=== PATIENT | male | born 1960 | race Caucasian/White ===

== ENCOUNTER 2018-03-05 09:18 | Inpatient (IN) ==
[2018-03-05] MEDS ORDERED: Vancomycin Inj 1,000 MG in Sodium Chlor 0.9% Inj 250 ML IV.SIG STA (09:35)
[2018-03-05] MEDS ORDERED: Piperacil/Tazo 4.5 GM Premix 4.5 GM/100 ML BAG IV.SIG STA (09:35)
--- NOTE | 2018-03-05 09:47 | ED ---
HPI General Chief complaint: Skin/Abscess/Foreign Body Stated complaint: Wound on R foot Time Seen by Provider: 03/05/18 09:28 Source: patient Mode of arrival: ambulatory Limitations: no limitations History of Present Illness HPI narrative: 57 y/o male presents with note of stepping on a nail on Friday. He states a couple days later he developed a low-grade fever. And then after that he developed redness. He went to an urgent care and they placed him on a dressing and Augmentin. He states today when it got worse he went back and they sent him here for further care given infection is spreading. He does note that he is a diabetic. Quality is red. Location is right leg. Severity is progressive. He denies specific modifying factors. He states he did get a tetanus at the urgent care. Related Data Home Medications Medication Instructions Recorded Confirmed albuterol sulfate [Ventolin HFA] 1 - 2 puff INHALATION Q4-6H PRN 03/05/18 ascorbic acid (vitamin C) [Vitamin 250 mg PO DAILY 03/05/18 03/05/18 C] atorvastatin 80 mg PO DAILY 03/05/18 03/05/18 beta carotene 5,000 unit PO DAILY 03/05/18 03/05/18 cholecalciferol (vitamin D3) 2,000 unit PO DAILY 03/05/18 03/05/18 [Vitamin D3] exenatide microspheres [Bydureon 2 mg SUBCUT Q7D 03/05/18 03/05/18 BCise] fluticasone 2 spray INTRANASAL HS 03/05/18 03/05/18 fluticasone-salmeterol [Advair 1 inh INHALATION BID 03/05/18 03/05/18 Diskus] glimepiride 2 mg PO BID 03/05/18 03/05/18 insulin degludec [Tresiba 30 unit SUBCUT HS 03/05/18 03/05/18 FlexTouch U-100] lisinopril 10 mg PO DAILY 03/05/18 03/05/18 metformin 1,000 mg PO DAILY 03/05/18 03/05/18 multivitamin 1 tab PO DAILY 03/05/18 03/05/18 omega-3 fatty acids [Fish Oil 1,000 mg PO DAILY 03/05/18 03/05/18 Concentrate] sildenafil 25 mg PO DAILY PRN 03/05/18 03/05/18 vit B complex 100 combo no.2 1 tab PO DAILY 03/05/18 03/05/18 [B-100 Complex] vitamin E 200 unit PO DAILY 03/05/18 03/05/18 Allergies Allergy/AdvReac Type Severity Reaction Status Date / Time No Known Allergies Allergy Verified 03/05/18 09:21 Review of Systems ROS: all other systems reviewed are negative FOR[facility]LY [facility] Medical History Medical History Diabetes (Acute) Elevated cholesterol (Acute) HTN (hypertension) (Acute) History of traumatic rupture of spleen (Acute) Kidney stone (Acute) Peripheral neuropathy (Acute) Surgical History Surgical History History of foot surgery (Acute) History of surgical procedure on eye proper using laser (Acute) History of tonsillectomy and adenoidectomy (Acute) Hx of sinus surgery (Acute) Social History Social History Substance History: No History of Abuse Smoking Status: Former smoker How Often Do You Have a Drink Containing Alcohol: Monthly or less Recent Travel in [place] within the Last 8 Weeks: No Recent Out of Country Travel within the Last 8 Weeks: No Exam Narrative Exam Narrative: GENERAL: 57 y/o male in no apparent distress SKIN: Patient has erythema and warmth noted to the top of his right foot. He also has a secondary area to his right upper medial leg just below his knee that has erythema and warmth. To the plantar aspect of his right foot he has a small cut noted without active drainage at the moment that also has concurrent erythema and warmth, no crepitus, no obvious induration HEAD: Atraumatic. Normocephalic. EYES: Pupils equal and round. No scleral icterus. No injection or drainage. ENT: No nasal bleeding or discharge. Mucous membranes pink and moist. NECK: Trachea midline. No JVD. CARDIOVASCULAR: Regular rate and rhythm. RESPIRATORY: No accessory muscle use. GASTROINTESTINAL: Abdomen nondistended. MUSCULOSKELETAL: No obvious deformities. No clubbing. No cyanosis. Pain with palpation of right foot, no pain with other joints , neurovascularly intact, compartments soft. NEUROLOGICAL: Awake and alert. No obvious cranial nerve deficits. Motor grossly within normal limits. Normal speech. PSYCHIATRIC: Appropriate mood and affect; insight and judgment normal. Course Reevaluation(s) Reevaluation #1: patient updated and agrees to admit and mri Consultations Consultation #1: dr martinez states to get mri stat and can admit to [facility] Consultation #2: dr cunningham agrees to admit Initial Documented Vital Signs Temperature 98.7 F 03/05/18 09:21 Pulse Rate 99 H 03/05/18 09:21 Respiratory Rate 16 03/05/18 09:21 Pulse Oximetry 96 03/05/18 09:21 Last Documented Vital Signs Temperature 98.7 F 03/05/18 09:21 Pulse Rate 95 H 03/05/18 10:15 Respiratory Rate 16 03/05/18 10:15 Blood Pressure 119/71 03/05/18 10:15 Pulse Oximetry 96 03/05/18 10:15 Medical Decision Making MDM Narrative Medical decision making narrative: Will check blood work, x-ray and reevaluate Medical Screen Exam Complete: Yes Emergency Medical Condition: Yes Differential Diagnosis Differential Diagnosis: Abscess, cellulitis, foreign body Lab Data Lab results reviewed: Yes I reviewed the patient's lab results. Result diagrams: 03/05/18 11:00 03/05/18 11:00 Lab Results 03/05/18 03/05/18 03/05/18 Range/Units 10:19 11:00 11:00 CBC w Diff Auto diff final WBC 10.0 (4.0-11.0) th/mm3 RBC 4.71 (4.50-5.90) mil/mm3 Hgb 14.1 (13.0-17.0) gm/dL Hct 43.1 (39.0-51.0) % MCV 91.6 (80.0-100.0) fL MCH 29.9 (27.0-34.0) pg MCHC 32.7 (32.0-36.0) % RDW 13.3 (11.6-17.2) % Plt Count 236 (150-450) th/mm3 MPV 7.8 (7.0-11.0) fL Neut % (Auto) 80.1 H (16.0-70.0) % Lymph % (Auto) 9.4 (9.0-44.0) % [place] % (Auto) 8.0 (0.0-8.0) % Eos % (Auto) 1.8 (0.0-4.0) % Baso % (Auto) 0.7 (0.0-2.0) % Neut # (Auto) 8.0 H (1.8-7.7) th/mm3 Lymph # (Auto) 0.9 L (1.0-4.8) th/mm3 [place] # (Auto) 0.8 (0.0-0.9) th/mm3 Eos # (Auto) 0.2 (0.0-0.4) th/mm3 Baso # (Auto) 0.1 (0.0-0.2) th/mm3 WBC Differential . Differential Comment . Sodium 137 (136-145) meq/L Potassium 4.1 (3.5-5.1) meq/L Chloride 101 (98-107) meq/L Carbon Dioxide 24.8 (21.0-32.0) meq/L Anion Gap 11 (5-15) meq/L BUN 17 (7-18) mg/dL Creatinine 0.84 (0.60-1.30) mg/dL Estimated GFR Greater than 89 (>89) mL/min POC Glucose 147 H (68-110) mg/dl Random Glucose 125 H (74-106) mg/dL Lactic Acid (0.4-2.0) mmol/L Calcium 9.2 (8.5-10.1) mg/dL 03/05/18 Range/Units 11:00 CBC w Diff WBC (4.0-11.0) th/mm3 RBC (4.50-5.90) mil/mm3 Hgb (13.0-17.0) gm/dL Hct (39.0-51.0) % MCV (80.0-100.0) fL MCH (27.0-34.0) pg MCHC (32.0-36.0) % RDW (11.6-17.2) % Plt Count (150-450) th/mm3 MPV (7.0-11.0) fL Neut % (Auto) (16.0-70.0) % Lymph % (Auto) (9.0-44.0) % [place] % (Auto) (0.0-8.0) % Eos % (Auto) (0.0-4.0) % Baso % (Auto) (0.0-2.0) % Neut # (Auto) (1.8-7.7) th/mm3 Lymph # (Auto) (1.0-4.8) th/mm3 [place] # (Auto) (0.0-0.9) th/mm3 Eos # (Auto) (0.0-0.4) th/mm3 Baso # (Auto) (0.0-0.2) th/mm3 WBC Differential Differential Comment Sodium (136-145) meq/L Potassium (3.5-5.1) meq/L Chloride (98-107) meq/L Carbon Dioxide (21.0-32.0) meq/L Anion Gap (5-15) meq/L BUN (7-18) mg/dL Creatinine (0.60-1.30) mg/dL Estimated GFR (>89) mL/min POC Glucose (68-110) mg/dl Random Glucose (74-106) mg/dL Lactic Acid 1.1 (0.4-2.0) mmol/L Calcium (8.5-10.1) mg/dL Imaging Data Attestation: I personally reviewed and interpreted this imaging study as follows : Radiologist's impression: Foot X-Ray 03/05/18 09:35 CONCLUSION: 1. There is gas within the subcutaneous tissues which overlie the proximal phalanx of the second digit. No retained foreign body or destructive changes are seen within the proximal phalanx of the second digit. 2. Previous attempted fusion with failure of the hardware and advanced degenerative changes. Discharge Plan Discharge Disposition Patient Disposition: 30 Still Patient Discharge Details Diagnosis: Diabetic infection of right foot Physicians Team ED Provider: Dawn Hinds Primary Care Provider: Juhi Weller Rxs /Orders / Referrals /Forms Prescriptions: No Action multivitamin Tablet 1 tab PO DAILY RF: 0 fluticasone-salmeterol [Advair Diskus] 250-50 mcg/dose Blister With Device 1 inh INHALATION BID RF: 0 atorvastatin 80 mg Tablet 80 mg PO DAILY RF: 0 vitamin E 200 unit Capsule 200 unit PO DAILY RF: 0 omega-3 fatty acids [Fish Oil Concentrate] 1,000 mg Capsule 1,000 mg PO DAILY RF: 0 sildenafil 25 mg Tablet 25 mg PO DAILY PRN (Reason: activity) RF: 0 glimepiride 2 mg Tablet 2 mg PO BID RF: 0 ascorbic acid (vitamin C) [Vitamin C] 250 mg Tablet 250 mg PO DAILY RF: 0 metformin 1,000 mg Tablet 1,000 mg PO DAILY RF: 0 lisinopril 10 mg Tablet 10 mg PO DAILY RF: 0 beta carotene 10,000 unit Capsule 5,000 unit PO DAILY RF: 0 albuterol sulfate [Ventolin HFA] 90 mcg/actuation Hfa Aerosol Inhaler 1 - 2 puff INHALATION Q4-6H PRN (Reason: Shortness Of Breath) RF: 0 fluticasone 50 mcg/actuation [place],Suspension 2 spray Intranasal HS RF: 0 vit B complex 100 combo no.2 [B-100 Complex] 100 mg Tablet Extended Release 1 tab PO DAILY RF: 0 insulin degludec [Tresiba FlexTouch U-100] 100 unit/mL (3 mL) Insulin Pen 30 unit SUBCUT HS RF: 0 exenatide microspheres [Bydureon BCise] 2 mg/0.85 mL Auto-Injector 2 mg SUBCUT Q7D RF: 0 cholecalciferol (vitamin D3) [Vitamin D3] 2,000 unit Capsule 2,000 unit PO DAILY RF: 0 Discharge Interventions Interventions: Vital Signs Last Done: 03/05/18 10:15 Status ED Status: Admitted Patient
--- NOTE | 2018-03-05 10:09 | XR ---
EXAM DATE: 03/05/2018 9:54 AM EST AGE/SEX: 57 years / Male INDICATIONS: Right foot redness and swelling; stepped on nail. Wound on plantar surface of the right foot. CLINICAL DATA: This is the patient's initial encounter. Patient reports that signs and symptoms have been present for 4 - 6 days and indicates a pain score of 6/10. MEDICAL/SURGICAL HISTORY: Diabetes. . ORIF right foot/ ankle. COMPARISON: No prior exams available for comparison. FINDINGS: The examination demonstrates postsurgical changes involving the right foot. There has been attempted fusion of the talonavicular joint as well as the calcaneocuboid joint. The orthopedic hardware is fra ctured in multiple pieces. There are degenerative changes and pes planus. There appears to have been an old patellar dome fracture. The examination demonstrates gas in the deep subcutaneous tissues of the plantar surface of the right foot. The gas overlies the proximal phalanx of the second digit. I see no cortical destruction. CONCLUSION: 1. There is gas within the subcutaneous tissues which overlie the proximal phalanx of the second dig it. No retained foreign body or destructive changes are seen within the proximal phalanx of the secon d digit. 2. Previous attempted fusion with failure of the hardware and advanced degenerative changes. Electronically signed by: Kieran Francois MD 03/05/2018 10:08 AM EST
[2018-03-05 11:11] LABS: Baso # (Auto) 0.1 th/mm3 (0.0-0.2); Baso % (Auto) 0.7 % (0.0-2.0); Eos # (Auto) 0.2 th/mm3 (0.0-0.4); Eos % (Auto) 1.8 % (0.0-4.0); Hematocrit 43.1 % (39.0-51.0); Hemoglobin 14.1 gm/dL (13.0-17.0); Lymph # (Auto) 0.9 th/mm3 (1.0-4.8); Lymph % (Auto) 9.4 % (9.0-44.0); Mean Corpuscular HGB Conc 32.7 % (32.0-36.0); Mean Corpuscular Hemoglobin 29.9 pg (27.0-34.0); Mean Corpuscular Volume 91.6 fL (80.0-100.0); Mean Platelet Volume 7.8 fL (7.0-11.0); Mono # (Auto) 0.8 th/mm3 (0.0-0.9); Neut % (Auto) 80.1 % (16.0-70.0); Platelet Count 236 th/mm3 (150-450); Red Blood Count 4.71 mil/mm3 (4.50-5.90); Red Cell Distribution Width 13.3 % (11.6-17.2)
[2018-03-05 11:29] LABS: Chloride 101 meq/L (98-107); Potassium 4.1 meq/L (3.5-5.1); Sodium 137 meq/L (136-145)
[2018-03-05 11:32] LABS: Calcium 9.2 mg/dL (8.5-10.1); Glucose,Random 125 mg/dL (74-106)
[2018-03-05 11:33] LABS: Anion Gap 11 meq/L (5-15); Blood Urea Nitrogen 17 mg/dL (7-18); Carbon Dioxide 24.8 meq/L (21.0-32.0)
[2018-03-05 11:36] LABS: Glomerular Filtration Rate Greater Than 89 mL/min (>89)
[2018-03-05] MEDS ORDERED: Vancomycin Inj 1,000 MG in Sodium Chlor 0.9% Inj 250 ML IV.SIG ONE (12:20)
[2018-03-05] MEDS ORDERED: Dextrose 50% in Water 50 ML Vial IV.PUSH PRN (12:21)
[2018-03-05] MEDS ORDERED: Piperacil/Tazo 3.375 GM Premix 50 ML IV.SIG SCH (12:30)
--- NOTE | 2018-03-05 12:40 | P.HP ---
History of Present Illness Service: [facility] adult med Primary Care Physician: Juhi Weller MD Chief Complaint: foot wound History of Present Illness: 57 y/o male with poorly controlled DM retinopathy and prior Charcot joint presents with note of stepping on a nail on Wednesday 02/28. He states a couple days later he developed a low-grade fever and then after that he developed redness. He went to an urgent care 03/02 and they placed him on a dressing and Augmentin. He states today when it got worse he went back 03/05 for recheck and they sent him here for further care given infection is spreading. He has been taking meds as directed. Still with d/c from wound and had fevers early on as well. Culture from 03/02 reveals Staph aureus but no sensitivities resulted yet per review of outpt EMR. Foot xray reveals chronic arthritic and postsurgical changes as well as gas collection in foot. Podiatry contacted by ER provider (per ER report) and they advised MRI and admission for IV abx/ further eval. SH for 30 yrs Originally from [place], has been in the area works as a estimator and drafter No tobacco since 1997 but prior to that smoked about a pack per day for 18 years No alcohol or illicit drug use - Diagnosis (1) Diabetic infection of right foot (2) DM type 2, uncontrolled, with retinopathy (3) GERD (gastroesophageal reflux disease) (4) HTN (hypertension) (5) Hyperlipidemia Review of Systems Constitutional: Reports chills, Reports fever(s) Eyes: Reports blurry vision, Denies blind spots, Denies bulging eyes, Denies change in vision, Denies double vision, Denies discharge, Denies dry eyes, Denies floaters, Denies irritation, Denies itchy eyes, Denies loss of vision, Denies pain, Denies sensitivity to light, Denies other Ears, Nose, Mouth, and Throat: Denies abnormal hearing, Denies bleeding gums, Denies bad breath, Denies change in voice, Denies dental pain, Denies difficulty swallowing, Denies dizziness, Denies dry mouth, Denies ear discharge , Denies ear pain, Denies facial pain, Denies headache(s), Denies hearing loss, Denies hoarseness, Denies lip swelling, Denies nosebleed, Denies mouth lesions, Denies mouth pain, Denies nasal congestion, Denies nasal discharge, Denies nasal obstruction, Denies nasal trauma, Denies neck lump, Denies neck pain, Denies nose pain, Denies pain with swallowing, Denies poor balance, Denies post nasal drip, Denies ringing in the ears, Denies sinus pain, Denies sinus pressure , Denies sore throat, Denies throat swelling, Denies tongue swelling, Denies other Cardiovascular: Denies chest pain, Denies chest pain at rest, Denies chest pain with activity, Denies excessive sweating, Denies fainting, Denies fast heart rate, Denies foot swelling, Denies generalized swelling, Denies irregular heart rhythm, Denies leg pain with activity, Denies leg sores, Denies leg swelling, Denies lightheadedness, Denies radiating jaw, neck or arm pain, Denies rapid, pounding, or irregular heartbeat, Denies shortness of breath, Denies shortness of breath with activity, Denies shortness of breath when lying down, Denies shortness of breath causing sudden awakening, Denies slow heart rate, Denies other Respiratory: Denies change in phlegm color, Denies chest congestion, Denies cough, Denies coughing up blood, Denies excessive phlegm production, Denies pain on inspiration, Denies pain with cough, Denies shortness of breath, Denies shortness of breath with activity, Denies snoring, Denies stridor, Denies wheezing, Denies other Gastrointestinal: Denies abdominal pain, Denies belching, Denies black, tarry stools, Denies bloating, Denies bright, red blood in stools, Denies change in bowel habits, Denies constant urge to pass stool, Denies change in stools, Denies coffee ground vomit, Denies constipation, Denies cramping, Denies difficulty swallowing, Denies excessive passing of gas, Denies feeling full early, Denies heartburn, Denies incontinent of stools, Denies loose stools, Denies nausea, Denies pain with swallowing, Denies vomiting, Denies vomiting blood, Denies other Musculoskeletal: Reports abnormal walking, Reports deformity, Reports joint pain Skin/Breast: Reports change in skin color, Reports dry skin, Reports non- healing lesions, Reports skin ulcer, Reports wounds Neurologic: Reports abnormal walking PMFSH - History History Provided By: Patient - Medical History Medical History: Medical History (Last Updated 03/05/18 @ 12:36 by Josh Hodges MD, PhD) Hyperlipidemia (Chronic) GERD (gastroesophageal reflux disease) (Chronic) DM type 2, uncontrolled, with retinopathy (Chronic) HTN (hypertension) (Chronic) Charcot ankle Diabetes Elevated cholesterol History of traumatic rupture of spleen Kidney stone Peripheral neuropathy - Surgical History Surgical History: Surgical History (Last Updated 03/05/18 @ 12:34 by Josh Hodges MD, PhD) History of foot surgery History of nasal surgery History of surgical procedure on eye proper using laser History of tonsillectomy and adenoidectomy Hx of sinus surgery - Family History Family History: Family History (Last Updated 03/05/18 @ 12:34 by Josh Hodges MD, PhD) Other Diabetes Hypertension - Social History I have reviewed the patient's Social History: Yes - Tobacco History Smoking Status: Former smoker Years Smoked: 18 Number of Pack Years (if former smoker): 18 Smoking End Date: 1997 - Alcohol History How Often Do You Have a Drink Containing Alcohol: Never - Substance Use History Substance History: No History of Abuse - Travel History Recent Travel in the [place] Within the Last 8 Weeks: No Recent Travel Out of the Country Within the Last 8 Weeks: No - Immunization History Tetanus Immunization: <5 Years (03/02/18) Tetanus Immunization Year if Known: 2017 Medications and Allergies Active Medications: Active Medications Dextrose (D50w Vial) 50 ml IV.PUSH UNSCH PRN PRN Reason: PER HYPOGLYCEMIA PROTOCOL Glucagon (Glucagon Inj) 1 mg OTHER PRN PRN PRN Reason: for Hypoglycemia Protocol Sodium Chloride (Ns Inj) 1,000 mls @ 100 mls/hr IV.CONT .Q10H MALACHI Stop: 03/06/18 08:29 Vancomycin HCl 1,000 mg/ (Sodium Chloride) 250 mls @ 250 mls/hr IV.SIG ONCE ONE Stop: 03/05/18 13:19 Piperacillin/Tazobactam/Dextrose (Zosyn 3.375 Gm Premix) 50 mls @ 100 mls/hr IV.SIG Q8H MALACHI Insulin Aspart (Novolog Insulin Correctional Sugar Inj) 0 unit SQ ACHS MALACHI; Protocol Pharmacy Profile Note (Vancomycin Consult Pharmacy) 1 each OTHER UNSCH PRN PRN Reason: Pharmacy to dose Allergies Allergy/AdvReac Type Severity Reaction Status Date / Time No Known Allergies Allergy Verified 03/05/18 09:21 Home Medications Medication Instructions Recorded Confirmed Type albuterol sulfate [Ventolin HFA] 1 - 2 puff INHALATION Q4-6H PRN 03/05/18 History ascorbic acid (vitamin C) [Vitamin 250 mg PO DAILY 03/05/18 03/05/18 History C] atorvastatin 80 mg PO DAILY 03/05/18 03/05/18 History beta carotene 5,000 unit PO DAILY 03/05/18 03/05/18 History cholecalciferol (vitamin D3) 2,000 unit PO DAILY 03/05/18 03/05/18 History [Vitamin D3] exenatide microspheres [Bydureon 2 mg SUBCUT Q7D 03/05/18 03/05/18 History BCise] fluticasone 2 spray INTRANASAL HS 03/05/18 03/05/18 History fluticasone-salmeterol [Advair 1 inh INHALATION BID 03/05/18 03/05/18 History Diskus] glimepiride 2 mg PO BID 03/05/18 03/05/18 History insulin degludec [Tresiba 30 unit SUBCUT HS 03/05/18 03/05/18 History FlexTouch U-100] lisinopril 10 mg PO DAILY 03/05/18 03/05/18 History metformin 1,000 mg PO DAILY 03/05/18 03/05/18 History multivitamin 1 tab PO DAILY 03/05/18 03/05/18 History omega-3 fatty acids [Fish Oil 1,000 mg PO DAILY 03/05/18 03/05/18 History Concentrate] sildenafil 25 mg PO DAILY PRN 03/05/18 03/05/18 History vit B complex 100 combo no.2 1 tab PO DAILY 03/05/18 03/05/18 History [B-100 Complex] vitamin E 200 unit PO DAILY 03/05/18 03/05/18 History Exam Vital signs: Vital Signs 03/05/18 09:21 03/05/18 10:15 Temperature 98.7 F Pulse Rate 99 H 95 H Respiratory Rate 16 16 Blood Pressure 119/71 Pulse Oximetry 96 96 Intake & Output 11/28/18 11/29/18 11/29/18 18:59 06:59 18:59 Intake Total 100 / 100 Balance 100 / 100 Weight 113 kg Intake: IV 100 / 100 Zosyn 4.5 GM Premix 4.5 gm In 100 / 100 100 ml @ 200 mls/hr IV.SIG STAT STA Rx#:[id number] Narrative: GENERAL: No acute distress, alert and oriented, cooperative with exam SKIN: Warm and dry. Right lower extremity with erythematous patch medial proximal calf, right distal foot with erythema and edema as well as tenderness to palpation. Right distal foot plantar aspect with open wound with yellowish to serous drainage. HEAD: Atraumatic. Normocephalic. EYES: Pupils equal and round. No scleral icterus. No injection or drainage. ENT: No nasal bleeding or discharge. Mucous membranes pink and moist. NECK: Trachea midline. No JVD. CARDIOVASCULAR: Regular rate and rhythm. No murmur appreciated. RESPIRATORY: No accessory muscle use. Clear to auscultation. Breath sounds equal bilaterally. GASTROINTESTINAL: Abdomen soft, non-tender, nondistended. Hepatic and splenic margins not palpable. MUSCULOSKELETAL: Extremities without clubbing, cyanosis, or edema. No obvious deformities. Right lower extremity as above. Chronic Charcot joint changes right ankle. NEUROLOGICAL: Awake and alert. No obvious cranial nerve deficits. Motor grossly within normal limits. Five out of 5 muscle strength in the arms and legs. Normal speech. PSYCHIATRIC: Appropriate mood and affect; insight and judgment normal. Results - Labs CBC & Chem 7: 03/05/18 11:00 03/05/18 11:00 Labs: Laboratory Results - last 24 hr 03/05/18 03/05/18 03/05/18 10:19 11:00 11:00 CBC w Diff Auto diff final WBC 10.0 RBC 4.71 Hgb 14.1 Hct 43.1 MCV 91.6 MCH 29.9 MCHC 32.7 RDW 13.3 Plt Count 236 MPV 7.8 Neut % (Auto) 80.1 H Lymph % (Auto) 9.4 [place] % (Auto) 8.0 Eos % (Auto) 1.8 Baso % (Auto) 0.7 Neut # (Auto) 8.0 H Lymph # (Auto) 0.9 L [place] # (Auto) 0.8 Eos # (Auto) 0.2 Baso # (Auto) 0.1 WBC Differential . Differential Comment . Sodium 137 Potassium 4.1 Chloride 101 Carbon Dioxide 24.8 Anion Gap 11 BUN 17 Creatinine 0.84 Estimated GFR Greater than 89 POC Glucose 147 H Random Glucose 125 H Lactic Acid Calcium 9.2 03/05/18 11:00 CBC w Diff WBC RBC Hgb Hct MCV MCH MCHC RDW Plt Count MPV Neut % (Auto) Lymph % (Auto) [place] % (Auto) Eos % (Auto) Baso % (Auto) Neut # (Auto) Lymph # (Auto) [place] # (Auto) Eos # (Auto) Baso # (Auto) WBC Differential Differential Comment Sodium Potassium Chloride Carbon Dioxide Anion Gap BUN Creatinine Estimated GFR POC Glucose Random Glucose Lactic Acid 1.1 Calcium - Imaging Impressions Foot X-Ray 03/05/18 09:35 CONCLUSION: 1. There is gas within the subcutaneous tissues which overlie the proximal phalanx of the second digit. No retained foreign body or destructive changes are seen within the proximal phalanx of the second digit. 2. Previous attempted fusion with failure of the hardware and advanced degenerative changes. Caprini VTE Risk Assessment Caprini VTE Risk Assessment: Moderate/High Risk (score >= 2) Caprini Risk Assessment Model: Point Value = 1 Point Value = 2 Point Value = 3 Point Value = 5 Age 41-60 Minor surgery BMI > 25 kg/m2 Swollen legs Varicose veins or History of unexplained or recurrent spontaneous Oral contraceptives or hormone replacement Sepsis (< 1 month) Serious lung disease, including pneumonia (< 1 month) Abnormal pulmonary function Acute myocardial infarction Congestive heart failure (< 1 month) History of inflammatory bowel disease Medical patient at bed rest Age 61-74 Arthroscopic surgery Major open surgery (> 45 min) Laparoscopic surgery (> 45 min) Malignancy Confined to bed (> 72 hours) Immobilizing plaster cast Central venous access Age >= 75 History of VTE Family history of VTE Factor V Leiden Prothrombin [id number] Lupus anticoagulant Anticardiolipin antibodies Elevated serum homocysteine Heparin-induced thrombocytopenia Other congenital or acquired thrombophilia Stroke (< 1 month) Elective arthroplasty Hip, pelvis, or leg fracture Acute spinal cord injury (< 1 month) Prophylaxis Regimen: Total Risk Factor Score Risk Level Prophylaxis Regimen 0-1 Low Early ambulation 2 Moderate Order ONE of the following: *Sequential Compression Device (SCD) *Heparin 5000 units SQ BID 3-4 Higher Order ONE of the following medications: *Heparin 5000 units SQ TID *Enoxaparin/Lovenox 40 mg SQ daily (WT < 150 kg, CrCl > 30 mL/min) *Enoxaparin/Lovenox 30 mg SQ daily (WT < 150 kg, CrCl > 10-29 mL/min) *Enoxaparin/Lovenox 30 mg SQ BID (WT < 150 kg, CrCl > 30 mL/min) AND/OR *Sequential Compression Device (SCD) 5 or more Highest Order ONE of the following medications: *Heparin 5000 units SQ TID (Preferred with Epidurals) *Enoxaparin/Lovenox 40 mg SQ daily (WT < 150 kg, CrCl > 30 mL/min) *Enoxaparin/Lovenox 30 mg SQ daily (WT < 150 kg, CrCl > 10-29 mL/min) *Enoxaparin/Lovenox 30 mg SQ BID (WT < 150 kg, CrCl > 30 mL/min) AND *Sequential Compression Device (SCD) Assessment and Plan - Assessment (1) Diabetic infection of right foot Code(s): E11.628 - Type 2 diabetes mellitus with other skin complications; L08.9 - Local infection of the skin and subcutaneous tissue, unspecified Status: Acute Plan: Recurrent issue, but acute flare due to recent puncture wound. Podiatry consult , IV Abx, MRI ordered per d/w ER provider. Rula growing in outpt cltx. Podiatry in the room during my exam and appears to be preparing for bedside I&D of right foot wound. (2) DM type 2, uncontrolled, with retinopathy Code(s): E11.319 - Type 2 diabetes mellitus with unspecified diabetic retinopathy without macular edema; E11.65 - Type 2 diabetes mellitus with hyperglycemia Status: Chronic Plan: accucheck with SSI initiated A1c 8.4 in Jan 2018. Advised wt loss. (3) GERD (gastroesophageal reflux disease) Code(s): K21.9 - Gastro-esophageal reflux disease without esophagitis Status: Chronic Plan: provide zantac or similar med (4) HTN (hypertension) Code(s): I10 - Essential (primary) hypertension Status: Chronic Plan: continue meds as BP permits (5) Hyperlipidemia Code(s): E78.5 - Hyperlipidemia, unspecified Status: Chronic Plan: continue med - Plan Code Status: full Discussed Condition With: Patient, lymphedema therapist and ER provider (4) HTN (hypertension) Qualifiers: Hypertension type: essential hypertension Qualified Code(s): I10 - Essential (primary) hypertension
[2018-03-05] MEDS ORDERED: Gadobutrol PF 2 MMOL/2 ML Vial (for RAD) IV.SIG ONE (13:22)
[2018-03-05] MEDS ORDERED: Vancomycin Consult Pharmacy OTHER PRN (13:30)
[2018-03-05] MEDS ORDERED: Lidocaine 1% Inj 50 ML Vial ONE (15:25)
--- NOTE | 2018-03-05 15:35 | MR ---
EXAM DATE: 03/05/2018 1:28 PM EST AGE/SEX: 57 years / Male INDICATIONS: Abscess. Abscess on proximal plantar aspect of right foot. CLINICAL DATA: This is the patient's initial encounter. Patient reports that signs and symptoms have been present for 1 week and indicates a pain score of 3/10. MEDICAL/SURGICAL HISTORY: Hypertension. Diabetes mellitus type II. Tonsillectomy. Right foot a nd sinus surgery. COMPARISON: [facility], FOOT COMPLETE RIGHT 3V, 03/05/2018. . TECHNIQUE: Multiplanar, multisequence MRI examination was performed without contrast and after th e intravenous administration of 11 ml Omniscan (gadodiamide) single exam dose. FINDINGS: There is a roughly 3 cm x 2 cm x 9 mm presumed phlegmonous collection in the plantar soft tissues sup erficial to the second third toe proximal phalanges with hypointense specks internally consistent wit h air as noted on the patient's plain films. The underlying bony elements are grossly benign in appea gigi with no findings to specifically suggest associated osteomyelitis or adjacent septic arthritis. The processes superficial to the flexor tendon structures. CONCLUSION: Small presumed phlegmonous collection in the plantar soft tissues of the right forefoot as described Electronically signed by: Jay Chappell MD 03/05/2018 3:33 PM EST
--- NOTE | 2018-03-05 15:54 | P.CON ---
History of Present Illness Service: Foot and ankle surgery/podiatry Consult date: 03/05/18 Reason for Consult: Right foot wound Primary Care Provider: Juhi Weller MD Chief Complaint: foot wound History of Present Illness: Podiatry consulted for this 57-year-old male with poorly controlled diabetes history of right foot Charcot reconstruction for submetatarsal two wound. Patient states he stepped on a nail Wednesday 02/28. He developed a low-grade fever and was given oral antibiotics in urgent care on 03/02. Patient states he noticed that the infection was getting worse he went back to urgent care and they referred him for hospital admission. Patient states his been taking Augmentin as directed patient does report drainage. Patient denies any nausea vomiting fevers or chills. He reports neuropathy to right foot. Review of Systems Constitutional: Denies anorexia, Denies body ache(s), Denies chills, Denies fever(s), Denies headache(s), Denies night sweats Gastrointestinal: Denies nausea, Denies vomiting PMFSH - History History Provided By: Patient - Medical History Medical History: Medical History (Last Updated 03/05/18 @ 12:36 by Josh Hodges MD, PhD) Hyperlipidemia (Chronic) GERD (gastroesophageal reflux disease) (Chronic) DM type 2, uncontrolled, with retinopathy (Chronic) HTN (hypertension) (Chronic) Charcot ankle Diabetes Elevated cholesterol History of traumatic rupture of spleen Kidney stone Peripheral neuropathy - Surgical History Surgical History: Surgical History (Last Updated 03/05/18 @ 12:34 by Josh Hodges MD, PhD) History of foot surgery History of nasal surgery History of surgical procedure on eye proper using laser History of tonsillectomy and adenoidectomy Hx of sinus surgery - Family History Family History: Family History (Last Updated 03/05/18 @ 12:34 by Josh Hodges MD, PhD) Other Diabetes Hypertension - Tobacco History Second Hand Smoke Exposure: No Tobacco Use In Past 30 Days: No Smoking Status: Former smoker Years Smoked: 18 Number of Pack Years (if former smoker): 18 Smoking End Date: 1997 - Alcohol History How Often Do You Have a Drink Containing Alcohol: Never - Substance Use History Substance History: No History of Abuse - Travel History Recent Travel in the [place] Within the Last 8 Weeks: No Recent Travel Out of the Country Within the Last 8 Weeks: No - Immunization History Tetanus Immunization: <5 Years (03/02/18) Tetanus Immunization Year if Known: 2018 Medications and Allergies Active Medications: Active Medications Albuterol (Ventolin Hfa Inh) 2 puff INH Q4H PRN PRN Reason: SHORTNESS OF BREATH Atorvastatin Calcium (Lipitor) 80 mg PO DAILY MALACHI Dextrose (D50w Vial) 50 ml IV.PUSH UNSCH PRN PRN Reason: PER HYPOGLYCEMIA PROTOCOL Fluticasone Propionate (Flonase Nasal [place]) 2 spray EACH NARE HS MALACHI Glucagon (Glucagon Inj) 1 mg OTHER PRN PRN PRN Reason: for Hypoglycemia Protocol Sodium Chloride (Ns Inj) 1,000 mls @ 100 mls/hr IV.CONT .Q10H MALACHI Stop: 03/06/18 08:29 Piperacillin/Tazobactam/Dextrose (Zosyn 3.375 Gm Premix) 50 mls @ 100 mls/hr IV.SIG Q8H MALACHI Vancomycin HCl 1,800 mg/ (Sodium Chloride) 518 mls @ 250 mls/hr IV.SIG Q12H MALACHI Insulin Aspart (Novolog Insulin Correctional Sugar Inj) 0 unit SQ ACHS MALACHI; Protocol Lisinopril (Prinivil) 10 mg PO DAILY MALACHI Miscellaneous Information ([facility] Ordered Lab Info) 0 each OTHER ONCE ONE Stop: 03/07/18 07:46 Pharmacy Profile Note (Vancomycin Consult Pharmacy) 1 each OTHER UNSCH PRN PRN Reason: Pharmacy to dose Vitamin D (Vitamin D3) 2,000 unit PO DAILY MALACHI Allergies Allergy/AdvReac Type Severity Reaction Status Date / Time No Known Allergies Allergy Verified 03/05/18 09:21 Home Medications Medication Instructions Recorded Confirmed Type albuterol sulfate [Ventolin HFA] 1 - 2 puff INHALATION Q4-6H PRN 03/05/18 History ascorbic acid (vitamin C) [Vitamin 250 mg PO DAILY 03/05/18 03/05/18 History C] atorvastatin 80 mg PO DAILY 03/05/18 03/05/18 History beta carotene 5,000 unit PO DAILY 03/05/18 03/05/18 History cholecalciferol (vitamin D3) 2,000 unit PO DAILY 03/05/18 03/05/18 History [Vitamin D3] exenatide microspheres [Bydureon 2 mg SUBCUT Q7D 03/05/18 03/05/18 History BCise] fluticasone 2 spray INTRANASAL HS 03/05/18 03/05/18 History fluticasone-salmeterol [Advair 1 inh INHALATION BID 03/05/18 03/05/18 History Diskus] glimepiride 2 mg PO BID 03/05/18 03/05/18 History insulin degludec [Tresiba 30 unit SUBCUT HS 03/05/18 03/05/18 History FlexTouch U-100] lisinopril 10 mg PO DAILY 03/05/18 03/05/18 History metformin 1,000 mg PO DAILY 03/05/18 03/05/18 History multivitamin 1 tab PO DAILY 03/05/18 03/05/18 History omega-3 fatty acids [Fish Oil 1,000 mg PO DAILY 03/05/18 03/05/18 History Concentrate] sildenafil 25 mg PO DAILY PRN 03/05/18 03/05/18 History vit B complex 100 combo no.2 1 tab PO DAILY 03/05/18 03/05/18 History [B-100 Complex] vitamin E 200 unit PO DAILY 03/05/18 03/05/18 History Physical Exam Vital signs: Vital Signs 03/05/18 09:21 03/05/18 10:15 03/05/18 10:30 Temperature 98.7 F Pulse Rate 99 H 95 H Respiratory Rate 16 16 Blood Pressure 119/71 Pulse Oximetry 96 96 96 03/05/18 11:19 03/05/18 12:18 03/05/18 13:17 Temperature Pulse Rate 92 H 93 H 88 Respiratory Rate 16 16 16 Blood Pressure 115/73 139/71 Pulse Oximetry 96 96 97 Intake & Output 03/04/18 03/05/18 03/05/18 18:59 06:59 18:59 Intake Total 350 / 350 Balance 350 / 350 Weight 113 kg Intake: IV 350 / 350 Zosyn 4.5 GM Premix 4.5 gm In 100 / 100 100 ml @ 200 mls/hr IV.SIG STAT STA Rx#:[id number] Vancomycin Inj 1,000 MG In NS 250 / 250 Inj 250 ML @ 250 mls/hr IV.SIG STAT STA Rx#:[id number] Narrative: GENERAL: This is a well-nourished, well-developed patient, in no apparent distress. SKIN: Right foot submetatarsal wound HEAD: Atraumatic. EYES: Pupils equal round and reactive. ENT: Airway patent. NECK: Trachea midline. RESPIRATORY: Nonlabored breathing. MUSCULOSKELETAL:. Negative Homans sign bilaterally. NEUROLOGICAL: Awake and alert. Normal speech. Lower extremity physical exam: Vascular: Dorsalis pedis palpable, posterior tibial palpable. Capillary refill time within normal limits to digits times bilateral foot. Edema present to right foot with noted dorsal erythema which demarcates of the tarsal metatarsal joint and ecchymosis noted to digits 2 3 and 4. Neuro: Gross sensation intact to bilateral lower extremity. Pinpoint sensation decreased to right lower extremity. No hyperalgesia noted to bilateral lower extremity Dermatology: Right submetatarsal wound with serosanguineous drainage noted. Ecchymosis noted to digits 2 3 and 4. Erythema extending into tarsometatarsal joint noted dorsally. Musculoskeletal: Rocker-bottom deformity noted to right foot. Results - Labs CBC & Chem 7: 03/05/18 11:00 03/05/18 11:00 Labs: Laboratory Results - last 24 hr 03/05/18 03/05/18 03/05/18 10:19 11:00 11:00 CBC w Diff Auto diff final WBC 10.0 RBC 4.71 Hgb 14.1 Hct 43.1 MCV 91.6 MCH 29.9 MCHC 32.7 RDW 13.3 Plt Count 236 MPV 7.8 Neut % (Auto) 80.1 H Lymph % (Auto) 9.4 [place] % (Auto) 8.0 Eos % (Auto) 1.8 Baso % (Auto) 0.7 Neut # (Auto) 8.0 H Lymph # (Auto) 0.9 L [place] # (Auto) 0.8 Eos # (Auto) 0.2 Baso # (Auto) 0.1 WBC Differential . Differential Comment . Sodium 137 Potassium 4.1 Chloride 101 Carbon Dioxide 24.8 Anion Gap 11 BUN 17 Creatinine 0.84 Estimated GFR Greater than 89 POC Glucose 147 H Random Glucose 125 H Lactic Acid Calcium 9.2 03/05/18 11:00 CBC w Diff WBC RBC Hgb Hct MCV MCH MCHC RDW Plt Count MPV Neut % (Auto) Lymph % (Auto) [place] % (Auto) Eos % (Auto) Baso % (Auto) Neut # (Auto) Lymph # (Auto) [place] # (Auto) Eos # (Auto) Baso # (Auto) WBC Differential Differential Comment Sodium Potassium Chloride Carbon Dioxide Anion Gap BUN Creatinine Estimated GFR POC Glucose Random Glucose Lactic Acid 1.1 Calcium - Imaging Impressions Foot X-Ray 03/05/18 09:35 CONCLUSION: 1. There is gas within the subcutaneous tissues which overlie the proximal phalanx of the second digit. No retained foreign body or destructive changes are seen within the proximal phalanx of the second digit. 2. Previous attempted fusion with failure of the hardware and advanced degenerative changes. Foot MRI 03/05/18 11:27 CONCLUSION: Small presumed phlegmonous collection in the plantar soft tissues of the right forefoot as described Assessment and Plan - Plan 57-year-old male with right submetatarsal 2 ulceration secondary to stepping on a nail on 02/28 Patient examined and evaluated all questions answered Bedside incision and drainage performed Gas noted on right foot x-ray, however gas is immediately subcutaneous to wound , no concern for gas gangrene at this time Continue IV antibiotics Recommend Pseudomonas coverage Will reevaluate patient tomorrow to see if there is improvement MRI report reviewed and appreciated Do not see need for bone biopsy at this time Procedure in detail. 1% lidocaine plain infiltrated about the plantar right foot 12 cc total. Betadine prep right foot submetatarsal to wound. 10 blade utilized to create an incision. No purulent drainage noted. Malodor noted. Serous drainage noted. Tissue noted on MRI excised, all necrotic nonviable tissue excised. Copious irrigation performed. Packed with half inch packing. Right foot dressed with 4 x 4's, Daniel, Satish.
[2018-03-05] MEDS: Sod Chloride 0.9% Inj 1,000 ML IV.CONT SCH (16:11)
[2018-03-05] MEDS: Insulin NovoLOG Aspart Correctional Sugar Inj SQ SCH ×2 (16:11→20:20)
[2018-03-05] MEDS: Piperacil/Tazo 3.375 GM Premix 50 ML IV.SIG SCH (18:25)
[2018-03-05] MEDS: Vancomycin Inj 1,800 MG in Sodium Chlor 0.9% Inj 500 ML IV.SIG SCH (20:13)
[2018-03-05] MEDS: Melatonin 5 MG Tablet PO PRN (20:18)
[2018-03-06] MEDS: Piperacil/Tazo 3.375 GM Premix 50 ML IV.SIG SCH ×3 (02:34→18:03)
[2018-03-06] MEDS: Sod Chloride 0.9% Inj 1,000 ML IV.CONT SCH (06:16)
--- NOTE | 2018-03-06 07:46 | P.PN ---
Subjective Interval history: Having some pain in the right foot after I&D procedure. His reports that oxycodone seems to help him a little better as he has used this in the past. Lortab tends to give him a headache. Otherwise he believes the redness is improving. Physical Exam Vital signs: Vital Signs 03/05/18 09:21 03/05/18 10:15 03/05/18 10:30 Temperature 98.7 F Pulse Rate 99 H 95 H Respiratory Rate 16 16 Blood Pressure 119/71 Pulse Oximetry 96 96 96 03/05/18 11:19 03/05/18 12:18 03/05/18 13:17 Temperature Pulse Rate 92 H 93 H 88 Respiratory Rate 16 16 16 Blood Pressure 115/73 139/71 Pulse Oximetry 96 96 97 03/05/18 17:16 03/05/18 19:50 03/05/18 20:00 Temperature 98.2 F 99.5 F Pulse Rate 103 H 93 H Respiratory Rate 16 20 Blood Pressure 151/86 H 120/63 Pulse Oximetry 94 L 96 92 L 03/06/18 00:00 03/06/18 04:00 03/06/18 07:36 Temperature 99.2 F 97.8 F 97.8 F Pulse Rate 91 H 82 Respiratory Rate 20 16 Blood Pressure 138/71 140/86 Pulse Oximetry 96 97 Intake & Output 03/05/18 03/06/18 03/06/18 18:59 06:59 18:59 Intake Total 350 / 350 1858 / 1858 Balance 350 / 350 1858 / 1858 Weight 113 kg 114 kg Intake: IV 350 / 350 1618 / 1618 NS Inj 1,000 ML @ 100 mls/hr IV 1000 / 1000 .CONT .Q10H MALACHI Rx#:[id number] Zosyn 3.375 GM Premix 50 ML @ 100 / 100 100 mls/hr IV.SIG Q8H MALACHI Rx#: [id number] Zosyn 4.5 GM Premix 4.5 gm In 100 / 100 100 ml @ 200 mls/hr IV.SIG STAT STA Rx#:[id number] Vancomycin Inj 1,000 MG In NS 250 / 250 Inj 250 ML @ 250 mls/hr IV.SIG STAT STA Rx#:[id number] Vancomycin Inj 1,800 MG In NS 518 / 518 Inj 500 ML @ 250 mls/hr IV.SIG Q12H MALACHI Rx#:[id number] Oral 240 / 240 Other: # Voids 3 Narrative: GENERAL: This is a well-nourished, well-developed patient, in no apparent distress. Obese, cooperative. Alert and oriented. SKIN: Right foot submetatarsal wound with erythema and wound dressing. No obvious discharge on wound dressing. Visible erythema is decreasing. Left medial calf also with erythematous patch which is improving as well. HEAD: Atraumatic. Normocephalic. EYES: Pupils equal round and reactive. NECK: Trachea midline. CV: Regular rate and rhythm, no murmur. RESPIRATORY: Nonlabored breathing. Clear to auscultation. No wheeze. MUSCULOSKELETAL:. Moves all extremities well. Right lower extremity as noted above. NEUROLOGICAL: Awake and alert. Normal speech. Results - Labs CBC & Chem 7: 03/05/18 11:00 03/05/18 11:00 Laboratory Results - last 24 hr 03/05/18 03/05/18 03/05/18 10:19 11:00 11:00 CBC w Diff Auto diff final WBC 10.0 RBC 4.71 Hgb 14.1 Hct 43.1 MCV 91.6 MCH 29.9 MCHC 32.7 RDW 13.3 Plt Count 236 MPV 7.8 Neut % (Auto) 80.1 H Lymph % (Auto) 9.4 [place] % (Auto) 8.0 Eos % (Auto) 1.8 Baso % (Auto) 0.7 Neut # (Auto) 8.0 H Lymph # (Auto) 0.9 L [place] # (Auto) 0.8 Eos # (Auto) 0.2 Baso # (Auto) 0.1 WBC Differential . Differential Comment . Sodium 137 Potassium 4.1 Chloride 101 Carbon Dioxide 24.8 Anion Gap 11 BUN 17 Creatinine 0.84 Estimated GFR Greater than 89 POC Glucose 147 H Random Glucose 125 H Lactic Acid Calcium 9.2 03/05/18 03/05/18 03/06/18 11:00 20:17 07:26 CBC w Diff WBC RBC Hgb Hct MCV MCH MCHC RDW Plt Count MPV Neut % (Auto) Lymph % (Auto) [place] % (Auto) Eos % (Auto) Baso % (Auto) Neut # (Auto) Lymph # (Auto) [place] # (Auto) Eos # (Auto) Baso # (Auto) WBC Differential Differential Comment Sodium Potassium Chloride Carbon Dioxide Anion Gap BUN Creatinine Estimated GFR POC Glucose 216 H 100 Random Glucose Lactic Acid 1.1 Calcium Microbiology 03/05/18 10:15 Abscess - Foot Gram Stain - Final - Imaging Impressions Foot X-Ray 03/05/18 09:35 CONCLUSION: 1. There is gas within the subcutaneous tissues which overlie the proximal phalanx of the second digit. No retained foreign body or destructive changes are seen within the proximal phalanx of the second digit. 2. Previous attempted fusion with failure of the hardware and advanced degenerative changes. Foot MRI 03/05/18 11:27 CONCLUSION: Small presumed phlegmonous collection in the plantar soft tissues of the right forefoot as described Assessment and Plan - Assessment (1) Diabetic infection of right foot Code(s): E11.628 - Type 2 diabetes mellitus with other skin complications; L08.9 - Local infection of the skin and subcutaneous tissue, unspecified Status: Acute Plan: Recurrent issue, but acute flare due to recent puncture wound. Podiatry consult , IV Abx, MRI ordered per d/w ER provider. Staph growing in outpt cltx. Seems to be responding to vancomycin. I&D of right foot wound performed by podiatry on March 05. Continue current therapy. Change pain medication to Percocet. (2) DM type 2, uncontrolled, with retinopathy Code(s): E11.319 - Type 2 diabetes mellitus with unspecified diabetic retinopathy without macular edema; E11.65 - Type 2 diabetes mellitus with hyperglycemia Status: Chronic Plan: accucheck with SSI initiated A1c 8.4 in Jan 2018. Advised wt loss. (3) GERD (gastroesophageal reflux disease) Code(s): K21.9 - Gastro-esophageal reflux disease without esophagitis Status: Chronic Plan: provide zantac or similar med (4) HTN (hypertension) Code(s): I10 - Essential (primary) hypertension Status: Chronic Plan: continue meds as BP permits (5) Hyperlipidemia Code(s): E78.5 - Hyperlipidemia, unspecified Status: Chronic Plan: continue med - Plan Code Status: full Discussed Condition With: Patient, his and nurse aide (4) HTN (hypertension) Qualifiers: Hypertension type: essential hypertension Qualified Code(s): I10 - Essential (primary) hypertension
[2018-03-06] MEDS: Famotidine 20 MG Tablet PO SCH ×2 (09:18→20:27)
[2018-03-06] MEDS: Lisinopril 10 MG Tablet PO SCH (09:19)
[2018-03-06] MEDS: Enoxaparin Inj 30 MG/0.3 ML Syringe SQ SCH (09:19)
[2018-03-06] MEDS: Insulin NovoLOG Aspart Correctional Sugar Inj SQ SCH ×4 (09:20→20:47)
[2018-03-06] MEDS: Vancomycin Inj 1,800 MG in Sodium Chlor 0.9% Inj 500 ML IV.SIG SCH ×2 (11:18→20:27)
--- NOTE | 2018-03-06 16:30 | P.PNPOD ---
Subjective Interval history: Patient seen bedside. Denies any nausea vomiting fevers or chills. States he does see reduced redness to his right second digit. Reports pain to right foot. Physical Exam Vital signs: Vital Signs 03/05/18 17:16 03/05/18 19:50 03/05/18 20:00 Temperature 98.2 F 99.5 F Pulse Rate 103 H 93 H Respiratory Rate 16 20 Blood Pressure 151/86 H 120/63 Pulse Oximetry 94 L 96 92 L 03/06/18 00:00 03/06/18 04:00 03/06/18 07:36 Temperature 99.2 F 97.8 F 97.8 F Pulse Rate 91 H 82 Respiratory Rate 20 16 Blood Pressure 138/71 140/86 Pulse Oximetry 96 97 03/06/18 08:00 03/06/18 08:18 03/06/18 11:30 Temperature 97.0 F L 98.8 F Pulse Rate 81 89 Respiratory Rate 16 18 Blood Pressure 137/77 Pulse Oximetry 93 L 96 95 Intake & Output 03/05/18 03/06/18 03/06/18 18:59 06:59 18:59 Intake Total 350 / 350 1858 / 1858 Balance 350 / 350 1858 / 1858 Weight 113 kg 114 kg Intake: IV 350 / 350 1618 / 1618 NS Inj 1,000 ML @ 100 mls/hr IV 1000 / 1000 .CONT .Q10H MALACHI Rx#:[id number] Zosyn 3.375 GM Premix 50 ML @ 100 / 100 100 mls/hr IV.SIG Q8H MALACHI Rx#: [id number] Zosyn 4.5 GM Premix 4.5 gm In 100 / 100 100 ml @ 200 mls/hr IV.SIG STAT STA Rx#:[id number] Vancomycin Inj 1,000 MG In NS 250 / 250 Inj 250 ML @ 250 mls/hr IV.SIG STAT STA Rx#:[id number] Vancomycin Inj 1,800 MG In NS 518 / 518 Inj 500 ML @ 250 mls/hr IV.SIG Q12H MALACHI Rx#:[id number] Oral 240 / 240 Other: # Voids 3 Narrative: Lower extremity physical exam: Vascular: Dorsalis pedis palpable, posterior tibial palpable. Capillary refill time within normal limits to digits times bilateral foot. Edema present to right foot with noted dorsal erythema which demarcates of the tarsal metatarsal joint and ecchymosis noted to digits 2 3 and 4. Neuro: Gross sensation intact to bilateral lower extremity. Pinpoint sensation decreased to right lower extremity. No hyperalgesia noted to bilateral lower extremity Dermatology: Right submetatarsal wound with serosanguineous drainage noted. Ecchymosis noted to digits 2 3 and 4. Erythema extending into tarsometatarsal joint noted dorsally, erythema has not receded. Mildly decreased erythema noted. No purulent drainage upon compression. No abscess collection noted. Musculoskeletal: Rocker-bottom deformity noted to right foot. Medications and Allergies Active Medications: Active Medications Albuterol (Ventolin Hfa Inh) 2 puff INH Q4H PRN PRN Reason: SHORTNESS OF BREATH Atorvastatin Calcium (Lipitor) 80 mg PO DAILY [facility] Last Admin: 03/06/18 09:18 Dose: 80 mg Dextrose (D50w Vial) 50 ml IV.PUSH UNSCH PRN PRN Reason: PER HYPOGLYCEMIA PROTOCOL Doxycycline Hyclate (Vibratab) 100 mg PO Q12HR [facility] Last Admin: 03/06/18 09:19 Dose: 100 mg Enoxaparin Sodium (Lovenox Inj) 30 mg SQ DAILY [facility] Last Admin: 03/06/18 09:19 Dose: 30 mg Famotidine (Pepcid) 20 mg PO BID [facility] Last Admin: 03/06/18 09:18 Dose: 20 mg Fluticasone Propionate (Flonase Nasal [place]) 2 spray EACH NARE HS [facility] Last Admin: 03/05/18 20:13 Dose: Not Given Glucagon (Glucagon Inj) 1 mg OTHER PRN PRN PRN Reason: for Hypoglycemia Protocol Piperacillin/Tazobactam/Dextrose (Zosyn 3.375 Gm Premix) 50 mls @ 100 mls/hr IV.SIG Q8H [facility] Last Admin: 03/06/18 11:19 Dose: 100 mls/hr Vancomycin HCl 1,800 mg/ (Sodium Chloride) 518 mls @ 250 mls/hr IV.SIG Q12H [facility] Last Admin: 03/06/18 11:18 Dose: 250 mls/hr Insulin Aspart (Novolog Insulin Correctional Sugar Inj) 0 unit SQ ACHS [facility]; Protocol Last Admin: 03/06/18 11:28 Dose: Not Given Lisinopril (Prinivil) 10 mg PO DAILY [facility] Last Admin: 03/06/18 09:19 Dose: 10 mg Melatonin (Melatonin) 5 mg PO HS PRN PRN Reason: INSOMNIA Last Admin: 03/05/18 20:18 Dose: 5 mg Miscellaneous Information ([facility] Ordered Lab Info) 0 each OTHER ONCE ONE Stop: 03/07/18 07:46 Oxycodone/Acetaminophen (Percocet 5/325 Mg) 1 tab PO Q6H PRN PRN Reason: pain level 3-10 Last Admin: 03/06/18 11:19 Dose: 1 tab Pharmacy Profile Note (Vancomycin Consult Pharmacy) 1 each OTHER UNSCH PRN PRN Reason: Pharmacy to dose Trimethoprim/Sulfamethoxazole (Bactrim Ds) 1 tab PO Q12HR [facility] Last Admin: 03/06/18 09:19 Dose: 1 tab Vitamin D (Vitamin D3) 2,000 unit PO DAILY [facility] Last Admin: 03/06/18 09:26 Dose: 2,000 unit Allergies Allergy/AdvReac Type Severity Reaction Status Date / Time No Known Allergies Allergy Verified 03/05/18 09:21 Home Medications Medication Instructions Recorded Confirmed Type albuterol sulfate [Ventolin HFA] 1 - 2 puff INHALATION Q4-6H PRN 03/05/18 History ascorbic acid (vitamin C) [Vitamin 250 mg PO DAILY 03/05/18 03/05/18 History C] atorvastatin 80 mg PO DAILY 03/05/18 03/05/18 History beta carotene 5,000 unit PO DAILY 03/05/18 03/05/18 History cholecalciferol (vitamin D3) 2,000 unit PO DAILY 03/05/18 03/05/18 History [Vitamin D3] exenatide microspheres [Bydureon 2 mg SUBCUT Q7D 03/05/18 03/05/18 History BCise] fluticasone 2 spray INTRANASAL HS 03/05/18 03/05/18 History fluticasone-salmeterol [Advair 1 inh INHALATION BID 03/05/18 03/05/18 History Diskus] glimepiride 2 mg PO BID 03/05/18 03/05/18 History insulin degludec [Tresiba 30 unit SUBCUT HS 03/05/18 03/05/18 History FlexTouch U-100] lisinopril 10 mg PO DAILY 03/05/18 03/05/18 History metformin 1,000 mg PO DAILY 03/05/18 03/05/18 History multivitamin 1 tab PO DAILY 03/05/18 03/05/18 History omega-3 fatty acids [Fish Oil 1,000 mg PO DAILY 03/05/18 03/05/18 History Concentrate] sildenafil 25 mg PO DAILY PRN 03/05/18 03/05/18 History vit B complex 100 combo no.2 1 tab PO DAILY 03/05/18 03/05/18 History [B-100 Complex] vitamin E 200 unit PO DAILY 03/05/18 03/05/18 History Results - Labs CBC & Chem 7: 03/05/18 11:00 03/05/18 11:00 Laboratory Results - last 24 hr 03/05/18 03/06/18 03/06/18 20:17 07:26 11:28 POC Glucose 216 H 100 135 H Microbiology 03/05/18 10:15 Abscess - Foot Gram Stain - Final 03/05/18 10:15 Abscess - Foot Wound Culture - Preliminary Staphylococcus aureus 03/05/18 10:00 Blood - Peripheral Aerobic Blood Culture - Preliminary No growth in 1 day 03/05/18 10:00 Blood - Peripheral Anaerobic Blood Culture - Preliminary No growth in 1 day 03/05/18 10:05 Blood - Peripheral Aerobic Blood Culture - Preliminary No growth in 1 day 03/05/18 10:05 Blood - Peripheral Anaerobic Blood Culture - Preliminary No growth in 1 day Assessment and Plan - Plan 57-year-old male status post right foot bedside incision and drainage Patient examined and evaluated Right foot irrigated and packed with half inch plain packing Right foot dressed with 4 x 4's, Daniel and Satish Will re evaluate in the next 24-48 hours There is no abscess or fluid collection noted to right foot, patient will need to continue IV antibiotics Would recommend infectious disease consult if no improvement noted in the next 24/48 hours Irrigation and packing change to be performed [address] place wound care orders Nonweightbearing to right foot
[2018-03-07] MEDS: Piperacil/Tazo 3.375 GM Premix 50 ML IV.SIG SCH ×3 (01:02→17:25)
[2018-03-07] MEDS ORDERED: VANCOMYCIN TROUGH OTHER ONE (07:45)
[2018-03-07] MEDS: Lisinopril 10 MG Tablet PO SCH (08:01)
[2018-03-07] MEDS: Famotidine 20 MG Tablet PO SCH ×2 (08:02→20:40)
[2018-03-07] MEDS: Enoxaparin Inj 30 MG/0.3 ML Syringe SQ SCH (08:03)
[2018-03-07] MEDS: Insulin NovoLOG Aspart Correctional Sugar Inj SQ SCH ×4 (08:04→20:43)
[2018-03-07] MEDS: Vancomycin Inj 1,800 MG in Sodium Chlor 0.9% Inj 500 ML IV.SIG SCH ×2 (08:05→20:43)
[2018-03-07 09:04] LABS: Glomerular Filtration Rate Greater Than 89 mL/min (>89)
--- NOTE | 2018-03-07 10:32 | P.PN ---
Subjective Interval history: patient continues to have discomfort rt foot now on bactrim,doxy,vancomycin and zosyn ,podiatry following requesting ID to evaluate. Physical Exam Vital signs: Vital Signs 03/06/18 11:30 03/06/18 16:00 03/06/18 17:38 Temperature 98.8 F 98.1 F Pulse Rate 89 87 Respiratory Rate 18 14 16 Blood Pressure 137/77 136/68 Pulse Oximetry 95 96 03/06/18 19:50 03/06/18 19:58 03/06/18 23:52 Temperature 98.9 F 98.6 F Pulse Rate 88 80 Respiratory Rate 20 20 Blood Pressure 130/73 133/61 Pulse Oximetry 96 95 97 03/07/18 08:00 Temperature 97.0 F L Pulse Rate 83 Respiratory Rate 18 Blood Pressure 134/79 Pulse Oximetry 94 L Intake & Output 03/06/18 03/07/18 03/07/18 18:59 06:59 18:59 Intake Total 1858 / 1858 1528 / 1528 0 / 0 Balance 1858 / 1858 1528 / 1528 0 / 0 Weight 114.5 kg Intake: IV 1618 / 1618 568 / 568 0 / 0 NS Inj 1,000 ML @ 100 mls/hr IV 1000 / 1000 .CONT .Q10H [facility] Rx#:[id number] Zosyn 3.375 GM Premix 50 ML @ 100 / 100 50 / 50 100 mls/hr IV.SIG Q8H [facility] Rx#: [id number] Vancomycin Inj 1,800 MG In NS 518 / 518 518 / 518 0 / 0 Inj 500 ML @ 250 mls/hr IV.SIG Q12H [facility] Rx#:[id number] Oral 240 / 240 960 / 960 Other: # Voids 3 Date of Last Bowel Movement 04/04/18 Narrative: GENERAL: This is a well-nourished, well-developed patient, in no apparent distress. Obese, cooperative. Alert and oriented. SKIN: Right foot submetatarsal wound with erythema and wound dressing. No obvious discharge on wound dressing. Visible erythema is decreasing. Left medial calf also with erythematous patch which is improving as well but still with pain HEAD: Atraumatic. Normocephalic. EYES: Pupils equal round and reactive. NECK: Trachea midline. CV: Regular rate and rhythm, no murmur. RESPIRATORY: Nonlabored breathing. Clear to auscultation. No wheeze. MUSCULOSKELETAL:. Moves all extremities well. Right lower extremity as noted above. NEUROLOGICAL: Awake and alert. Normal speech. Results - Labs CBC & Chem 7: 03/05/18 11:00 03/07/18 06:47 Laboratory Results - last 24 hr 03/06/18 03/06/18 03/06/18 11:28 17:09 20:42 Creatinine Estimated GFR POC Glucose 135 H 194 H 184 H Vancomycin Trough 03/07/18 03/07/18 03/07/18 06:47 07:37 07:38 Creatinine 0.76 Estimated GFR Greater than 89 POC Glucose 169 H Vancomycin Trough 14.2 H Microbiology 03/05/18 10:15 Abscess - Foot Gram Stain - Final 03/05/18 10:15 Abscess - Foot Wound Culture - Preliminary Staphylococcus aureus Streptococcus species anaerobic gram negative rods 03/05/18 10:00 Blood - Peripheral Aerobic Blood Culture - Preliminary No growth in 1 day 03/05/18 10:00 Blood - Peripheral Anaerobic Blood Culture - Preliminary No growth in 1 day 03/05/18 10:05 Blood - Peripheral Aerobic Blood Culture - Preliminary No growth in 1 day 03/05/18 10:05 Blood - Peripheral Anaerobic Blood Culture - Preliminary No growth in 1 day Assessment and Plan - Assessment (1) Diabetic infection of right foot Code(s): E11.628 - Type 2 diabetes mellitus with other skin complications; L08.9 - Local infection of the skin and subcutaneous tissue, unspecified Status: Acute Plan: Recurrent issue, but acute flare due to recent puncture wound. Podiatry consult , IV Abx, MRI ordered per d/w ER provider. Staph growing in outpt cltx. Seems to be responding to vancomycin. I&D of right foot wound performed by podiatry on March 05. Continue current therapy. Change pain medication to Percocet.,also added based on cultures doxycline ,bactrim Podiatry requests ID to evaluate. Patient had right foot irrigated and packed. (2) DM type 2, uncontrolled, with retinopathy Code(s): E11.319 - Type 2 diabetes mellitus with unspecified diabetic retinopathy without macular edema; E11.65 - Type 2 diabetes mellitus with hyperglycemia Status: Chronic Plan: accucheck with SSI initiated A1c 8.4 in Jan 2018. Advised wt loss. (3) GERD (gastroesophageal reflux disease) Code(s): K21.9 - Gastro-esophageal reflux disease without esophagitis Status: Chronic Plan: provide zantac or similar med (4) HTN (hypertension) Code(s): I10 - Essential (primary) hypertension Status: Chronic Plan: continue meds as BP permits (5) Hyperlipidemia Code(s): E78.5 - Hyperlipidemia, unspecified Status: Chronic Plan: continue med - Plan ask for ID and continued podiatry care (4) HTN (hypertension) Qualifiers: Hypertension type: essential hypertension Qualified Code(s): I10 - Essential (primary) hypertension
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
[2018-03-07] MEDS: Melatonin 5 MG Tablet PO PRN (20:41)
[2018-03-08] MEDS: Piperacil/Tazo 3.375 GM Premix 50 ML IV.SIG SCH ×4 (07:39→18:28)
[2018-03-08] MEDS: Insulin NovoLOG Aspart Correctional Sugar Inj SQ SCH ×4 (07:49→21:27)
[2018-03-08] MEDS: Enoxaparin Inj 30 MG/0.3 ML Syringe SQ SCH (08:24)
[2018-03-08] MEDS: Lisinopril 10 MG Tablet PO SCH (08:25)
[2018-03-08] MEDS: Vancomycin Inj 1,800 MG in Sodium Chlor 0.9% Inj 500 ML IV.SIG SCH ×2 (08:25→21:03)
[2018-03-08] MEDS: Famotidine 20 MG Tablet PO SCH ×2 (08:25→21:04)
[2018-03-08 08:38] LABS: Baso % (Auto) 0.5 % (0.0-2.0); Eos # (Auto) 0.3 th/mm3 (0.0-0.4); Eos % (Auto) 4.5 % (0.0-4.0); Hemoglobin 13.5 gm/dL (13.0-17.0); Lymph % (Auto) 12.6 % (9.0-44.0); Mean Corpuscular HGB Conc 33.8 % (32.0-36.0); Mean Corpuscular Hemoglobin 30.2 pg (27.0-34.0); Mean Corpuscular Volume 89.3 fL (80.0-100.0); Mean Platelet Volume 7.8 fL (7.0-11.0); Mono # (Auto) 0.7 th/mm3 (0.0-0.9); Mono % (Auto) 8.6 % (0.0-8.0); Neut # (Auto) 5.8 th/mm3 (1.8-7.7); Neut % (Auto) 73.8 % (16.0-70.0); Platelet Count 252 th/mm3 (150-450); Red Blood Count 4.48 mil/mm3 (4.50-5.90); Red Cell Distribution Width 12.7 % (11.6-17.2); White Blood Count 7.8 th/mm3 (4.0-11.0)
[2018-03-08 09:10] LABS: Anion Gap 7 meq/L (5-15); Blood Urea Nitrogen 15 mg/dL (7-18); Calcium 8.8 mg/dL (8.5-10.1); Carbon Dioxide 26.6 meq/L (21.0-32.0); Chloride 105 meq/L (98-107); Glomerular Filtration Rate Greater Than 89 mL/min (>89); Glucose,Random 246 mg/dL (74-106); Potassium 5.2 meq/L (3.5-5.1); Sodium 139 meq/L (136-145)
--- NOTE | 2018-03-08 09:51 | P.PNPOD ---
Subjective Interval history: Patient seen bedside this am. Denies any N,V,F,Ch. Patient states he feels that the redness and swelling have improved. Physical Exam Vital signs: Vital Signs 03/07/18 12:00 03/07/18 16:00 03/07/18 20:00 Temperature 96.2 F L 98.3 F 98.7 F Pulse Rate 89 83 83 Respiratory Rate 19 19 20 Blood Pressure 140/79 140/70 126/58 L Pulse Oximetry 94 L 93 L 93 L 03/08/18 00:00 Temperature 96.1 F L Pulse Rate 76 Respiratory Rate 20 Blood Pressure 121/60 Pulse Oximetry 94 L Intake & Output 03/07/18 03/08/18 03/08/18 18:59 06:59 18:59 Intake Total 1716 / 1716 758 / 758 50 / 50 Balance 1716 / 1716 758 / 758 50 / 50 Weight 114.4 kg Intake: IV 636 / 636 518 / 518 50 / 50 Zosyn 3.375 GM Premix 50 ML @ 100 / 100 50 / 50 100 mls/hr IV.SIG Q8H [facility] Rx#: [id number] Vancomycin Inj 1,800 MG In NS 536 / 536 518 / 518 Inj 500 ML @ 250 mls/hr IV.SIG Q12H [facility] Rx#:[id number] Oral 1080 / 1080 240 / 240 Other: # Voids 5 2 Date of Last Bowel Movement 03/05/18 03/05/18 # Bowel Movements 0 Narrative: Lower extremity physical exam: Vascular: Dorsalis pedis palpable, posterior tibial palpable. Capillary refill time within normal limits to digits times bilateral foot. Edema present to right foot with noted dorsal erythema which demarcates of the tarsal metatarsal joint and ecchymosis noted to digits 2 3 and 4. Neuro: Gross sensation intact to bilateral lower extremity. Pinpoint sensation decreased to right lower extremity. No hyperalgesia noted to bilateral lower extremity Dermatology: Right submetatarsal wound with serosanguineous drainage noted. Ecchymosis noted to digits 2 3 and 4. Erythema extending into tarsometatarsal joint noted dorsally improvement noted with recession of line of demarcation. Mildly decreased erythema noted. No purulent drainage upon compression. No abscess collection noted. Musculoskeletal: Rocker-bottom deformity noted to right foot. Medications and Allergies Active Medications: Active Medications Albuterol (Ventolin Hfa Inh) 2 puff INH Q4H PRN PRN Reason: SHORTNESS OF BREATH Atorvastatin Calcium (Lipitor) 80 mg PO DAILY [facility] Last Admin: 03/08/18 08:24 Dose: 80 mg Dextrose (D50w Vial) 50 ml IV.PUSH UNSCH PRN PRN Reason: PER HYPOGLYCEMIA PROTOCOL Enoxaparin Sodium (Lovenox Inj) 30 mg SQ DAILY [facility] Last Admin: 03/08/18 08:24 Dose: 30 mg Famotidine (Pepcid) 20 mg PO BID [facility] Last Admin: 03/08/18 08:25 Dose: 20 mg Fluticasone Propionate (Flonase Nasal [place]) 2 spray EACH NARE HS [facility] Last Admin: 03/08/18 00:16 Dose: Not Given Glucagon (Glucagon Inj) 1 mg OTHER PRN PRN PRN Reason: for Hypoglycemia Protocol Piperacillin/Tazobactam/Dextrose (Zosyn 3.375 Gm Premix) 50 mls @ 100 mls/hr IV.SIG Q8H [facility] Last Admin: 03/08/18 09:31 Dose: Not Given Vancomycin HCl 1,800 mg/ (Sodium Chloride) 518 mls @ 250 mls/hr IV.SIG Q12H [facility] Last Admin: 03/08/18 08:25 Dose: 250 mls/hr Insulin Aspart (Novolog Insulin Correctional Sugar Inj) 0 unit SQ ACHS [facility]; Protocol Last Admin: 03/08/18 07:49 Dose: 7 unit Lisinopril (Prinivil) 10 mg PO DAILY [facility] Last Admin: 03/08/18 08:25 Dose: 10 mg Melatonin (Melatonin) 5 mg PO HS PRN PRN Reason: INSOMNIA Last Admin: 03/07/18 20:41 Dose: 5 mg Miscellaneous Information ([facility] [place] [facility] Ordered Lab Info) 0 each OTHER ONCE ONE Stop: 03/12/18 07:46 Oxycodone/Acetaminophen (Percocet 5/325 Mg) 1 tab PO Q6H PRN PRN Reason: pain level 3-10 Last Admin: 03/07/18 20:40 Dose: 1 tab Pharmacy Profile Note (Vancomycin Consult Pharmacy) 1 each OTHER UNSCH PRN PRN Reason: Pharmacy to dose Trimethoprim/Sulfamethoxazole (Bactrim Ds) 1 tab PO Q12HR [facility] Last Admin: 03/08/18 08:24 Dose: 1 tab Vitamin D (Vitamin D3) 2,000 unit PO DAILY [facility] Last Admin: 03/08/18 08:55 Dose: 2,000 unit Allergies Allergy/AdvReac Type Severity Reaction Status Date / Time No Known Allergies Allergy Verified 03/05/18 09:21 Home Medications Medication Instructions Recorded Confirmed Type albuterol sulfate [Ventolin HFA] 1 - 2 puff INHALATION Q4-6H PRN 03/05/18 History ascorbic acid (vitamin C) [Vitamin 250 mg PO DAILY 03/05/18 03/05/18 History C] atorvastatin 80 mg PO DAILY 03/05/18 03/05/18 History beta carotene 5,000 unit PO DAILY 03/05/18 03/05/18 History cholecalciferol (vitamin D3) 2,000 unit PO DAILY 03/05/18 03/05/18 History [Vitamin D3] exenatide microspheres [Bydureon 2 mg SUBCUT Q7D 03/05/18 03/05/18 History BCise] fluticasone 2 spray INTRANASAL HS 03/05/18 03/05/18 History fluticasone-salmeterol [Advair 1 inh INHALATION BID 03/05/18 03/05/18 History Diskus] glimepiride 2 mg PO BID 03/05/18 03/05/18 History insulin degludec [Tresiba 30 unit SUBCUT HS 03/05/18 03/05/18 History FlexTouch U-100] lisinopril 10 mg PO DAILY 03/05/18 03/05/18 History metformin 1,000 mg PO DAILY 03/05/18 03/05/18 History multivitamin 1 tab PO DAILY 03/05/18 03/05/18 History omega-3 fatty acids [Fish Oil 1,000 mg PO DAILY 03/05/18 03/05/18 History Concentrate] sildenafil 25 mg PO DAILY PRN 03/05/18 03/05/18 History vit B complex 100 combo no.2 1 tab PO DAILY 03/05/18 03/05/18 History [B-100 Complex] vitamin E 200 unit PO DAILY 03/05/18 03/05/18 History Results - Labs CBC & Chem 7: 03/08/18 06:59 12/02/18 06:59 Laboratory Results - last 24 hr 03/07/18 03/07/18 03/07/18 11:52 16:34 20:20 CBC w Diff WBC RBC Hgb Hct MCV MCH MCHC RDW Plt Count MPV Neut % (Auto) Lymph % (Auto) [place] % (Auto) Eos % (Auto) Baso % (Auto) Neut # (Auto) Lymph # (Auto) [place] # (Auto) Eos # (Auto) Baso # (Auto) WBC Differential Differential Comment Sodium Potassium Chloride Carbon Dioxide Anion Gap BUN Creatinine Estimated GFR POC Glucose 172 H 181 H 232 H Random Glucose Calcium 03/08/18 03/08/18 03/08/18 06:59 06:59 07:43 CBC w Diff Auto diff final WBC 7.8 RBC 4.48 L Hgb 13.5 Hct 40.0 MCV 89.3 MCH 30.2 MCHC 33.8 RDW 12.7 Plt Count 252 MPV 7.8 Neut % (Auto) 73.8 H Lymph % (Auto) 12.6 [place] % (Auto) 8.6 H Eos % (Auto) 4.5 H Baso % (Auto) 0.5 Neut # (Auto) 5.8 Lymph # (Auto) 1.0 [place] # (Auto) 0.7 Eos # (Auto) 0.3 Baso # (Auto) 0.0 WBC Differential . Differential Comment . Sodium 139 Potassium 5.2 H Chloride 105 Carbon Dioxide 26.6 Anion Gap 7 BUN 15 Creatinine 0.81 Estimated GFR Greater than 89 POC Glucose 286 H Random Glucose 246 H Calcium 8.8 Microbiology 03/05/18 10:15 Abscess - Foot Gram Stain - Final 03/05/18 10:15 Abscess - Foot Wound Culture - Final Staphylococcus aureus Enterococcus faecalis anaerobic gram negative rods 03/05/18 10:00 Blood - Peripheral Aerobic Blood Culture - Preliminary No growth in 2 days 03/05/18 10:00 Blood - Peripheral Anaerobic Blood Culture - Preliminary No growth in 2 days 03/05/18 10:05 Blood - Peripheral Aerobic Blood Culture - Preliminary No growth in 2 days 03/05/18 10:05 Blood - Peripheral Anaerobic Blood Culture - Preliminary No growth in 2 days - Imaging Impressions Extremity Arterial Study 03/06/18 00:00 CONCLUSION: 1. Diminished VAN on the right at 0.71. 2. Mildly diminished VAN on the left at 0.9. Assessment and Plan - Plan 57-year-old male status post right foot bedside incision and drainage Patient examined and evaluated Right foot irrigated and packed with half inch plain packing Right foot dressed with 4 x 4's, Daniel and Satish Will re evaluate in the next 48 hours; will sign out care Will place vascular consult as VAN to RLE decreased to 0.71 Due to severity of infection would recommend 2 weeks of IV abx therapy Continue with irrigation and packing change to be performed 2 times daily Nonweightbearing to right foot Please dispense surgical shoe
--- NOTE | 2018-03-08 11:13 | P.PN ---
Subjective Interval history: Patient feeling ok thinks inflammation decreased seen yesterday by ID continue current antibiotics also podiatry saw patient today ,wants IV antibiotics for 2 weeks and on arterial doppler had diminished VAN rt .71 left .9 and requested vascular consult. Added med for constipation. Physical Exam Vital signs: Vital Signs 03/07/18 12:00 03/07/18 16:00 03/07/18 20:00 Temperature 96.2 F L 98.3 F 98.7 F Pulse Rate 89 83 83 Respiratory Rate 19 19 20 Blood Pressure 140/79 140/70 126/58 L Pulse Oximetry 94 L 93 L 93 L 03/08/18 00:00 03/08/18 08:00 Temperature 96.1 F L 98.6 F Pulse Rate 76 93 H Respiratory Rate 20 20 Blood Pressure 121/60 130/75 Pulse Oximetry 94 L 94 L Intake & Output 03/07/18 03/08/18 03/08/18 18:59 06:59 18:59 Intake Total 1716 / 1716 758 / 758 568 / 568 Balance 1716 / 1716 758 / 758 568 / 568 Weight 114.4 kg Intake: IV 636 / 636 518 / 518 568 / 568 Zosyn 3.375 GM Premix 50 ML @ 100 / 100 50 / 50 100 mls/hr IV.SIG Q8H [facility] Rx#: [id number] Vancomycin Inj 1,800 MG In NS 536 / 536 518 / 518 518 / 518 Inj 500 ML @ 250 mls/hr IV.SIG Q12H [facility] Rx#:[id number] Oral 1080 / 1080 240 / 240 Other: # Voids 5 2 Date of Last Bowel Movement 03/05/18 03/05/18 03/08/18 # Bowel Movements 0 Narrative: GENERAL: This is a well-nourished, well-developed patient, in no apparent distress. Obese, cooperative. Alert and oriented. SKIN: Right foot submetatarsal wound with erythema and wound dressing. No obvious discharge on wound dressing. Visible erythema is decreasing. Left medial calf also with erythematous patch which is improving as well but still with pain HEAD: Atraumatic. Normocephalic. EYES: Pupils equal round and reactive. NECK: Trachea midline. CV: Regular rate and rhythm, no murmur. RESPIRATORY: Nonlabored breathing. Clear to auscultation. No wheeze. MUSCULOSKELETAL:. Moves all extremities well. Right lower extremity as noted above. NEUROLOGICAL: Awake and alert. Normal speech. Results - Labs CBC & Chem 7: 03/08/18 06:59 03/08/18 06:59 Laboratory Results - last 24 hr 03/07/18 03/07/18 03/07/18 11:52 16:34 20:20 CBC w Diff WBC RBC Hgb Hct MCV MCH MCHC RDW Plt Count MPV Neut % (Auto) Lymph % (Auto) [place] % (Auto) Eos % (Auto) Baso % (Auto) Neut # (Auto) Lymph # (Auto) [place] # (Auto) Eos # (Auto) Baso # (Auto) WBC Differential Differential Comment Sodium Potassium Chloride Carbon Dioxide Anion Gap BUN Creatinine Estimated GFR POC Glucose 172 H 181 H 232 H Random Glucose Calcium 03/08/18 03/08/18 03/08/18 06:59 06:59 07:43 CBC w Diff Auto diff final WBC 7.8 RBC 4.48 L Hgb 13.5 Hct 40.0 MCV 89.3 MCH 30.2 MCHC 33.8 RDW 12.7 Plt Count 252 MPV 7.8 Neut % (Auto) 73.8 H Lymph % (Auto) 12.6 [place] % (Auto) 8.6 H Eos % (Auto) 4.5 H Baso % (Auto) 0.5 Neut # (Auto) 5.8 Lymph # (Auto) 1.0 [place] # (Auto) 0.7 Eos # (Auto) 0.3 Baso # (Auto) 0.0 WBC Differential . Differential Comment . Sodium 139 Potassium 5.2 H Chloride 105 Carbon Dioxide 26.6 Anion Gap 7 BUN 15 Creatinine 0.81 Estimated GFR Greater than 89 POC Glucose 286 H Random Glucose 246 H Calcium 8.8 Microbiology 03/05/18 10:00 Blood - Peripheral Aerobic Blood Culture - Preliminary No growth in 3 days 03/05/18 10:00 Blood - Peripheral Anaerobic Blood Culture - Preliminary No growth in 3 days 03/05/18 10:05 Blood - Peripheral Aerobic Blood Culture - Preliminary No growth in 3 days 03/05/18 10:05 Blood - Peripheral Anaerobic Blood Culture - Preliminary No growth in 3 days 03/05/18 10:15 Abscess - Foot Gram Stain - Final 03/05/18 10:15 Abscess - Foot Wound Culture - Final Staphylococcus aureus Enterococcus faecalis anaerobic gram negative rods Assessment and Plan - Assessment (1) Diabetic infection of right foot Code(s): E11.628 - Type 2 diabetes mellitus with other skin complications; L08.9 - Local infection of the skin and subcutaneous tissue, unspecified Status: Acute Plan: Recurrent issue, but acute flare due to recent puncture wound. Podiatry consult , IV Abx, MRI ordered per d/w ER provider. Staph growing in outpt cltx. Seems to be responding to vancomycin. I&D of right foot wound performed by podiatry on March 05. Continue current therapy. Change pain medication to Percocet.,also added based on cultures doxycline ,bactrim Patient had right foot irrigated and packed.ID saw patient continue for now current antibiotics and has on arterial doppler dimished VAN rt.71 left .9 and requested vascular consult. (2) DM type 2, uncontrolled, with retinopathy Code(s): E11.319 - Type 2 diabetes mellitus with unspecified diabetic retinopathy without macular edema; E11.65 - Type 2 diabetes mellitus with hyperglycemia Status: Chronic Plan: accucheck with SSI initiated A1c 8.4 in Jan 2018. Advised wt loss. (3) GERD (gastroesophageal reflux disease) Code(s): K21.9 - Gastro-esophageal reflux disease without esophagitis Status: Chronic Plan: provide zantac or similar med (4) HTN (hypertension) Code(s): I10 - Essential (primary) hypertension Status: Chronic Plan: continue meds as BP permits (5) Hyperlipidemia Code(s): E78.5 - Hyperlipidemia, unspecified Status: Chronic Plan: continue med - Plan ask for ID and continued podiatry care (4) HTN (hypertension) Qualifiers: Hypertension type: essential hypertension Qualified Code(s): I10 - Essential (primary) hypertension
[2018-03-09] MEDS: Piperacil/Tazo 3.375 GM Premix 50 ML IV.SIG SCH ×3 (02:02→17:37)
[2018-03-09 06:11] LABS: Baso % (Auto) 0.7 % (0.0-2.0); Eos # (Auto) 0.4 th/mm3 (0.0-0.4); Eos % (Auto) 5.5 % (0.0-4.0); Hematocrit 39.5 % (39.0-51.0); Hemoglobin 13.1 gm/dL (13.0-17.0); Lymph # (Auto) 1.3 th/mm3 (1.0-4.8); Mean Corpuscular Hemoglobin 29.7 pg (27.0-34.0); Mean Corpuscular Volume 89.8 fL (80.0-100.0); Mean Platelet Volume 7.7 fL (7.0-11.0); Mono # (Auto) 0.7 th/mm3 (0.0-0.9); Mono % (Auto) 10.6 % (0.0-8.0); Neut # (Auto) 4.5 th/mm3 (1.8-7.7); Neut % (Auto) 64.2 % (16.0-70.0); Platelet Count 248 th/mm3 (150-450); Red Cell Distribution Width 12.7 % (11.6-17.2); White Blood Count 6.9 th/mm3 (4.0-11.0)
[2018-03-09 06:39] LABS: Anion Gap 9 meq/L (5-15); Blood Urea Nitrogen 12 mg/dL (7-18); Calcium 8.5 mg/dL (8.5-10.1); Carbon Dioxide 25.4 meq/L (21.0-32.0); Chloride 104 meq/L (98-107); Glomerular Filtration Rate Greater Than 89 mL/min (>89); Glucose,Random 200 mg/dL (74-106); Potassium 4.1 meq/L (3.5-5.1); Sodium 138 meq/L (136-145)
--- NOTE | 2018-03-09 07:18 | P.PN ---
Subjective Interval history: Patient about the same ,did have labs today which are stable ,has low VAN bilateral discussed with Dr. Gaytan ,vascular wants patient transferred to main hospital as will need angiogram and possible surgery . Physical Exam Vital signs: Vital Signs 03/08/18 08:00 03/08/18 12:00 03/08/18 16:00 Temperature 98.6 F 97.9 F 99.0 F Pulse Rate 93 H 88 100 H Respiratory Rate 20 21 20 Blood Pressure 130/75 128/72 133/76 Pulse Oximetry 94 L 97 95 03/08/18 18:42 03/08/18 20:00 03/09/18 00:00 Temperature 98.0 F 96.9 F L Pulse Rate 81 81 Respiratory Rate 20 20 20 Blood Pressure 138/73 131/72 Pulse Oximetry 93 L 96 Intake & Output 03/08/18 03/09/18 03/09/18 18:59 06:59 18:59 Intake Total 1528 / 1528 858 / 858 Balance 1528 / 1528 858 / 858 Weight 115 kg Intake: IV 568 / 568 618 / 618 Zosyn 3.375 GM Premix 50 ML @ 50 / 50 100 / 100 100 mls/hr IV.SIG Q8H [facility] Rx#: [id number] Vancomycin Inj 1,800 MG In NS 518 / 518 518 / 518 Inj 500 ML @ 250 mls/hr IV.SIG Q12H [facility] Rx#:[id number] Oral 960 / 960 240 / 240 Other: # Voids 6 3 Date of Last Bowel Movement 03/08/18 # Bowel Movements 1 Narrative: GENERAL: This is a well-nourished, well-developed patient, in no apparent distress. Obese, cooperative. Alert and oriented. SKIN: Right foot submetatarsal wound with erythema and wound dressing. No obvious discharge on wound dressing. Visible erythema is decreasing. Left medial calf also with erythematous patch which is improving as well but still with pain HEAD: Atraumatic. Normocephalic. EYES: Pupils equal round and reactive. NECK: Trachea midline. CV: Regular rate and rhythm, no murmur. RESPIRATORY: Nonlabored breathing. Clear to auscultation. No wheeze. MUSCULOSKELETAL:. Moves all extremities well. Right lower extremity as noted above. NEUROLOGICAL: Awake and alert. Normal speech. Results - Labs CBC & Chem 7: 03/09/18 04:45 03/09/18 04:45 Laboratory Results - last 24 hr 03/08/18 03/08/18 03/08/18 06:59 06:59 07:43 CBC w Diff Auto diff final WBC 7.8 RBC 4.48 L Hgb 13.5 Hct 40.0 MCV 89.3 MCH 30.2 MCHC 33.8 RDW 12.7 Plt Count 252 MPV 7.8 Neut % (Auto) 73.8 H Lymph % (Auto) 12.6 [place] % (Auto) 8.6 H Eos % (Auto) 4.5 H Baso % (Auto) 0.5 Neut # (Auto) 5.8 Lymph # (Auto) 1.0 [place] # (Auto) 0.7 Eos # (Auto) 0.3 Baso # (Auto) 0.0 WBC Differential . Differential Comment . Sodium 139 Potassium 5.2 H Chloride 105 Carbon Dioxide 26.6 Anion Gap 7 BUN 15 Creatinine 0.81 Estimated GFR Greater than 89 POC Glucose 286 H Random Glucose 246 H Calcium 8.8 03/08/18 03/08/18 03/09/18 11:23 21:10 04:45 CBC w Diff WBC RBC Hgb Hct MCV MCH MCHC RDW Plt Count MPV Neut % (Auto) Lymph % (Auto) [place] % (Auto) Eos % (Auto) Baso % (Auto) Neut # (Auto) Lymph # (Auto) [place] # (Auto) Eos # (Auto) Baso # (Auto) WBC Differential Differential Comment Sodium 138 Potassium 4.1 D Chloride 104 Carbon Dioxide 25.4 Anion Gap 9 BUN 12 Creatinine 0.68 Estimated GFR Greater than 89 POC Glucose 166 H 253 H Random Glucose 200 H Calcium 8.5 03/09/18 04:45 CBC w Diff Auto diff final WBC 6.9 RBC 4.40 L Hgb 13.1 Hct 39.5 MCV 89.8 MCH 29.7 MCHC 33.0 RDW 12.7 Plt Count 248 MPV 7.7 Neut % (Auto) 64.2 Lymph % (Auto) 19.0 [place] % (Auto) 10.6 H Eos % (Auto) 5.5 H Baso % (Auto) 0.7 Neut # (Auto) 4.5 Lymph # (Auto) 1.3 [place] # (Auto) 0.7 Eos # (Auto) 0.4 Baso # (Auto) 0.0 WBC Differential . Differential Comment . Sodium Potassium Chloride Carbon Dioxide Anion Gap BUN Creatinine Estimated GFR POC Glucose Random Glucose Calcium Microbiology 03/05/18 10:00 Blood - Peripheral Aerobic Blood Culture - Preliminary No growth in 3 days 03/05/18 10:00 Blood - Peripheral Anaerobic Blood Culture - Preliminary No growth in 3 days 03/05/18 10:05 Blood - Peripheral Aerobic Blood Culture - Preliminary No growth in 3 days 03/05/18 10:05 Blood - Peripheral Anaerobic Blood Culture - Preliminary No growth in 3 days 03/05/18 10:15 Abscess - Foot Gram Stain - Final 03/05/18 10:15 Abscess - Foot Wound Culture - Final Staphylococcus aureus Enterococcus faecalis anaerobic gram negative rods Assessment and Plan - Assessment (1) Diabetic infection of right foot Code(s): E11.628 - Type 2 diabetes mellitus with other skin complications; L08.9 - Local infection of the skin and subcutaneous tissue, unspecified Status: Acute Plan: Recurrent issue, but acute flare due to recent puncture wound. Podiatry consult , IV Abx, MRI ordered per d/w ER provider. Staph growing in outpt cltx. Seems to be responding to vancomycin. I&D of right foot wound performed by podiatry on March 05. Continue current therapy. Change pain medication to Percocet.,also added based on cultures doxycline ,bactrim Patient had right foot irrigated and packed.ID saw patient continue for now current antibiotics and has on arterial doppler dimished VAN rt.71 left .9 and requested vascular consult.,discussed with vascular [facility] and may need vascular procedure. (2) DM type 2, uncontrolled, with retinopathy Code(s): E11.319 - Type 2 diabetes mellitus with unspecified diabetic retinopathy without macular edema; E11.65 - Type 2 diabetes mellitus with hyperglycemia Status: Chronic Plan: accucheck with SSI initiated A1c 8.4 in Jan 2018. Advised wt loss. (3) GERD (gastroesophageal reflux disease) Code(s): K21.9 - Gastro-esophageal reflux disease without esophagitis Status: Chronic Plan: provide zantac or similar med (4) HTN (hypertension) Code(s): I10 - Essential (primary) hypertension Status: Chronic Plan: continue meds as BP permits (5) Hyperlipidemia Code(s): E78.5 - Hyperlipidemia, unspecified Status: Chronic Plan: continue med - Plan ID and podiatry following patient ,will transfer as per vascular (4) HTN (hypertension) Qualifiers: Hypertension type: essential hypertension Qualified Code(s): I10 - Essential (primary) hypertension
[2018-03-09] MEDS: Lisinopril 10 MG Tablet PO SCH (09:29)
[2018-03-09] MEDS: Famotidine 20 MG Tablet PO SCH ×2 (09:30→22:45)
[2018-03-09] MEDS: Enoxaparin Inj 30 MG/0.3 ML Syringe SQ SCH (09:31)
[2018-03-09] MEDS: Insulin NovoLOG Aspart Correctional Sugar Inj SQ SCH ×4 (09:32→22:56)
[2018-03-09] MEDS: Vancomycin Inj 1,800 MG in Sodium Chlor 0.9% Inj 500 ML IV.SIG SCH ×3 (11:02→22:47)
--- NOTE | 2018-03-09 15:24 | P.CONVS ---
History of Present Illness Service: Vascular surgery Consult date: 03/09/18 Primary Care Provider: Juhi Weller MD Chief Complaint: foot wound History of Present Illness: 49-year-old male with a past medical history of diabetes, Charcot foot. He presents with an abscess of the right foot and he underwent successful incision and drainage by the podiatry team. The vascular surgery was consulted to evaluate for peripheral vascular disease. The patient denies any wrist pain. He reports 100yard right lower extremity claudication. [facility] - History History Provided By: Patient - Medical History Medical History: Medical History (Last Reviewed 03/07/18 @ 20:07 by Rosette Ruffin MD) Hyperlipidemia (Chronic) GERD (gastroesophageal reflux disease) (Chronic) DM type 2, uncontrolled, with retinopathy (Chronic) HTN (hypertension) (Chronic) Charcot ankle Diabetes Elevated cholesterol History of traumatic rupture of spleen Kidney stone Peripheral neuropathy - Surgical History Surgical History: Surgical History (Last Reviewed 03/07/18 @ 20:07 by Rosette Ruffin MD) History of foot surgery History of nasal surgery History of surgical procedure on eye proper using laser History of tonsillectomy and adenoidectomy Hx of sinus surgery - Family History Family History: Family History (Last Reviewed 03/07/18 @ 20:07 by Rosette Ruffin MD) Other Diabetes Hypertension - Tobacco History Second Hand Smoke Exposure: No Tobacco Use In Past 30 Days: No Smoking Status: Former smoker Years Smoked: 18 Number of Pack Years (if former smoker): 18 Smoking End Date: 1997 - Alcohol History How Often Do You Have a Drink Containing Alcohol: Never - Substance Use History Substance History: No History of Abuse - Travel History Recent Travel in the [place] Within the Last 8 Weeks: No Recent Travel Out of the Country Within the Last 8 Weeks: No - Immunization History Tetanus Immunization: <5 Years Tetanus Immunization Year if Known: 2017 Hx Influenza Vaccine This Season: No Medications and Allergies Active Medications: Active Medications Al Hydroxide/Mg Hydroxide (Milk Of [place] a Liq) 30 ml PO DAILY PRN PRN Reason: CONSTIPATION Albuterol (Ventolin Hfa Inh) 2 puff INH Q4H PRN PRN Reason: SHORTNESS OF BREATH Atorvastatin Calcium (Lipitor) 80 mg PO DAILY [facility] Last Admin: 03/09/18 09:30 Dose: 80 mg Dextrose (D50w Vial) 50 ml IV.PUSH UNSCH PRN PRN Reason: PER HYPOGLYCEMIA PROTOCOL Enoxaparin Sodium (Lovenox Inj) 30 mg SQ DAILY [facility] Last Admin: 03/09/18 09:31 Dose: 30 mg Famotidine (Pepcid) 20 mg PO BID [facility] Last Admin: 03/09/18 09:30 Dose: Not Given Fluticasone Propionate (Flonase Nasal [place]) 2 spray EACH NARE HS [facility] Last Admin: 03/08/18 21:03 Dose: Not Given Glucagon (Glucagon Inj) 1 mg OTHER PRN PRN PRN Reason: for Hypoglycemia Protocol Piperacillin/Tazobactam/Dextrose (Zosyn 3.375 Gm Premix) 50 mls @ 100 mls/hr IV.SIG Q8H [facility] Last Infusion: 03/09/18 10:59 Dose: Infused Vancomycin HCl 1,800 mg/ (Sodium Chloride) 518 mls @ 250 mls/hr IV.SIG Q12H [facility] Last Infusion: 03/09/18 13:19 Dose: Infused Insulin Aspart (Novolog Insulin [place] Sugar Inj) 0 unit SQ ACHS [facility]; Protocol Last Admin: 03/09/18 13:18 Dose: Not Given Lactulose (Lactulose Liq) 30 ml PO DAILY PRN PRN Reason: CONSTIPATION Last Admin: 03/08/18 21:26 Dose: 30 ml Lisinopril (Prinivil) 10 mg PO DAILY [facility] Last Admin: 03/09/18 09:29 Dose: 10 mg Melatonin (Melatonin) 5 mg PO HS PRN PRN Reason: INSOMNIA Last Admin: 03/07/18 20:41 Dose: 5 mg Miscellaneous Information ([facility] Ordered Lab Info) 0 each OTHER ONCE ONE Stop: 03/12/18 09:46 Oxycodone/Acetaminophen (Percocet 5/325 Mg) 1 tab PO Q6H PRN PRN Reason: pain level 3-10 Last Admin: 03/08/18 23:29 Dose: 1 tab Pharmacy Profile Note (Vancomycin Consult Pharmacy) 1 each OTHER UNSCH PRN PRN Reason: Pharmacy to dose Trimethoprim/Sulfamethoxazole (Bactrim Ds) 1 tab PO Q12HR [facility] Last Admin: 03/09/18 09:30 Dose: 1 tab Vitamin D (Vitamin D3) 2,000 unit PO DAILY [facility] Last Admin: 03/09/18 09:30 Dose: 2,000 unit Allergies Allergy/AdvReac Type Severity Reaction Status Date / Time No Known Allergies Allergy Verified 03/05/18 09:21 Home Medications Medication Instructions Recorded Confirmed Type albuterol sulfate [Ventolin HFA] 1 - 2 puff INHALATION Q4-6H PRN 03/05/18 History ascorbic acid (vitamin C) [Vitamin 250 mg PO DAILY 03/05/18 03/05/18 History C] atorvastatin 80 mg PO DAILY 03/05/18 03/05/18 History beta carotene 5,000 unit PO DAILY 03/05/18 03/05/18 History cholecalciferol (vitamin D3) 2,000 unit PO DAILY 03/05/18 03/05/18 History [Vitamin D3] exenatide microspheres [Bydureon 2 mg SUBCUT Q7D 03/05/18 03/05/18 History BCise] fluticasone 2 spray INTRANASAL HS 03/05/18 03/05/18 History fluticasone-salmeterol [Advair 1 inh INHALATION BID 03/05/18 03/05/18 History Diskus] glimepiride 2 mg PO BID 03/05/18 03/05/18 History insulin degludec [Tresiba 30 unit SUBCUT HS 03/05/18 03/05/18 History FlexTouch U-100] lisinopril 10 mg PO DAILY 03/05/18 03/05/18 History metformin 1,000 mg PO DAILY 03/05/18 03/05/18 History multivitamin 1 tab PO DAILY 03/05/18 03/05/18 History omega-3 fatty acids [Fish Oil 1,000 mg PO DAILY 03/05/18 03/05/18 History Concentrate] sildenafil 25 mg PO DAILY PRN 03/05/18 03/05/18 History vit B complex 100 combo no.2 1 tab PO DAILY 03/05/18 03/05/18 History [B-100 Complex] vitamin E 200 unit PO DAILY 03/05/18 03/05/18 History Physical Exam Vital Signs / I&O: Vital Signs 03/08/18 16:00 03/08/18 18:42 03/08/18 20:00 Temperature 99.0 F 98.0 F Pulse Rate 100 H 81 Respiratory Rate 20 20 20 Blood Pressure 133/76 138/73 Pulse Oximetry 95 93 L 03/09/18 00:00 03/09/18 08:00 03/09/18 08:15 Temperature 96.9 F L 96.7 F L Pulse Rate 81 78 Respiratory Rate 20 20 Blood Pressure 131/72 139/72 Pulse Oximetry 96 95 96 03/09/18 12:00 Temperature 97 F L Pulse Rate 86 Respiratory Rate 20 Blood Pressure 146/73 H Pulse Oximetry 96 Intake & Output 03/08/18 03/09/18 03/09/18 18:59 06:59 18:59 Intake Total 1528 / 1528 858 / 858 568 / 568 Balance 1528 / 1528 858 / 858 568 / 568 Weight 115 kg Intake: IV 568 / 568 618 / 618 568 / 568 Zosyn 3.375 GM Premix 50 ML @ 50 / 50 100 / 100 50 / 50 100 mls/hr IV.SIG Q8H [facility] Rx#: [id number] Vancomycin Inj 1,800 MG In NS 518 / 518 518 / 518 518 / 518 Inj 500 ML @ 250 mls/hr IV.SIG Q12H [facility] Rx#:[id number] Oral 960 / 960 240 / 240 0 / 0 Other: # Voids 6 3 2 Date of Last Bowel Movement 03/08/18 03/08/18 # Bowel Movements 1 Neuro: Alert awake oriented x3 HEENT: Normocephalic atraumatic Neck: Supple Heart: S1-S2 Lungs: No wheezes Abdomen: Soft nontender nondistended Vascular: Monophasic right dorsalis pedis, posterior tibial signal. Right foot wound with some necrotic changes to the edges. Laboratory Results - last 24 hr 03/08/18 03/09/18 03/09/18 21:10 04:45 04:45 CBC w Diff Auto diff final WBC 6.9 RBC 4.40 L Hgb 13.1 Hct 39.5 MCV 89.8 MCH 29.7 MCHC 33.0 RDW 12.7 Plt Count 248 MPV 7.7 Neut % (Auto) 64.2 Lymph % (Auto) 19.0 [place] % (Auto) 10.6 H Eos % (Auto) 5.5 H Baso % (Auto) 0.7 Neut # (Auto) 4.5 Lymph # (Auto) 1.3 [place] # (Auto) 0.7 Eos # (Auto) 0.4 Baso # (Auto) 0.0 WBC Differential . Differential Comment . Sodium 138 Potassium 4.1 D Chloride 104 Carbon Dioxide 25.4 Anion Gap 9 BUN 12 Creatinine 0.68 Estimated GFR Greater than 89 POC Glucose 253 H Random Glucose 200 H Calcium 8.5 03/09/18 03/09/18 08:40 11:40 CBC w Diff WBC RBC Hgb Hct MCV MCH MCHC RDW Plt Count MPV Neut % (Auto) Lymph % (Auto) [place] % (Auto) Eos % (Auto) Baso % (Auto) Neut # (Auto) Lymph # (Auto) [place] # (Auto) Eos # (Auto) Baso # (Auto) WBC Differential Differential Comment Sodium Potassium Chloride Carbon Dioxide Anion Gap BUN Creatinine Estimated GFR POC Glucose 219 H 241 H Random Glucose Calcium Microbiology 03/05/18 10:00 Aerobic Blood Culture - Preliminary Blood - Peripheral No growth in 4 days Anaerobic Blood Culture - Preliminary No growth in 4 days 03/05/18 10:05 Aerobic Blood Culture - Preliminary Blood - Peripheral No growth in 4 days Anaerobic Blood Culture - Preliminary No growth in 4 days Assessment and Plan - Plan Right lower extremity critical limb ischemia with tissue loss (nonhealing right foot wound) 1. We will plan diagnostic angiography and possible intervention in a.m. 2. Continue with best medical therapy. Patient is currently on statin, will add aspirin. Thank you for allowing us to participate in this patient care. If you have any questions, do not hesitate to call my cell phone. Bolivar Boyce MD [facility] [phone]
--- NOTE | 2018-03-09 20:06 | P.PNADD ---
Addendum to Inpatient Note Additional information: seen around 1100 today [facility] full note to follow
--- NOTE | 2018-03-09 23:48 | P.PNID ---
Subjective Remarks: pt was seen earlier today no new c/o transferred to main hospital for vasc w/u afebrile tolerates abx Antibiotics: zosyn vanco Allergies/Adverse Reactions: Allergies No Known Allergies Allergy (Verified 03/05/18 09:21) Objective Vital Signs 03/09/18 00:00 03/09/18 08:00 03/09/18 08:15 Temperature 96.9 F L 96.7 F L Pulse Rate 81 78 Respiratory Rate 20 20 Blood Pressure 131/72 139/72 Pulse Oximetry 96 95 96 03/09/18 12:00 03/09/18 16:00 03/09/18 20:00 Temperature 97 F L 97.8 F 98.1 F Pulse Rate 86 86 82 Respiratory Rate 20 18 17 Blood Pressure 146/73 H 146/73 H 129/70 Pulse Oximetry 96 94 L 93 L Intake & Output 03/09/18 03/09/18 03/10/18 06:59 18:59 06:59 Intake Total 858 / 858 568 / 568 50 / 50 Balance 858 / 858 568 / 568 50 / 50 Weight 115 kg Intake: IV 618 / 618 568 / 568 50 / 50 Zosyn 3.375 GM Premix 50 ML @ 100 / 100 50 / 50 50 / 50 100 mls/hr IV.SIG Q8H MALACHI Rx#: [id number] Vancomycin Inj 1,800 MG In NS 518 / 518 518 / 518 Inj 500 ML @ 250 mls/hr IV.SIG Q12H MALACHI Rx#:[id number] Oral 240 / 240 0 / 0 Other: # Voids 3 2 Date of Last Bowel Movement 03/08/18 03/05/18 10:00 Blood - Peripheral Aerobic Blood Culture - Preliminary No growth in 4 days 03/05/18 10:00 Blood - Peripheral Anaerobic Blood Culture - Preliminary No growth in 4 days 03/05/18 10:05 Blood - Peripheral Aerobic Blood Culture - Preliminary No growth in 4 days 03/05/18 10:05 Blood - Peripheral Anaerobic Blood Culture - Preliminary No growth in 4 days 03/05/18 10:15 Abscess - Foot Gram Stain - Final 03/05/18 10:15 Abscess - Foot Wound Culture - Final Staphylococcus aureus Enterococcus faecalis anaerobic gram negative rods Lab - Hematology Results 03/08/18 03/09/18 06:59 04:45 CBC w Diff Auto diff final Auto diff final WBC 7.8 6.9 RBC 4.48 L 4.40 L Hgb 13.5 13.1 Hct 40.0 39.5 MCV 89.3 89.8 MCH 30.2 29.7 MCHC 33.8 33.0 RDW 12.7 12.7 Plt Count 252 248 MPV 7.8 7.7 Neut % (Auto) 73.8 H 64.2 Lymph % (Auto) 12.6 19.0 Monroe % (Auto) 8.6 H 10.6 H Eos % (Auto) 4.5 H 5.5 H Baso % (Auto) 0.5 0.7 Neut # (Auto) 5.8 4.5 Lymph # (Auto) 1.0 1.3 Monroe # (Auto) 0.7 0.7 Eos # (Auto) 0.3 0.4 Baso # (Auto) 0.0 0.0 WBC Differential . . Differential Comment . . Lab - Chemistry Results 03/08/18 03/08/18 03/08/18 06:59 07:43 11:23 Sodium 139 Potassium 5.2 H Chloride 105 Carbon Dioxide 26.6 Anion Gap 7 BUN 15 Creatinine 0.81 Estimated GFR Greater than 89 POC Glucose 286 H 166 H Random Glucose 246 H Calcium 8.8 03/08/18 03/09/18 03/09/18 21:10 04:45 08:40 Sodium 138 Potassium 4.1 D Chloride 104 Carbon Dioxide 25.4 Anion Gap 9 BUN 12 Creatinine 0.68 Estimated GFR Greater than 89 POC Glucose 253 H 219 H Random Glucose 200 H Calcium 8.5 03/09/18 03/09/18 11:40 17:35 Sodium Potassium Chloride Carbon Dioxide Anion Gap BUN Creatinine Estimated GFR POC Glucose 241 H 206 H Random Glucose Calcium Imaging: ITS Impressions Foot X-Ray 03/05/18 09:35 CONCLUSION: 1. There is gas within the subcutaneous tissues which overlie the proximal phalanx of the second digit. No retained foreign body or destructive changes are seen within the proximal phalanx of the second digit. 2. Previous attempted fusion with failure of the hardware and advanced degenerative changes. Foot MRI 03/05/18 11:27 CONCLUSION: Small presumed phlegmonous collection in the plantar soft tissues of the right forefoot as described Extremity Arterial Study 03/06/18 00:00 CONCLUSION: 1. Diminished VAN on the right at 0.71. 2. Mildly diminished VAN on the left at 0.9. Physical Exam: GENERAL: NAD SKIN: Warm and dry. no rash HEAD: Atraumatic. Normocephalic. EYES: Pupils equal and round. No scleral icterus. No injection or drainage. ENT: No nasal bleeding or discharge. Mucous membranes pink and moist. NECK: Trachea midline. No JVD. CARDIOVASCULAR: Regular rate and rhythm. RESPIRATORY: No accessory muscle use. Clear to auscultation. Breath sounds equal bilaterally. GASTROINTESTINAL: Abdomen soft, non-tender, nondistended. Hepatic and splenic margins not palpable. MUSCULOSKELETAL: Extremities without clubbing, cyanosis, R foot with decreasing edema, erythema overall improved Plantar wound packed, serosang dc, no odor NEUROLOGICAL: Awake and alert. Non focal PSYCHIATRIC: Appropriate mood and affect; Assessment and Plan - Plan R foot DFI, mixed aerobic- anaerobic sp steppinmg on the nail MIld PAD Diminished VAN on the right at 0.71. Mildly diminished VAN on the left at 0.9. chnge abx to Unasyn monitor clinically, might need further debridements if worse, poor improvement pending vasc assessment dw pt @ b/s
[2018-03-10] MEDS ORDERED: Ampicillin/Sulbactam Inj 3 GM in Sodium Chloride 0.9% Inj 100 ML IV.SIG SCH (01:00)
[2018-03-10] MEDS: Ampicillin/Sulbactam Inj 3 GM in Sodium Chloride 0.9% Inj 100 ML IV.SIG SCH ×3 (08:42→21:29)
[2018-03-10] MEDS: Lisinopril 10 MG Tablet PO SCH (08:43)
[2018-03-10] MEDS: Enoxaparin Inj 30 MG/0.3 ML Syringe SQ SCH (08:44)
[2018-03-10] MEDS: Famotidine 20 MG Tablet PO SCH ×2 (08:44→21:22)
[2018-03-10] MEDS: Insulin NovoLOG Aspart Correctional Sugar Inj SQ SCH ×4 (08:44→21:34)
--- NOTE | 2018-03-10 08:52 | P.PNIM ---
Subjective Interval history: Pt underwent RLE vascular intervention this afternoon. He reports that his pain is currently controlled Afebrile Pt tolerating oral intake. Physical Exam Vital signs: Last Vital Signs Temp 97.8 F 03/09/18 23:50 Pulse 81 03/09/18 23:50 Resp 17 03/10/18 02:32 BP 142/73 H 03/09/18 23:50 Pulse Ox 96 03/09/18 23:59 Narrative: General: NAD, AAOx3 Chest: CTA Cardiac: Regular Abd: +BS, soft ND/NT Ext: Right foot plantar wound with some necrotic tissue and malodorous drainage noted. Erythema on the dorsal aspect of the foot is improved compared and receding past the drawn line on his right foot. Results Labs CBC & Chem 7: 03/11/18 05:19 03/09/18 04:45 Imaging Foot X-Ray 03/05/18 09:35 CONCLUSION: 1. There is gas within the subcutaneous tissues which overlie the proximal phalanx of the second digit. No retained foreign body or destructive changes are seen within the proximal phalanx of the second digit. 2. Previous attempted fusion with failure of the hardware and advanced degenerative changes. Foot MRI 03/05/18 11:27 CONCLUSION: Small presumed phlegmonous collection in the plantar soft tissues of the right forefoot as described Extremity Arterial Study 03/06/18 00:00 CONCLUSION: 1. Diminished VAN on the right at 0.71. 2. Mildly diminished VAN on the left at 0.9. Assessment and Plan Assessment (1) Diabetic infection of right foot: Code(s): E11.628 - Type 2 diabetes mellitus with other skin complications; L08.9 - Local infection of the skin and subcutaneous tissue, unspecified Status: Acute (2) Hyperlipidemia: Code(s): E78.5 - Hyperlipidemia, unspecified Status: Chronic (3) GERD (gastroesophageal reflux disease): Code(s): K21.9 - Gastro-esophageal reflux disease without esophagitis Status: Chronic (4) DM type 2, uncontrolled, with retinopathy: Code(s): E11.319 - Type 2 diabetes mellitus with unspecified diabetic retinopathy without macular edema; E11.65 - Type 2 diabetes mellitus with hyperglycemia Status: Chronic (5) HTN (hypertension): Code(s): I10 - Essential (primary) hypertension Status: Chronic Plan Right foot wound Hx of Charcot foot s/p surgical repair - Pt is a 57 y/o male with poorly controlled diabetes, history of right foot Charcot s/p surgical intervention with hardware in 2013, morbid obesity, sleep apnea and diabetic neuropathy. - Patient states he stepped on a nail on Wednesday 02/28. He developed a low- grade fever and was given oral antibiotics in urgent care on 03/02. Patient states he noticed that the infection was getting worse he went back to urgent care and they referred him to the ED. Patient was taking Augmentin prior to this admission. Pt was admitted to [facility] on 03/05/18 - Foot X-Ray (03/05/18) 1. There is gas within the subcutaneous tissues which overlie the proximal phalanx of the second digit. No retained foreign body or destructive changes are seen within the proximal phalanx of the second digit. 2. Previous attempted fusion with failure of the hardware and advanced degenerative changes. - Foot MRI (03/05/18): - Small presumed phlegmonous collection in the plantar soft tissues of the right forefoot as described - Podiatry/ID/Vascular surgery are following. - Podiatry performed a bedside I&D of right foot abscess on 03/05 - Wound Care recommendations per podiatry: - Right foot irrigated and packed with half inch plain packing - Right foot dressed with 4 x 4's, Daniel and Satish - Continue with irrigation and packing change to be performed 2 times daily - Nonweightbearing to right foot - Surgical shoe - Cultures grew out Staph aureus, Enterococcus faecalis, and anaerobic gram negative rods. - Pt has been on Vanc and Zosyn (03/05 - 03/09) - Extremity Arterial Study (03/06/18): 1. Diminished VAN on the right at 0.71. 2. Mildly diminished VAN on the left at 0.9. - Pt was transferred to [facility] on 03/09/18 for Vascular surgery evaluation with angiogram. - Abx changed to Unasyn on 03/09/18 - Pt underwent RLE angiogram (03/10/18) with Dr. 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 There was two-vessel runoff to the right foot via the right peroneal artery, right anterior tibial artery. These vessels noted to be severely diseased at multiple segments. The peroneal artery was treated using atherectomy and angioplasty of the right peroneal artery followed by balloon angioplasty of the right tibial artery with successful results. Completion radiograph shows no flow-limiting dissection and less than 30% residual stenosis. - Pt had bedside dressing change with podiatry today and pt still has some necrotic tissue and per discussion with Dr. Reed, pt may require surgical intervention later this week (possibly ) for further debridement and possible wound vac placement. Diabetes Mellitus - NovoLog SSI - Add back home dose of Amaryl 2mg BID - Hold Metformin due to recent contrast - Accu checks COPD ROYCE - Duonebs PRN - Cont. CPAP when sleeping - DVT prophylaxis with Lovenox Attending Attestation The exam, history, and the medical decision-making described in the above note were completed with the assistance of the mid-level provider. I reviewed and agree with the findings presented. I attest that I had a [id number] encounter with the patient on the same day, and personally performed and documented my assessment and findings in the medical record. Patient examined. Assessment and plan formulated with Rose Wyatt PA-C. I agree with the above. Case d/w Dr. Reed (03/10) Case d/w Dr. Boyce (03/10) Progress Note: Quality VTE Deep Vein Thrombosis/Pulmonary Embolism Present on Admission: No _ (1) Hyperlipidemia Qualifiers: Hyperlipidemia type: (2) GERD (gastroesophageal reflux disease) Qualifiers: Esophagitis presence: (3) HTN (hypertension) Qualifiers: Hypertension type: essential hypertension Qualified Code(s): I10 - Essential (primary) hypertension
[2018-03-10] MEDS ORDERED: Heparin/NS PF Inj 1,000 ML ONE (11:10)
[2018-03-10] MEDS ORDERED: fentaNYL Citrate Inj 100 MCG/2 ML Ampul ONE (11:10)
[2018-03-10] MEDS ORDERED: Lidocaine 2% Inj 50 ML Vial ONE (11:14)
[2018-03-10] MEDS ORDERED: Heparin 10,000 UNITS/10 ML Vial (for IV use) ONE (11:46)
--- NOTE | 2018-03-10 12:38 | CATHPROC ---
[place] HIS Report Study Information Study Number Admission Scheduled Start Study Start [id number] Mar 05 2018 12:17PM 03/10/2018 Mar 10 2018 11:04AM [place] [facility] Cardiac Pacer/ICD Admit Source Facility Department Emergency department [facility] - Paramedical Aide Physician and Clinical Staff Initial [place] [employer] Professor Rose Reed,RN Recorder Richard Duque,RT(R) Ramírez Leavitt,RT(R) Procedures Performed Procedure Location (Site) Vessel Name FIRE SAFETY INSPECTOR Peroneal (right) Popliteal FIRE SAFETY INSPECTOR Tib, Ant. (right) Popliteal Wire insertion Fem Art (left) Femoral Art Wire insertion Fem Art (right) Femoral Art Equipment Time Communications And Signals Supervisor Description Size Mfg Part Number Used/Scraped PERCLOSE, PRO GLIDE CLOSER 12:15 [employer] FR 6 [id number] *[id number] Used DEVICE [id number] 11:21 [employer] WIRE, SUPERCORE 190CM Used *[id number] 11:22 [employer] WIRE, SUPERCORE 190CM Used *[id number] 11:21 ANGIO-DYNAMICS OMNI FLUSH 65CM CATHETER FR 4 Used *[id number] DBP- CARDIOVASCULAR CATHETER, STEALTH SOLID 11:52 [id number] Used SYSTEMS INC. 1.25MM 30 GRIT *[id number] CARDIOVASCULAR LUBRICANT, VIPERSLIDE VPR-SLD2 11:51 Used SYSTEMS INC. ATHERCTOMY *[id number] CARDIOVASCULAR LUBRICANT, VIPERSLIDE VPR-SLD2 11:51 Used SYSTEMS INC. ATHERCTOMY *[id number] CARDIOVASCULAR LUBRICANT, VIPERSLIDE VPR-SLD2 11:51 Used SYSTEMS INC. ATHERCTOMY *[id number] CARDIOVASCULAR VPR-GW-14 11:52 WIRE, FIRM (VIPER) 335 Used SYSTEMS INC. *[id number] INTRODUCER SET, 11:21 COOK INC. FR 5 [id number] *[id number] Used MICROPUNCTURE STIFF CATHETER, CXI SUPPORT 2.6FR 11:48 COOK/PIERCE .018 [id number] Used 0.18 ANGLED WIRE, GUIDE APPROACH HYDRO [id number] 11:49 COOK/PIERCE 300CM Used ST *[id number] ENDOVASCULAR BALLOON, NANOCROSS 3.0 X 12:00 3.0 X 100 [id number] Used COMPANY 100MM 150CM ENDOVASCULAR BALLOON, NANOCROSS 3.0 X [id number] 12:06 3 X 210 Used COMPANY 210MM 150CM *[id number] 11:21 [employer] IND[employer]RIES PACK, CCL CUSTOM * Used *[id number] PROBE COVER, STERILE [id number] 11:21 [employer] * Used ULTRASOUND W/ GEL *[id number] 11:21 NAMIC MANIFOLD, 4 PORT * Used *[id number] 11:37 NAMIC TUBING, HIGH PRESSURE 48" 48" Used *[id number] 11:21 NYCOMED OMNIPAQUE, 300 MG, 150ML 150ML [id number] Used 11:21 NYCOMED OMNIPAQUE, 300 MG, 50ML 50ML [id number] Used [id number] 11:21 TERUMO MEDICAL SHEATH, FR5 TERUMO (10CM) FR 5 Used *[id number] SHEATH, FR6 PINNACLE 11:46 TERUMO MEDICAL/PIERCE FR 6 [id number] Used DESTINATION 65CM WIRE, ANGLED GLIDE .035 [id number] 11:21 TERUMO MEDICAL/PIERCE 260CM Used 260CM *[id number] Equipment Model, Serial, Lot Number and Expiration Data Description Model Number Serial Number Lot Number Expiration Date CATHETER, CXI SUPPORT 2.6FR [id number] 01-22-2021 0.18 ANGLED CATHETER, STEALTH SOLID [id number] 04-06-2019 1.25MM 30 GRIT PERCLOSE, PRO GLIDE CLOSER [id number] 06-05-2019 DEVICE WIRE, FIRM (VIPER) 335 [id number] 07-06-2019 WIRE, GUIDE APPROACH HYDRO [id number] 09-24-2020 ST Labs Hgb (g/dl) Hct (%) WBC (l/cumm) Platelets (thousands) 11.60-17.00 35.00-51.00 4.00-11.00 150.00-450.00 13.1 39.5 6.9 248 Glucose (mg/dl) BUN (mg/dl) Creatinine (mg/dl) BUN:Creatinine (1:x) 74.00-106.00 7.00-18.00 0.50-1.30 10.00-20.00 200 12 0.6 20 Na (meq/l) K (meq/l) 136.00-145.00 3.50-5.10 138 4.1 CPK-MB (ng/ML) 0.50-3.60 Not Drawn Medication Medication Total Dose (Bolus/Oral) Medication Total Dosage/Unit 1% XYLOCAINE 10 mL FENTANYL 50 mcg HEPARIN 5000 units VERSED 2 mg Medications (Bolus/Oral) Medication Time Given Dosage/Unit Administered By Reason 1% XYLOCAINE 03/10/2018 11:32:03 AM 10 mL Bolivar Boyce 10 mL 1% XYLOCAINE given in lab by Bolivar Boyce in Left Groin via Subcutaneous. Ordered by Bolivar Boyce. VERSED 03/10/2018 11:34:24 AM 2 mg Rose Reed 2 mg VERSED given in lab by Rose Reed RN via Peripheral IV. Ordered by Bolivar Boyce. FENTANYL 03/10/2018 11:35:33 AM 50 mcg Rose Reed 50 mcg FENTANYL given in lab by Rose Reed RN via Peripheral IV. Ordered by Bolivar Boyce. HEPARIN 03/10/2018 11:47:55 AM 5000 units Rose Reed 5000 units HEPARIN given in lab by Rose Reed RN via Peripheral IV. Ordered by Bolivar Boyce. Initial Case Assessment Cardiovascular HR Rhythm NIBP Chest Pain 77 sr 150/79 0 Edema Present Skin color Skin None Normal Warm Dry Circulatory - Right Pulses Dorsalis Pedis Posterior Tibial Femoral 0 0 1 Scale (0,1,2,3,4,d) Circulatory - Left Pulses Dorsalis Pedis Posterior Tibial Femoral d d 1 Scale (0,1,2,3,4,d) Neurological State Oriented to time-place- Alert Moves all extremities person Respiration - General Respiration Rate SpO2 (%) O2 (lpm) (B/min) 18 96 0 Chronological Log Time Study Chronological Log 11:03:41 Patient arrived via Bed. 11:03:42 Patient Name, D.O.B, / Armband Verified By R.N. 11:03:43 Consent signed by the physician and the patient and verified by the Paramedical Aide staff. 11:03:44 Pre-op and post- op instructions given; patient acknowledges understanding of instructions . 11:04:00 Verbal Stimulation=2 Physical Stimulation=2 Airway=2 Respiration=2 TOTAL=8. (0=absent, 1=l imited, 2=present) 11:04:10 Presedation assessment performed by Paramedical Aide RN. Vitals capture started with the following parameters, Patient=Adult, Interval=5 min, Initial P vgynqtz=007 mmHg, 11:15:11 Deflation Rate=5 mmHg, Cuff placed on Right Arm 11:16:28 HR=77 bpm, QHIZ=502/79 mmhg, SpO2=95.0 %, Resp=13 B/min, Sanders=2 11:17:06 Patient has been NPO for More than 6Hrs. 11:17:08 Skin Breakdown-wound present right foot. 11:19:34 A # 20 IV was noted in the Forearm (right). Grade = 0 11:19:44 History and physical on the chart or being dictated. Assessment: Initial Case, HR=77 BPM, Rhythm=sr, VWKV=652/79 mmhg, Chest Pain=0, Edema=None, Col or=Normal, Skin = Warm, Dry Right Pulses: Js Ped=0, Post Tib=0, Femoral=1 11:19:46 Left Pulses: Js Ped=d, Post Tib=d, Femoral=1 Neurological: State=Alert, Ox3, VARELA Respiration: Resp=18 B/min, SpO2=96 %, O2=0 lpm 11:20:57 HR=79 bpm, BDVW=248/74 mmhg, SpO2=96.0 %, Resp=19 B/min, Sanders=2 11:21:39 Bilateral groins prepped with 2% chlorhexidine, and draped after a 3 minute waiting time. 11:23:24 Reference ECG taken 11:25:02 Pressure channel 2 zeroed. 11:25:23 MD paged 11:25:56 HR=78 bpm, MKBL=951/73 mmhg, SpO2=94.0 %, Resp=13 B/min, Sanders=2 11:30:53 HR=81 bpm, QOUP=070/89 mmhg, SpO2=96.0 %, Resp=15 B/min, Sanders=2 Time Out. Correct patient, correct procedure, correct physician, labs, allergies, and equipment verified with radiographer cardiac catheterization 11:31:47 team present. Fire risk assesment completed (see hard stop sheet for coding). Time Out Conc urred by MD and individual staff in procedure. 11:31:49 Case Start 11:31:50 Verbal Stimulation=2 Physical Stimulation=2 Airway=2 Respiration=2 TOTAL=8. (0=absent, 1=li mited, 2=present) 11:32:03 10 mL 1% XYLOCAINE given in lab by Bolivar Boyce in Left Groin via Subcutaneous. Ordered by Bolivar Boyce. 11:32:46 Access site was Left Femoral Artery. 11:33:03 A WIRE, SUPERCORE 190CM was inserted via Fem Art (left). 11:33:33 A SHEATH, FR5 TERUMO (10CM) FR 5 was advanced into the Fem Art (left) using the Percutaneou s technique. 11:34:24 2 mg VERSED given in lab by Rose Reed, KAILEE via Peripheral IV. Ordered by Wayne Boyce 11:34:47 A WIRE, SUPERCORE 190CM was inserted via Fem Art (left). A OMNI FLUSH 65CM CATHETER FR 4 was advanced over a wire. OMNIPAQUE, 300 MG, 150ML 150ML was us ed for 11:35:12 injections. 11:35:33 50 mcg FENTANYL given in lab by Rose Reed, KAILEE via Peripheral IV. Ordered by Stefano Boyce. 11:35:58 HR=78 bpm, YZNK=653/75 mmhg, SpO2=97.0 %, Resp=12 B/min, Sanders=2 11:37:48 Wire removed 11:38:14 Through a OMNI FLUSH 65CM CATHETER FR 4, The Abd Aorta (A3) was injected with 10 cc's of co ntrast. 11:38:36 Wire removed 11:38:54 A WIRE, ANGLED GLIDE .035 260CM 260CM was inserted via Fem Art (right). 11:39:10 Wire removed 11:39:15 Manual injections down right leg through 4 tuvaluan omniflush catheter 11:40:57 HR=78 bpm, ITNB=332/71 mmhg, SpO2=96.0 %, Resp=7 B/min, Sanders=2 11:45:52 HR=76 bpm, WZNL=552/72 mmhg, SpO2=97.0 %, Resp=11 B/min, Sanders=2 11:47:47 A WIRE, SUPERCORE 190CM was inserted via Fem Art (left). 11:47:55 5000 units HEPARIN given in lab by Rose Reed, RN via Peripheral IV. Ordered by Bolivar Boyce. A SHEATH, FR6 PINNACLE DESTINATION 65CM FR 6 was exchanged in the Fem Art (left). This was nece ssary in order 11:48:28 to accomodate a larger catheter. A CATHETER, CXI SUPPORT 2.6FR 0.18 ANGLED .018 was advanced over a wire. OMNIPAQUE, 300 MG, 150 ML 150ML 11:49:37 was used for injections. 11:49:44 A WIRE, GUIDE APPROACH HYDRO ST 300CM was inserted via Fem Art (left). 11:50:53 HR=79 bpm, SYHK=456/71 mmhg, SpO2=97.0 %, Resp=11 B/min, Sanders=2 11:51:46 The previous wire was exchanged for a WIRE, FIRM ([employer] barER) 335. 11:53:11 Catheter was removed 11:56:00 HR=84 bpm, GSIX=813/49 mmhg, SpO2=96.0 %, Resp=9 B/min, Sanders=2 11:56:34 An CATHETER, STEALTH SOLID 1.25MM 30 GRIT catheter was inserted into the Peroneal (right). 11:56:54 CSI in use in right peroneal. 11:59:12 Catheter was removed w/o difficulty A BALLOON, NANOCROSS 3.0 X 100MM 150CM 3.0 X 100 was inserted over WIRE, FIRM (VIPER) 335 via t he Peroneal 11:59:57 (right). In the Peroneal (right) a BALLOON, NANOCROSS 3.0 X 100MM 150CM 3.0 X 100 was inflated to 12 marcial s for 15 12:00:11 seconds. 12:00:55 HR=75 bpm, KDZF=027/77 mmhg, SpO2=98.0 %, Resp=10 B/min, Sanders=2 In the Peroneal (right) a BALLOON, NANOCROSS 3.0 X 100MM 150CM 3.0 X 100 was inflated to 12 marcial s for 55 12:02:35 seconds. 12:03:49 Balloon Removed. A CATHETER, CXI SUPPORT 2.6FR 0.18 ANGLED .018 was advanced over a wire. OMNIPAQUE, 300 MG, 150 ML 150ML 12:04:02 was used for injections. 12:05:56 HR=75 bpm, HBKG=615/74 mmhg, SpO2=93.0 %, Resp=13 B/min, Sanders=2 12:06:39 The previous wire was exchanged for a WIRE, GUIDE APPROACH HYDRO ST 300CM. 12:10:42 The previous wire was exchanged for a WIRE, FIRM (VIPER) 335. 12:10:59 HR=75 bpm, PYPX=610/69 mmhg, SpO2=96.0 %, Resp=13 B/min, Sanders=2 12:11:17 Catheter was removed w/o difficulty A BALLOON, NANOCROSS 3.0 X 210MM 150CM 3 X 210 was inserted over WIRE, FIRM (VIPER) 335 via the Tib, Ant. 12:11:37 (right). 12:12:25 In the Tib, Ant. (right) a BALLOON, NANOCROSS 3.0 X 210MM 150CM 3 X 210 was inflated to 8 a tms for 40 seconds. 12:14:17 Balloon Removed. 12:15:18 Wire removed 12:15:56 HR=76 bpm, NCUY=111/77 mmhg, SpO2=96.0 %, Resp=13 B/min, Sanders=2 12:16:23 An injection in the Fem Art (left) was made through the SHEATH, FR6 PINNACLE DESTINATION 65 CM FR 6. 12:17:46 PERCLOSE, PRO GLIDE CLOSER DEVICE FR 6 placement in the Fem Art (left) 12:19:11 Case End (Physician broke scrub) 12:20:59 HR=76 bpm, NHAP=655/78 mmhg, SpO2=95.0 %, Resp=14 B/min, Sanders=2 12:21:23 Sterile dressing applied to site 12:21:25 No case complications noted. 12:21:27 Cine recording checked. 12:21:44 Bedside Report will be given. End Study - Contrast Media Used In Study Contrast Total Opened (mL) Total Used (mL) Total Wasted (mL) Omnipaque 300 35 35 0 End Study - Maximum Contrast Load Max Contrast Load (mL) 958.3 End Study - Radiation Exposure Fluoro Time (minutes) 6.7 End Study - Patient Disposition Complications Transferred To No Telemetry Bed
--- NOTE | 2018-03-10 13:26 | P.OP ---
Preoperative Diagnosis: Critical limb ischemia with tissue loss Postoperative Diagnosis: Critical limb ischemia with tissue loss Date of procedure: 03/10/18 Procedure: 1. Ultrasound-guided access of the left common femoral artery 2. AIF angiogram 3. Right lower extremity third order angiogram 4. Atherectomy of the right peroneal artery 5. Balloon angioplasty of the right peroneal artery 6. Balloon angioplasty of the right anterior tibial artery 7. Perclose of the left common femoral artery 8. Radiological supervision of the rotation 9. Conscious sedation times 1 hour Surgeon: Bolivar Boyce MD Operation and Findings: Findings 1. The infrarenal abdominal aorta, bilateral common iliac artery, bilateral external iliac artery were noted to be patent with no evidence of significant stenosis. 2. The right common femoral artery, right superficial femoral artery, right profunda femoral artery, right popliteal artery were noted to be patent with no evidence of significant stenosis. 3. The right posterior tibial artery was noted to be occluded. 4. There was two-vessel runoff to the right foot via the right peroneal artery , right anterior tibial artery. These vessels noted to be severely diseased at multiple segments. The peroneal artery was treated using atherectomy and angioplasty of the right peroneal artery followed by balloon edge plasty of the right tibial artery with successful results. Completion radiograph shows no flow-limiting dissection and less than 30% residual stenosis. Description of the procedure The patient was taken to the operating room, laid supine on the OR table. After adequate sedation the patient was prepped and draped in the standard sterile fashion. Timeout was called with all members in the OR in agreement. 1 % lidocaine was injected in the left groin. Using ultrasonic guided access a 5 Serbian sheath was placed in the left common femoral artery. A catheter was placed in the infrarenal abdominal aorta and an AIF endograft was performed. A catheter was placed in the right popliteal artery and a right lower extremity third order angiogram was performed. Patient was heparinized. A 6 Serbian destination sheath was placed with the tip in the right superficial femoral artery. I was able to cross the proximal right peroneal artery occlusion and the vessel was treated using atherectomy followed by balloon angioplasty via a 3 mm balloon. Following this a balloon angioplasty of the right anterior tibial artery was performed using a tapered 2.5-3 mm balloon. Completion radiograph was performed. At this point all catheter and sheath were removed hemostasis was achieved by applying a Perclose device to the left common femoral artery.the patient tolerated the procedure well and was taken to recovery unit in stable condition. Conclusion 49-year-old male with a past medical history of diabetes status post incision and drainage of a right foot abscess. He presents with critical limb ischemia and poor healing of his right foot wound. Diagnostic angiography shows severe tibial disease that was treated using endovascular techniques with successful results. The patient will be continued on antiplatelet therapy and statin therapy indefinitely.
[2018-03-10] MEDS ORDERED: Iohexol 350 MG/ML 50 ML Vial (for Cath Lab) IVCONTRAST ONE (13:56)
--- NOTE | 2018-03-10 16:28 | P.PNPOD ---
Subjective Interval history: Status post right lower extremity vascular intervention seen bedside with moderate pain noted Physical Exam Vital signs: Vital Signs 03/09/18 20:00 03/09/18 23:50 03/09/18 23:59 Temperature 98.1 F 97.8 F Pulse Rate 82 81 Respiratory Rate 17 17 Blood Pressure 129/70 142/73 H Pulse Oximetry 93 L 96 96 03/10/18 02:32 03/10/18 08:00 03/10/18 12:36 Temperature 97.9 F Pulse Rate 83 Respiratory Rate 17 16 Blood Pressure 140/75 Pulse Oximetry 99 96 Intake & Output 03/09/18 03/10/18 03/10/18 18:59 06:59 18:59 Intake Total 568 / 568 1368 / 1368 Balance 568 / 568 1368 / 1368 Weight 115 kg Intake: IV 568 / 568 668 / 668 Unasyn Inj 3 GM In NS Inj 100 100 / 100 ML @ 200 mls/hr IV.SIG Q6H [facility] Rx#:[id number] Zosyn 3.375 GM Premix 50 ML @ 50 / 50 50 / 50 100 mls/hr IV.SIG Q8H [facility] Rx#: [id number] Vancomycin Inj 1,800 MG In NS 518 / 518 518 / 518 Inj 500 ML @ 250 mls/hr IV.SIG Q12H [facility] Rx#:[id number] Oral 0 / 0 700 / 700 Other: # Voids 2 3 Date of Last Bowel Movement 03/08/18 03/08/18 - Constitutional no acute distress - Neurological Alert and oriented x3 - Routine Extremities Exam Comments: Right lower extremity plantar necrotic incision and drainage site 1 cm x 6 mm probing deep to fascia possible tendon with mild malodor fat exposed with mild necrotic tissue redness extends to the plantar aspect of the foot and dorsal aspect of the foot involving the second digit. Cellulitis up to the calf is now diminished. The foot is warm sensation decreased to light touch limited range of motion of hindfoot Medications and Allergies Active Medications: Active Medications Al Hydroxide/Mg Hydroxide (Milk Of Magnesia Liq) 30 ml PO DAILY PRN PRN Reason: CONSTIPATION Albuterol (Ventolin Hfa Inh) 2 puff INH Q4H PRN PRN Reason: SHORTNESS OF BREATH Atorvastatin Calcium (Lipitor) 80 mg PO DAILY [facility] Last Admin: 03/10/18 08:43 Dose: 80 mg Dextrose (D50w Vial) 50 ml IV.PUSH UNSCH PRN PRN Reason: PER HYPOGLYCEMIA PROTOCOL Enoxaparin Sodium (Lovenox Inj) 30 mg SQ DAILY [facility] Last Admin: 03/10/18 08:44 Dose: Not Given Famotidine (Pepcid) 20 mg PO BID [facility] Last Admin: 03/10/18 08:44 Dose: 20 mg Fluticasone Propionate (Flonase Nasal [place]) 2 spray EACH NARE HS [facility] Last Admin: 03/09/18 22:58 Dose: Not Given Glucagon (Glucagon Inj) 1 mg OTHER PRN PRN PRN Reason: for Hypoglycemia Protocol Ampicillin Sodium/Sulbactam (Sodium 3 gm/ Sodium Chloride) 100 mls @ 200 mls/ hr IV.SIG Q6H [facility] Last Admin: 03/10/18 08:42 Dose: 200 mls/hr Insulin Aspart (Novolog Insulin Correctional Sugar Inj) 0 unit SQ ACHS [facility]; Protocol Last Admin: 03/10/18 08:44 Dose: 1 unit Lactulose (Lactulose Liq) 30 ml PO DAILY PRN PRN Reason: CONSTIPATION Last Admin: 03/08/18 21:26 Dose: 30 ml Lisinopril (Prinivil) 10 mg PO DAILY [facility] Last Admin: 03/10/18 08:43 Dose: 10 mg Melatonin (Melatonin) 5 mg PO HS PRN PRN Reason: INSOMNIA Last Admin: 03/07/18 20:41 Dose: 5 mg Miscellaneous Information ([facility]dered Lab Info) 0 each OTHER ONCE ONE Stop: 03/12/18 09:46 Oxycodone/Acetaminophen (Percocet 5/325 Mg) 1 tab PO Q6H PRN PRN Reason: pain level 3-10 Last Admin: 03/10/18 08:54 Dose: 1 tab Sodium Chloride (Ns Flush) 2 ml IV.FLUSH BID [facility] Sodium Chloride (Ns Flush) 2 ml IV.FLUSH PRN PRN PRN Reason: FLUSH AFTER USING IV ACCESS Vitamin D (Vitamin D3) 2,000 unit PO DAILY [facility] Last Admin: 03/10/18 08:43 Dose: 2,000 unit Allergies Allergy/AdvReac Type Severity Reaction Status Date / Time No Known Allergies Allergy Verified 03/05/18 09:21 Home Medications Medication Instructions Recorded Confirmed Type albuterol sulfate [Ventolin HFA] 1 - 2 puff INHALATION Q4-6H PRN 03/05/18 History ascorbic acid (vitamin C) [Vitamin 250 mg PO DAILY 03/05/18 03/05/18 History C] atorvastatin 80 mg PO DAILY 03/05/18 03/05/18 History beta carotene 5,000 unit PO DAILY 03/05/18 03/05/18 History cholecalciferol (vitamin D3) 2,000 unit PO DAILY 03/05/18 03/05/18 History [Vitamin D3] exenatide microspheres [Bydureon 2 mg SUBCUT Q7D 03/05/18 03/05/18 History BCise] fluticasone 2 spray INTRANASAL HS 03/05/18 03/05/18 History fluticasone-salmeterol [Advair 1 inh INHALATION BID 03/05/18 03/05/18 History Diskus] glimepiride 2 mg PO BID 03/05/18 03/05/18 History insulin degludec [Tresiba 30 unit SUBCUT HS 03/05/18 03/05/18 History FlexTouch U-100] lisinopril 10 mg PO DAILY 03/05/18 03/05/18 History metformin 1,000 mg PO DAILY 03/05/18 03/05/18 History multivitamin 1 tab PO DAILY 03/05/18 03/05/18 History omega-3 fatty acids [Fish Oil 1,000 mg PO DAILY 03/05/18 03/05/18 History Concentrate] sildenafil 25 mg PO DAILY PRN 03/05/18 03/05/18 History vit B complex 100 combo no.2 1 tab PO DAILY 03/05/18 03/05/18 History [B-100 Complex] vitamin E 200 unit PO DAILY 03/05/18 03/05/18 History Results - Labs CBC & Chem 7: 03/09/18 04:45 03/09/18 04:45 Laboratory Results - last 24 hr 03/09/18 03/10/18 03/10/18 17:35 08:40 12:50 POC Glucose 206 H 189 H 212 H Microbiology 03/05/18 10:00 Blood - Peripheral Aerobic Blood Culture - Final No growth in 5 days 03/05/18 10:00 Blood - Peripheral Anaerobic Blood Culture - Final No growth in 5 days 03/05/18 10:05 Blood - Peripheral Aerobic Blood Culture - Final No growth in 5 days 03/05/18 10:05 Blood - Peripheral Anaerobic Blood Culture - Final No growth in 5 days Assessment and Plan - Assessment (1) Diabetic infection of right foot Code(s): E11.628 - Type 2 diabetes mellitus with other skin complications; L08.9 - Local infection of the skin and subcutaneous tissue, unspecified Status: Acute - Plan Appears the patient had somewhat of a successful right lower extremity vascular intervention reviewed case with vascular, posterior tibial artery is completely occluded however two-vessel runoff to foot was achieved with intervention. The foot appears to be with some necrotic tissue which would benefit from possible wide excision with wound VAC application. However PT Angiosome appears to be struggling. Patient is somewhat reluctant to have any more debridement. Will reevaluate tomorrow for possible need for surgery repeat incision and drainage with wound VAC application. Appreciate infectious disease management.
[2018-03-10] MEDS: Glimepiride 2 MG Tablet PO SCH (17:00)
--- NOTE | 2018-03-10 18:08 | P.PNID ---
Subjective Remarks: s/p angiogram, Atherectomy of the right peroneal artery, Balloon angioplasty of the right peroneal artery, Balloon angioplasty of the right anterior tibial artery no fever Antibiotics: unasyn Allergies/Adverse Reactions: Allergies No Known Allergies Allergy (Verified 03/05/18 09:21) Objective Vital Signs 03/09/18 20:00 03/09/18 23:50 03/09/18 23:59 Temperature 98.1 F 97.8 F Pulse Rate 82 81 Respiratory Rate 17 17 Blood Pressure 129/70 142/73 H Pulse Oximetry 93 L 96 96 03/10/18 02:32 03/10/18 08:00 03/10/18 12:36 Temperature 97.9 F Pulse Rate 83 Respiratory Rate 17 16 Blood Pressure 140/75 Pulse Oximetry 99 96 Intake & Output 03/09/18 03/10/18 03/10/18 18:59 06:59 18:59 Intake Total 568 / 568 1368 / 1368 Balance 568 / 568 1368 / 1368 Weight 115 kg Intake: IV 568 / 568 668 / 668 Unasyn Inj 3 GM In NS Inj 100 100 / 100 ML @ 200 mls/hr IV.SIG Q6H [facility] Rx#:[id number] Zosyn 3.375 GM Premix 50 ML @ 50 / 50 50 / 50 100 mls/hr IV.SIG Q8H [facility] Rx#: [id number] Vancomycin Inj 1,800 MG In NS 518 / 518 518 / 518 Inj 500 ML @ 250 mls/hr IV.SIG Q12H [facility] Rx#:[id number] Oral 0 / 0 700 / 700 Other: # Voids 2 3 Date of Last Bowel Movement 03/08/18 03/08/18 03/05/18 10:00 Blood - Peripheral Aerobic Blood Culture - Final No growth in 5 days 03/05/18 10:00 Blood - Peripheral Anaerobic Blood Culture - Final No growth in 5 days 03/05/18 10:05 Blood - Peripheral Aerobic Blood Culture - Final No growth in 5 days 03/05/18 10:05 Blood - Peripheral Anaerobic Blood Culture - Final No growth in 5 days 03/05/18 10:15 Abscess - Foot Gram Stain - Final 03/05/18 10:15 Abscess - Foot Wound Culture - Final Staphylococcus aureus Enterococcus faecalis anaerobic gram negative rods Lab - Hematology Results 03/09/18 04:45 CBC w Diff Auto diff final WBC 6.9 RBC 4.40 L Hgb 13.1 Hct 39.5 MCV 89.8 MCH 29.7 MCHC 33.0 RDW 12.7 Plt Count 248 MPV 7.7 Neut % (Auto) 64.2 Lymph % (Auto) 19.0 [place] % (Auto) 10.6 H Eos % (Auto) 5.5 H Baso % (Auto) 0.7 Neut # (Auto) 4.5 Lymph # (Auto) 1.3 [place] # (Auto) 0.7 Eos # (Auto) 0.4 Baso # (Auto) 0.0 WBC Differential . Differential Comment . Lab - Chemistry Results 03/08/18 03/09/18 03/09/18 21:10 04:45 08:40 Sodium 138 Potassium 4.1 D Chloride 104 Carbon Dioxide 25.4 Anion Gap 9 BUN 12 Creatinine 0.68 Estimated GFR Greater than 89 POC Glucose 253 H 219 H Random Glucose 200 H Calcium 8.5 03/09/18 03/09/18 03/10/18 11:40 17:35 08:40 Sodium Potassium Chloride Carbon Dioxide Anion Gap BUN Creatinine Estimated GFR POC Glucose 241 H 206 H 189 H Random Glucose Calcium 03/10/18 12:50 Sodium Potassium Chloride Carbon Dioxide Anion Gap BUN Creatinine Estimated GFR POC Glucose 212 H Random Glucose Calcium Imaging: ITS Impressions Foot X-Ray 03/05/18 09:35 CONCLUSION: 1. There is gas within the subcutaneous tissues which overlie the proximal phalanx of the second digit. No retained foreign body or destructive changes are seen within the proximal phalanx of the second digit. 2. Previous attempted fusion with failure of the hardware and advanced degenerative changes. Foot MRI 03/05/18 11:27 CONCLUSION: Small presumed phlegmonous collection in the plantar soft tissues of the right forefoot as described Extremity Arterial Study 03/06/18 00:00 CONCLUSION: 1. Diminished VAN on the right at 0.71. 2. Mildly diminished VAN on the left at 0.9. Physical Exam: GENERAL: NAD SKIN: Warm and dry. no rash CARDIOVASCULAR: Regular rate and rhythm. RESPIRATORY: No accessory muscle use. Clear to auscultation. Breath sounds equal bilaterally. GASTROINTESTINAL: Abdomen soft, non-tender, nondistended. Hepatic and splenic margins not palpable. MUSCULOSKELETAL: Extremities without clubbing, cyanosis, R foot with dressing in place NEUROLOGICAL: Awake and alert. Non focal PSYCHIATRIC: Appropriate mood and affect; Assessment and Plan - Plan R foot DFI, mixed aerobic- anaerobic sp steppinmg on the nail Agree with podiatry regardign more surgery and VAC Severe PVD on angiogram sp Atherectomy of the right peroneal artery, Balloon angioplasty of the right peroneal artery, Balloon angioplasty of the right anterior tibial artery cont Unasyn x 6 weeks, other options, Unasyn x 4 weeks merrill momin case mngr
[2018-03-11] MEDS: Ampicillin/Sulbactam Inj 3 GM in Sodium Chloride 0.9% Inj 100 ML IV.SIG SCH ×4 (02:50→20:42)
[2018-03-11 06:18] LABS: Baso % (Auto) 0.5 % (0.0-2.0); Eos # (Auto) 0.3 th/mm3 (0.0-0.4); Eos % (Auto) 4.6 % (0.0-4.0); Hematocrit 40.9 % (39.0-51.0); Hemoglobin 14.1 gm/dL (13.0-17.0); Lymph # (Auto) 1.1 th/mm3 (1.0-4.8); Lymph % (Auto) 15.7 % (9.0-44.0); Mean Corpuscular HGB Conc 34.4 % (32.0-36.0); Mean Corpuscular Volume 89.9 fL (80.0-100.0); Mean Platelet Volume 7.2 fL (7.0-11.0); Mono # (Auto) 0.7 th/mm3 (0.0-0.9); Mono % (Auto) 9.9 % (0.0-8.0); Neut # (Auto) 4.9 th/mm3 (1.8-7.7); Neut % (Auto) 69.3 % (16.0-70.0); Platelet Count 252 th/mm3 (150-450); Red Blood Count 4.55 mil/mm3 (4.50-5.90); Red Cell Distribution Width 13.6 % (11.6-17.2); White Blood Count 7.1 th/mm3 (4.0-11.0)
[2018-03-11 06:47] LABS: Carbon Dioxide 31.9 meq/L (21.0-32.0); Potassium 4.9 meq/L (3.5-5.1)
--- NOTE | 2018-03-11 08:56 | P.PNVS ---
Subjective Subjective/Hospital Course: Doing well, pain controlled Objective Vital Signs / I&O: Vital Signs 03/10/18 12:36 03/10/18 16:00 03/10/18 20:00 Temperature 97.8 F 99.0 F Pulse Rate 84 83 Respiratory Rate 16 20 Blood Pressure 137/61 143/72 H Pulse Oximetry 96 95 96 03/10/18 23:31 03/11/18 00:00 03/11/18 04:00 Temperature 97.4 F L 97.6 F Pulse Rate 76 78 Respiratory Rate 18 18 19 Blood Pressure 120/62 121/63 Pulse Oximetry 94 L 96 Intake & Output 03/10/18 03/11/18 03/11/18 18:59 06:59 18:59 Intake Total 100 / 100 1000 / 1000 Balance 100 / 100 1000 / 1000 Weight 115.2 kg Intake: IV 100 / 100 300 / 300 Unasyn Inj 3 GM In NS Inj 100 100 / 100 300 / 300 ML @ 200 mls/hr IV.SIG Q6H [facility] Rx#:[id number] Oral 700 / 700 Other: # Voids 2 Date of Last Bowel Movement 03/08/18 Physical Exam: Left groin CDI +2 palpable right DP pulse Laboratory Results - last 24 hr 03/09/18 03/10/18 03/10/18 22:55 08:40 12:50 WBC RBC Hgb Hct MCV MCH MCHC RDW Plt Count MPV Neut % (Auto) Lymph % (Auto) [place] % (Auto) Eos % (Auto) Baso % (Auto) Neut # (Auto) Lymph # (Auto) [place] # (Auto) Eos # (Auto) Baso # (Auto) WBC Differential Differential Comment Sodium Potassium Chloride Carbon Dioxide Anion Gap BUN Creatinine Estimated GFR POC Glucose 192 H 189 H 212 H Random Glucose Calcium 03/10/18 03/11/18 03/11/18 21:24 05:19 05:19 WBC 7.1 RBC 4.55 Hgb 14.1 Hct 40.9 MCV 89.9 MCH 31.0 MCHC 34.4 RDW 13.6 Plt Count 252 MPV 7.2 Neut % (Auto) 69.3 Lymph % (Auto) 15.7 [place] % (Auto) 9.9 H Eos % (Auto) 4.6 H Baso % (Auto) 0.5 Neut # (Auto) 4.9 Lymph # (Auto) 1.1 [place] # (Auto) 0.7 Eos # (Auto) 0.3 Baso # (Auto) 0.0 WBC Differential . Differential Comment Auto diff final Sodium 137 Potassium 4.9 Chloride 101 Carbon Dioxide 31.9 Anion Gap 4 L BUN 10 Creatinine 0.89 Estimated GFR 88 L POC Glucose 290 H Random Glucose 216 H Calcium 9.0 03/11/18 07:51 WBC RBC Hgb Hct MCV MCH MCHC RDW Plt Count MPV Neut % (Auto) Lymph % (Auto) [place] % (Auto) Eos % (Auto) Baso % (Auto) Neut # (Auto) Lymph # (Auto) [place] # (Auto) Eos # (Auto) Baso # (Auto) WBC Differential Differential Comment Sodium Potassium Chloride Carbon Dioxide Anion Gap BUN Creatinine Estimated GFR POC Glucose 224 H Random Glucose Calcium Microbiology 03/05/18 10:00 Aerobic Blood Culture - Final Blood - Peripheral No growth in 5 days Anaerobic Blood Culture - Final No growth in 5 days 03/05/18 10:05 Aerobic Blood Culture - Final Blood - Peripheral No growth in 5 days Anaerobic Blood Culture - Final No growth in 5 days Assessment and Plan - Plan Right lower extremity critical limb ischemia with tissue loss (nonhealing right foot wound) s/p RLE angiogram and STUDIO TECHNICIAN VIDEO OPERATOR of right AT, peroneal POD #1 patient has great flow to the right foot via the right AT, PA (+2 palpable DP pulse) He has an occluded R PT artery and 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 This may compromise his wound healing He is cleared from vascular surgery standpoint for any necessary procedure needed by the podiatry team The patient has been educated regrading his medical condition and he understands. He is cleared for DC from vascular surgery standpoint and I will schedule his FU appointment Thank you for allowing me to participate in this patient care. Bolivar Boyce MD [facility] [phone]
[2018-03-11] MEDS: Famotidine 20 MG Tablet PO SCH ×2 (10:31→20:43)
[2018-03-11] MEDS: Insulin NovoLOG Aspart Correctional Sugar Inj SQ SCH ×4 (10:32→20:52)
[2018-03-11] MEDS: Glimepiride 2 MG Tablet PO SCH ×2 (10:32→17:51)
[2018-03-11] MEDS: Enoxaparin Inj 30 MG/0.3 ML Syringe SQ SCH (10:33)
[2018-03-11] MEDS: Lisinopril 10 MG Tablet PO SCH (10:33)
--- NOTE | 2018-03-11 16:59 | P.PNPOD ---
Subjective Interval history: Patient improving slowly, pain has lessened, he understands the need for return to OR for debridement and continued IV antibiotics. Physical Exam Vital signs: Vital Signs 03/10/18 20:00 03/10/18 23:31 03/11/18 00:00 Temperature 99.0 F 97.4 F L Pulse Rate 83 76 Respiratory Rate 20 18 18 Blood Pressure 143/72 H 120/62 Pulse Oximetry 96 94 L 03/11/18 04:00 03/11/18 08:00 03/11/18 12:00 Temperature 97.6 F 97.6 F 97.6 F Pulse Rate 78 81 86 Respiratory Rate 19 17 19 Blood Pressure 121/63 143/66 H 155/75 H Pulse Oximetry 96 94 L 96 Intake & Output 03/10/18 03/11/18 03/11/18 18:59 06:59 18:59 Intake Total 100 / 100 1000 / 1000 200 / 200 Balance 100 / 100 1000 / 1000 200 / 200 Weight 115.2 kg Intake: IV 100 / 100 300 / 300 200 / 200 Unasyn Inj 3 GM In NS Inj 100 100 / 100 300 / 300 200 / 200 ML @ 200 mls/hr IV.SIG Q6H [facility] Rx#:[id number] Oral 700 / 700 Other: # Voids 2 Date of Last Bowel Movement 03/08/18 - Constitutional no acute distress - Neurological Alert and oriented x3 - Routine Extremities Exam Comments: Right lower extremity plantar purple necrotic incision and drainage site 1 - 2cm x 6 mm probing deep to fascia possible tendon with decreased malodor fat exposed with redness extends to the plantar aspect of the foot and dorsal aspect of the foot involving the second digit. Cellulitis up to the calf is now diminished. The foot is warm sensation decreased to light touch limited range of motion of hindfoot Medications and Allergies Active Medications: Active Medications Al Hydroxide/Mg Hydroxide (Milk Of Magnesia Liq) 30 ml PO DAILY PRN PRN Reason: CONSTIPATION Albuterol (Ventolin Hfa Inh) 2 puff INH Q4H PRN PRN Reason: SHORTNESS OF BREATH Atorvastatin Calcium (Lipitor) 80 mg PO DAILY [facility] Last Admin: 03/11/18 10:31 Dose: 80 mg Dextrose (D50w Vial) 50 ml IV.PUSH UNSCH PRN PRN Reason: PER HYPOGLYCEMIA PROTOCOL Enoxaparin Sodium (Lovenox Inj) 30 mg SQ DAILY [facility] Last Admin: 12/05/18 10:33 Dose: 30 mg Famotidine (Pepcid) 20 mg PO BID [facility] Last Admin: 03/11/18 10:31 Dose: 20 mg Fluticasone Propionate (Flonase Nasal Cameron) 2 spray EACH NARE HS [facility] Last Admin: 03/10/18 21:29 Dose: Not Given Glimepiride (Amaryl) 2 mg PO BIDAC [facility] Last Admin: 03/11/18 10:32 Dose: 2 mg Glucagon (Glucagon Inj) 1 mg OTHER PRN PRN PRN Reason: for Hypoglycemia Protocol Ampicillin Sodium/Sulbactam (Sodium 3 gm/ Sodium Chloride) 100 mls @ 200 mls/ hr IV.SIG Q6H [facility] Last Infusion: 03/11/18 16:54 Dose: Infused Insulin Aspart (Novolog Insulin Correctional Sugar Inj) 0 unit SQ ACHS [facility]; Protocol Last Admin: 03/11/18 12:48 Dose: 4 unit Lactulose (Lactulose Liq) 30 ml PO DAILY PRN PRN Reason: CONSTIPATION Last Admin: 03/08/18 21:26 Dose: 30 ml Lisinopril (Prinivil) 10 mg PO DAILY [facility] Last Admin: 03/11/18 10:33 Dose: 10 mg Melatonin (Melatonin) 5 mg PO HS PRN PRN Reason: INSOMNIA Last Admin: 03/07/18 20:41 Dose: 5 mg Miscellaneous Information ([facility] Ordered Lab Info) 0 each OTHER ONCE ONE Stop: 03/12/18 09:46 Oxycodone/Acetaminophen (Percocet 5/325 Mg) 1 tab PO Q6H PRN PRN Reason: pain level 3-10 Last Admin: 03/11/18 12:49 Dose: 1 tab Sodium Chloride (Ns Flush) 2 ml IV.FLUSH BID [facility] Last Admin: 03/11/18 10:33 Dose: 2 ml Sodium Chloride (Ns Flush) 2 ml IV.FLUSH PRN PRN PRN Reason: FLUSH AFTER USING IV ACCESS Vitamin D (Vitamin D3) 2,000 unit PO DAILY [facility] Last Admin: 03/11/18 10:31 Dose: 2,000 unit Allergies Allergy/AdvReac Type Severity Reaction Status Date / Time No Known Allergies Allergy Verified 03/05/18 09:21 Home Medications Medication Instructions Recorded Confirmed Type albuterol sulfate [Ventolin HFA] 1 - 2 puff INHALATION Q4-6H PRN 03/05/18 History ascorbic acid (vitamin C) [Vitamin 250 mg PO DAILY 03/05/18 03/05/18 History C] atorvastatin 80 mg PO DAILY 03/05/18 03/05/18 History beta carotene 5,000 unit PO DAILY 03/05/18 03/05/18 History cholecalciferol (vitamin D3) 2,000 unit PO DAILY 03/05/18 03/05/18 History [Vitamin D3] exenatide microspheres [Bydureon 2 mg SUBCUT Q7D 03/05/18 03/05/18 History BCise] fluticasone 2 spray INTRANASAL HS 03/05/18 03/05/18 History fluticasone-salmeterol [Advair 1 inh INHALATION BID 03/05/18 03/05/18 History Diskus] glimepiride 2 mg PO BID 03/05/18 03/05/18 History insulin degludec [Tresiba 30 unit SUBCUT HS 03/05/18 03/05/18 History FlexTouch U-100] lisinopril 10 mg PO DAILY 03/05/18 03/05/18 History metformin 1,000 mg PO DAILY 03/05/18 03/05/18 History multivitamin 1 tab PO DAILY 03/05/18 03/05/18 History omega-3 fatty acids [Fish Oil 1,000 mg PO DAILY 03/05/18 03/05/18 History Concentrate] sildenafil 25 mg PO DAILY PRN 03/05/18 03/05/18 History vit B complex 100 combo no.2 1 tab PO DAILY 03/05/18 03/05/18 History [B-100 Complex] vitamin E 200 unit PO DAILY 03/05/18 03/05/18 History Results - Labs CBC & Chem 7: 03/11/18 05:19 03/11/18 05:19 Laboratory Results - last 24 hr 03/09/18 03/10/18 03/11/18 22:55 21:24 05:19 WBC RBC Hgb Hct MCV MCH MCHC RDW Plt Count MPV Neut % (Auto) Lymph % (Auto) Christian % (Auto) Eos % (Auto) Baso % (Auto) Neut # (Auto) Lymph # (Auto) Christian # (Auto) Eos # (Auto) Baso # (Auto) WBC Differential Differential Comment Sodium 137 Potassium 4.9 Chloride 101 Carbon Dioxide 31.9 Anion Gap 4 L BUN 10 Creatinine 0.89 Estimated GFR 88 L POC Glucose 192 H 290 H Random Glucose 216 H Calcium 9.0 03/11/18 03/11/18 03/11/18 05:19 07:51 12:36 WBC 7.1 RBC 4.55 Hgb 14.1 Hct 40.9 MCV 89.9 MCH 31.0 MCHC 34.4 RDW 13.6 Plt Count 252 MPV 7.2 Neut % (Auto) 69.3 Lymph % (Auto) 15.7 Christian % (Auto) 9.9 H Eos % (Auto) 4.6 H Baso % (Auto) 0.5 Neut # (Auto) 4.9 Lymph # (Auto) 1.1 Christian # (Auto) 0.7 Eos # (Auto) 0.3 Baso # (Auto) 0.0 WBC Differential . Differential Comment Auto diff final Sodium Potassium Chloride Carbon Dioxide Anion Gap BUN Creatinine Estimated GFR POC Glucose 224 H 202 H Random Glucose Calcium Assessment and Plan - Assessment (1) Diabetic infection of right foot Code(s): E11.628 - Type 2 diabetes mellitus with other skin complications; L08.9 - Local infection of the skin and subcutaneous tissue, unspecified Status: Acute - Plan Patient continues to show signs of improvement, blood flow appears to be helping and antibiotics are working as well. Incision and drainage site is struggling and needs re-debridement with wound VAC application. The plan is n.p.o. after liquid breakfast plan for surgery 330pm tomorrow pending OR scheduling. The patient will likely need IV antibiotics and wound VAC arrangement upon discharge. Patient has a knee scooter and understands the need to be nonweightbearing to expedite recovery. Dr. Keith will assume care starting tomorrow.
--- NOTE | 2018-03-11 17:41 | P.PNIM ---
Subjective Interval history: No new complaints. Physical Exam Vital signs: Last Vital Signs Temp 98.9 F 03/11/18 16:00 Pulse 76 03/11/18 16:00 Resp 18 03/11/18 16:00 BP 117/58 L 03/11/18 16:00 Pulse Ox 95 03/11/18 16:00 Narrative: General: NAD, AAOx3 Chest: CTA Cardiac: Regular Abd: +BS, soft ND/NT Ext: Right foot plantar wound with some necrotic tissue and malodorous drainage noted. Erythema on the dorsal aspect of the foot is improved compared and receding past the drawn line on his right foot. Results Labs CBC & Chem 7: 03/14/18 04:15 03/15/18 05:03 Assessment and Plan Assessment (1) Diabetic infection of right foot: Code(s): E11.628 - Type 2 diabetes mellitus with other skin complications; L08.9 - Local infection of the skin and subcutaneous tissue, unspecified Status: Acute (2) Hyperlipidemia: Code(s): E78.5 - Hyperlipidemia, unspecified Status: Chronic (3) GERD (gastroesophageal reflux disease): Code(s): K21.9 - Gastro-esophageal reflux disease without esophagitis Status: Chronic (4) DM type 2, uncontrolled, with retinopathy: Code(s): E11.319 - Type 2 diabetes mellitus with unspecified diabetic retinopathy without macular edema; E11.65 - Type 2 diabetes mellitus with hyperglycemia Status: Chronic (5) HTN (hypertension): Code(s): I10 - Essential (primary) hypertension Status: Chronic Plan Right foot wound Hx of Charcot foot s/p surgical repair - Pt is a 57 y/o male with poorly controlled diabetes, history of right foot Charcot s/p surgical intervention with hardware in 2013, morbid obesity, sleep apnea and diabetic neuropathy. - Patient states he stepped on a nail on Wednesday 02/28. He developed a low- grade fever and was given oral antibiotics in urgent care on 03/02. Patient states he noticed that the infection was getting worse he went back to urgent care and they referred him to the ED. Patient was taking Augmentin prior to this admission. Pt was admitted to [facility] on 03/05/18 - Foot X-Ray (03/05/18) 1. There is gas within the subcutaneous tissues which overlie the proximal phalanx of the second digit. No retained foreign body or destructive changes are seen within the proximal phalanx of the second digit. 2. Previous attempted fusion with failure of the hardware and advanced degenerative changes. - Foot MRI (03/05/18): - Small presumed phlegmonous collection in the plantar soft tissues of the right forefoot as described - Podiatry/ID/Vascular surgery are following. - Podiatry performed a bedside I&D of right foot abscess on 03/05 - Wound Care recommendations per podiatry: - Right foot irrigated and packed with half inch plain packing - Right foot dressed with 4 x 4's, Daniel and Satish - Continue with irrigation and packing change to be performed 2 times daily - Nonweightbearing to right foot - Surgical shoe - Cultures grew out Staph aureus, Enterococcus faecalis, and anaerobic gram negative rods. - Pt has been on Vanc and Zosyn (03/05 - 03/09) - Extremity Arterial Study (03/06/18): 1. Diminished VAN on the right at 0.71. 2. Mildly diminished VAN on the left at 0.9. - Pt was transferred to [facility] on 03/09/18 for Vascular surgery evaluation with angiogram. - Abx changed to Unasyn on 03/09/18 - Pt underwent RLE angiogram (03/10/18) with Dr. 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 There was two-vessel runoff to the right foot via the right peroneal artery, right anterior tibial artery. These vessels noted to be severely diseased at multiple segments. The peroneal artery was treated using atherectomy and angioplasty of the right peroneal artery followed by balloon angioplasty of the right tibial artery with successful results. Completion radiograph shows no flow-limiting dissection and less than 30% residual stenosis. - Pt had bedside dressing change with podiatry today and pt still has some necrotic tissue and per discussion with Dr. Reed, pt may require surgical intervention later this week (possibly ) for further debridement and possible wound vac placement. Diabetes Mellitus - NovoLog SSI - Add back home dose of Amaryl 2mg BID - Hold Metformin due to recent contrast - Accu checks COPD ROYCE - Duonebs PRN - Cont. CPAP when sleeping - DVT prophylaxis with Lovenox Progress Note: Quality VTE Deep Vein Thrombosis/Pulmonary Embolism Present on Admission: No _ (1) Hyperlipidemia Qualifiers: Hyperlipidemia type: (2) GERD (gastroesophageal reflux disease) Qualifiers: Esophagitis presence: (3) HTN (hypertension) Qualifiers: Hypertension type: essential hypertension Qualified Code(s): I10 - Essential (primary) hypertension
[2018-03-11] MEDS: Insulin Detemir Inj 1,000 UNIT/10 ML Vial SQ SCH (20:52)
[2018-03-12] MEDS: Ampicillin/Sulbactam Inj 3 GM in Sodium Chloride 0.9% Inj 100 ML IV.SIG SCH ×4 (02:59→21:05)
[2018-03-12] MEDS ORDERED: Sodium Chlor 0.9% Inj 500 ML IV.CONT ONE (05:15)
[2018-03-12] MEDS ORDERED: Chlorhexidine Gluconate 2% 1 Pack (2 Cloths) TOPICAL ONE (05:15)
[2018-03-12] MEDS: Glimepiride 2 MG Tablet PO SCH ×2 (08:42→18:10)
[2018-03-12] MEDS: Famotidine 20 MG Tablet PO SCH ×2 (08:43→21:06)
[2018-03-12] MEDS: Insulin Detemir Inj 1,000 UNIT/10 ML Vial SQ SCH ×2 (08:43→21:08)
[2018-03-12] MEDS: Lisinopril 10 MG Tablet PO SCH (08:43)
[2018-03-12] MEDS: Insulin NovoLOG Aspart Correctional Sugar Inj SQ SCH ×4 (08:44→21:08)
[2018-03-12] MEDS ORDERED: VANCOMYCIN TROUGH OTHER ONE (09:45)
[2018-03-12] MEDS: Enoxaparin Inj 30 MG/0.3 ML Syringe SQ SCH (11:32)
[2018-03-12] MEDS ORDERED: Cisatracurium Inj 20 MG/10 ML Vial ONE (16:16)
[2018-03-12] MEDS ORDERED: fentaNYL Citrate Inj 100 MCG/2 ML Ampul ONE (17:21)
--- NOTE | 2018-03-12 17:25 | P.BOP ---
- Preoperative Diagnosis (1) Diabetic infection of right foot - Postoperative Diagnosis (1) Diabetic infection of right foot Date of procedure: 03/12/18 Procedure: 1. incision and drainage/irrigation and debridement right foot with wound vac Plantar lesion noted with fibronecrotic tissue and purulence sub 2nd metatarsal head probing directly to joint level. Necrotic fatty tissue extending in fat pad in all directions to toes, 4th and medial 1st metatarsal heads, and proximally another centimeter. Minimal to almost no bleeding noted throughout. Dusky appearance to tissue to distal aspect under toes 3 and 3. Culture taken of tissue/swab right foot. Irrigation with 3L normal saline. Partial closure with 2-0 nylon and wound vac placed over incision area. No tourniquet utilized. DISPOSITION Notified Dr Boyce of lack of blood flow to the area to see if there is any last ditch effort to increase flow. Will keep vac on for 2 days along incision and remove over the weekend to examine foot and wound. If this is not successful or does not heal, I feel patient will likely move on to more proximal amputation and do not feel a TMA would heal with current lack of flow. Will be recommending BKA at that point if this is not successful. Strict nonweightbearing to right foot. Anesthesia: GETA Surgeon: Myrtle Keith DPM Lead Generation Specialist: Ami Nagy Estimated blood loss (mL): 2 Pathology: other (1. culture right foot) Condition: stable Disposition: PACU
--- NOTE | 2018-03-12 19:26 | P.PNIM ---
Subjective Interval history: Tried to round on patient around 1600 - patient off the floor for procedure Physical Exam Vital signs: Last Vital Signs Temp 98.7 F 03/12/18 17:40 Pulse 77 03/12/18 17:40 Resp 17 03/12/18 17:40 BP 136/70 03/12/18 17:40 Pulse Ox 99 03/12/18 17:40 Results Labs CBC & Chem 7: 03/14/18 04:15 03/15/18 05:03 Assessment and Plan Assessment (1) Diabetic infection of right foot: Code(s): E11.628 - Type 2 diabetes mellitus with other skin complications; L08.9 - Local infection of the skin and subcutaneous tissue, unspecified Status: Acute (2) Hyperlipidemia: Code(s): E78.5 - Hyperlipidemia, unspecified Status: Chronic (3) GERD (gastroesophageal reflux disease): Code(s): K21.9 - Gastro-esophageal reflux disease without esophagitis Status: Chronic (4) DM type 2, uncontrolled, with retinopathy: Code(s): E11.319 - Type 2 diabetes mellitus with unspecified diabetic retinopathy without macular edema; E11.65 - Type 2 diabetes mellitus with hyperglycemia Status: Chronic (5) HTN (hypertension): Code(s): I10 - Essential (primary) hypertension Status: Chronic Plan Right foot wound Hx of Charcot foot s/p surgical repair - Pt is a 57 y/o male with poorly controlled diabetes, history of right foot Charcot s/p surgical intervention with hardware in 2013, morbid obesity, sleep apnea and diabetic neuropathy. - Patient states he stepped on a nail on Wednesday 02/28. He developed a low- grade fever and was given oral antibiotics in urgent care on 03/02. Patient states he noticed that the infection was getting worse he went back to urgent care and they referred him to the ED. Patient was taking Augmentin prior to this admission. Pt was admitted to [facility] on 03/05/18 - Foot X-Ray (03/05/18) 1. There is gas within the subcutaneous tissues which overlie the proximal phalanx of the second digit. No retained foreign body or destructive changes are seen within the proximal phalanx of the second digit. 2. Previous attempted fusion with failure of the hardware and advanced degenerative changes. - Foot MRI (03/05/18): - Small presumed phlegmonous collection in the plantar soft tissues of the right forefoot as described - Podiatry/ID/Vascular surgery are following. - Podiatry performed a bedside I&D of right foot abscess on 03/05 - Wound Care recommendations per podiatry: - Right foot irrigated and packed with half inch plain packing - Right foot dressed with 4 x 4's, Daniel and Satish - Continue with irrigation and packing change to be performed 2 times daily - Nonweightbearing to right foot - Surgical shoe - Cultures grew out Staph aureus, Enterococcus faecalis, and anaerobic gram negative rods. - Pt has been on Vanc and Zosyn (03/05 - 03/09) - Extremity Arterial Study (03/06/18): 1. Diminished VAN on the right at 0.71. 2. Mildly diminished VAN on the left at 0.9. - Pt was transferred [facility] on 03/09[facility]18 for Vascular surgery evaluation with angiogram. - Abx changed to Unasyn on 03/09/18 - Pt underwent RLE angiogram (03/10/18) with Dr. 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 There was two-vessel runoff to the right foot via the right peroneal artery, right anterior tibial artery. These vessels noted to be severely diseased at multiple segments. The peroneal artery was treated using atherectomy and angioplasty of the right peroneal artery followed by balloon angioplasty of the right tibial artery with successful results. Completion radiograph shows no flow-limiting dissection and less than 30% residual stenosis. - Pt had bedside dressing change with podiatry today and pt still has some necrotic tissue and per discussion with Dr. Reed, pt may require surgical intervention later this week (possibly ) for further debridement and possible wound vac placement. Diabetes Mellitus - NovoLog SSI - Add back home dose of Amaryl 2mg BID - Hold Metformin due to recent contrast - Accu checks COPD ROYCE - Duonebs PRN - Cont. CPAP when sleeping - DVT prophylaxis with Lovenox Attending Attestation The exam, history, and the medical decision-making described in the above note were completed with the assistance of the mid-level provider. I reviewed and agree with the findings presented. I attest that I had a [id number] encounter with the patient on the same day, and personally performed and documented my assessment and findings in the medical record. Patient examined. Assessment and plan formulated with Nicole NASSAR I agree with the above. Progress Note: Quality VTE Deep Vein Thrombosis/Pulmonary Embolism Present on Admission: No _ (1) Hyperlipidemia Qualifiers: Hyperlipidemia type: (2) GERD (gastroesophageal reflux disease) Qualifiers: Esophagitis presence: (3) HTN (hypertension) Qualifiers: Hypertension type: essential hypertension Qualified Code(s): I10 - Essential (primary) hypertension
[2018-03-12] MEDS: HYDROmorphone PF Inj 0.5 MG/0.5 ML Syringe IV.PUSH PRN (21:10)
[2018-03-13] MEDS: Ampicillin/Sulbactam Inj 3 GM in Sodium Chloride 0.9% Inj 100 ML IV.SIG SCH ×4 (02:59→21:23)
[2018-03-13] MEDS: HYDROmorphone PF Inj 0.5 MG/0.5 ML Syringe IV.PUSH PRN ×2 (04:13→11:40)
[2018-03-13] MEDS: Lisinopril 10 MG Tablet PO SCH (09:18)
[2018-03-13] MEDS: Insulin NovoLOG Aspart Correctional Sugar Inj SQ SCH ×4 (09:18→21:22)
[2018-03-13] MEDS: Famotidine 20 MG Tablet PO SCH ×2 (09:19→21:20)
[2018-03-13] MEDS: Glimepiride 2 MG Tablet PO SCH ×2 (09:19→17:55)
[2018-03-13] MEDS: Enoxaparin Inj 30 MG/0.3 ML Syringe SQ SCH (09:19)
[2018-03-13] MEDS: Insulin Detemir Inj 1,000 UNIT/10 ML Vial SQ SCH ×2 (09:20→21:21)
--- NOTE | 2018-03-13 12:09 | MP ---
cc: SagarKorinakd BROOKS DATE OF OPERATION: 03/12/2018 INDICATIONS: The patient presented to the hospital initially with gas gangrene of the right plantar foot after stepping on a jordan nail. He is diabetic. He underwent that procedure, was found to have no blood flow and underwent vascular surgery, which repaired flow to the anterior and dorsal foot and ankle areas, but the patient was found to have no flow to his posterior tibial artery, but did have his peroneal and anterior tibial arteries wide open and it was stated that there was nothing that can be done for the posterior tibial artery. I discussed with the patient that his tissue in the area did not appear to be doing well and the infection did remain in the area, which was likely due to reduced blood flow and inability to heal and that he would need to undergo at a minimum irrigation and debridement of the area where he had his previous abscess. He agreed to move forward with surgery. DESCRIPTION OF PROCEDURE: He was seen in preop holding by myself, nursing staff and anesthesia, where the correct patient, side and site were all confirmed to be correct in the right foot. He was then taken to the surgical suite in supine position. The right foot was prepped and draped in normal sterile fashion. After timeouts were performed per facility protocol, attention was directed to the right foot where there was noted to be a plantar lesion under the second metatarsal head area with fibronecrotic tissue and purulence in the area. It did probe directly to the level of the plantar second metatarsophalangeal joint. There was necrotic fatty tissue extending in the fat pad in all directions primarily to the digits distally of the second, third, and fourth as well as medially to the first metatarsophalangeal joint and laterally over to the fourth metatarsal head plantarly and proximally another centimeter. This cavernous area was debrided excisionally with a 15 blade and rongeur of all of the necrotic fatty tissue down to minimally bleeding tissue in the subcutaneous layer. There was a tendon base in the wound that was noted in this area as well. A culture was taken of the right foot, followed by irrigation with 3 liters of normal sterile saline and partial closure with 2-0 nylon, followed by a small wound VAC placed over the incision area in order to reduce the amount of space and hopefully assist in bringing forth more granulation tissue for healing. Again, minimal bleeding was noted. Dr. yeager was notified of the lack of blood flow to the area and he was confirming that the posterior tibial artery was not able to be reconstituted with flow to the area and that the patient would possibly have trouble healing the area. The patient tolerated the procedure; however, in anesthesia without complications at this time and was taken back to PACU with vital signs stable and vascular status intact to the remainder of the right lower extremity, but still does not have a posterior tibial artery intact. He will be nonweightbearing strictly, will keep the wound VAC on for a few days and then examine the wound to see how it is progressing. SURGEON: Myrtle Keith DPM VENEER JOINER: Staff. PREOPERATIVE DIAGNOSIS: Diabetic infection, right foot. POSTOPERATIVE DIAGNOSIS: Diabetic infection, right foot. PROCEDURE PERFORMED: Irrigation and debridement of right foot with wound VAC placement, and incision and drainage of abscess, right foot. PATHOLOGY: Culture, right foot. Prophylaxis on IV antibiotics already. ANESTHESIA: General endotracheal anesthesia. BLOOD LOSS: Minimal. COMPLICATIONS: None. CONDITION: Stable to PACU. DISPOSITION: Strict nonweightbearing. Wound VAC for a few days and then examine the wound and I did notify Dr. Yeager of the lack of the blood flow to the area and that if the patient does fail to heal this area he will likely go on to a [id number] amputation secondary to no adequate plantar flap blood flow at the level of foot. TODD Devi/july/sanya , 10:58 AM , 11:06 AM NEO
--- NOTE | 2018-03-13 13:17 | P.PNIM ---
Subjective Interval history: No new complaints afebrile pain is controlled currently Physical Exam Vital signs: Last Vital Signs Temp 97.8 F 03/13/18 12:00 Pulse 80 03/13/18 12:00 Resp 17 03/13/18 12:00 BP 117/74 03/13/18 12:00 Pulse Ox 94 L 03/13/18 12:00 Narrative: General: NAD, AAOx3 Chest: CTA Cardiac: Regular Abd: +BS, soft ND/NT Ext: Right foot with wound vac in placed and bandages are c/d/i Results Labs CBC & Chem 7: 03/11/18 05:19 03/13/18 04:38 Imaging Foot X-Ray 03/05/18 09:35 CONCLUSION: 1. There is gas within the subcutaneous tissues which overlie the proximal phalanx of the second digit. No retained foreign body or destructive changes are seen within the proximal phalanx of the second digit. 2. Previous attempted fusion with failure of the hardware and advanced degenerative changes. Foot MRI 03/05/18 11:27 CONCLUSION: Small presumed phlegmonous collection in the plantar soft tissues of the right forefoot as described Extremity Arterial Study 03/06/18 00:00 CONCLUSION: 1. Diminished VAN on the right at 0.71. 2. Mildly diminished VAN on the left at 0.9. Assessment and Plan Assessment (1) Diabetic infection of right foot: Code(s): E11.628 - Type 2 diabetes mellitus with other skin complications; L08.9 - Local infection of the skin and subcutaneous tissue, unspecified Status: Acute (2) Hyperlipidemia: Code(s): E78.5 - Hyperlipidemia, unspecified Status: Chronic (3) GERD (gastroesophageal reflux disease): Code(s): K21.9 - Gastro-esophageal reflux disease without esophagitis Status: Chronic (4) DM type 2, uncontrolled, with retinopathy: Code(s): E11.319 - Type 2 diabetes mellitus with unspecified diabetic retinopathy without macular edema; E11.65 - Type 2 diabetes mellitus with hyperglycemia Status: Chronic (5) HTN (hypertension): Code(s): I10 - Essential (primary) hypertension Status: Chronic Plan Right foot wound Hx of Charcot foot s/p surgical repair - Pt is a 57 y/o male with poorly controlled diabetes, history of right foot Charcot s/p surgical intervention with hardware in 2013, morbid obesity, sleep apnea and diabetic neuropathy. - Patient states he stepped on a nail on Wednesday 02/28. He developed a low- grade fever and was given oral antibiotics in urgent care on 03/02. Patient states he noticed that the infection was getting worse he went back to urgent care and they referred him to the ED. Patient was taking Augmentin prior to this admission. Pt was admitted to [facility] on 03/05/18 - Foot X-Ray (03/05/18) 1. There is gas within the subcutaneous tissues which overlie the proximal phalanx of the second digit. No retained foreign body or destructive changes are seen within the proximal phalanx of the second digit. 2. Previous attempted fusion with failure of the hardware and advanced degenerative changes. - Foot MRI (03/05/18): - Small presumed phlegmonous collection in the plantar soft tissues of the right forefoot as described - Podiatry/ID/Vascular surgery are following. - Podiatry performed a bedside I&D of right foot abscess on 03/05 - Wound Care recommendations per podiatry: - Right foot irrigated and packed with half inch plain packing - Right foot dressed with 4 x 4's, Daniel and Satish - Continue with irrigation and packing change to be performed 2 times daily - Nonweightbearing to right foot - Surgical shoe - Cultures grew out Staph aureus, Enterococcus faecalis, and anaerobic gram negative rods. - Pt has been on Vanc and Zosyn (03/05 - 03/09) - Extremity Arterial Study (03/06/18): 1. Diminished VAN on the right at 0.71. 2. Mildly diminished VAN on the left at 0.9. - Pt was transferred to [facility] on 03/09/18 for Vascular surgery evaluation with angiogram. - Abx changed to Unasyn on 03/09/18 - Pt underwent RLE angiogram (03/10/18) with Dr. 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 There was two-vessel runoff to the right foot via the right peroneal artery, right anterior tibial artery. These vessels noted to be severely diseased at multiple segments. The peroneal artery was treated using atherectomy and angioplasty of the right peroneal artery followed by balloon angioplasty of the right tibial artery with successful results. Completion radiograph shows no flow-limiting dissection and less than 30% residual stenosis. - Pt had bedside dressing change with podiatry today and pt still has some necrotic tissue and per discussion with Dr. Reed - Pt underwent Irrigation and debridement of right foot with wound VAC placement , and incision and drainage of abscess, right foot on 03/12/[address] Keith. Per the surgical proceurue documentation there was very minimal bleeding during the surgery. Diabetes Mellitus - NovoLog SSI - Amaryl 2mg BID - Hold Metformin due to recent contrast - Accu checks COPD ROYCE - Duonebs PRN - Cont. CPAP when sleeping - DVT prophylaxis with Lovenox Progress Note: Quality VTE Deep Vein Thrombosis/Pulmonary Embolism Present on Admission: No _ (1) Hyperlipidemia Qualifiers: Hyperlipidemia type: (2) GERD (gastroesophageal reflux disease) Qualifiers: Esophagitis presence: (3) HTN (hypertension) Qualifiers: Hypertension type: essential hypertension Qualified Code(s): I10 - Essential (primary) hypertension
--- NOTE | 2018-03-13 20:53 | P.PNPOD ---
Review of Systems All other systems reviewed negative except as stated in HPI Physical Exam Vital signs: Vital Signs 03/12/18 23:21 03/13/18 00:00 03/13/18 04:00 Temperature 97.1 F L 98.3 F Pulse Rate 78 78 Respiratory Rate 18 18 18 Blood Pressure 126/68 130/62 Pulse Oximetry 94 L 93 L 03/13/18 08:00 03/13/18 08:49 03/13/18 12:00 Temperature 97.9 F 97.8 F Pulse Rate 79 80 Respiratory Rate 17 17 Blood Pressure 137/69 117/74 Pulse Oximetry 96 94 L 94 L 03/13/18 16:00 Temperature 98.0 F Pulse Rate 82 Respiratory Rate 17 Blood Pressure 129/72 Pulse Oximetry 96 Intake & Output 03/13/18 03/13/18 03/14/18 06:59 18:59 06:59 Intake Total 200 / 200 1700 / 1700 Output Total 800 / 800 1000 / 1000 Balance -600 / -600 700 / 700 Weight 114.4 kg Intake: IV 200 / 200 200 / 200 Unasyn Inj 3 GM In NS Inj 100 200 / 200 200 / 200 ML @ 200 mls/hr IV.SIG Q6H [facility] Rx#:[id number] Oral 1500 / 1500 Output: Urine 800 / 800 1000 / 1000 Other: Mode Setting Right Foot Continuous Continuous Date of Last Bowel Movement 03/12/18 # Bowel Movements 0 Narrative: vac dressing intact and functioning right foot Medications and Allergies Active Medications: Active Medications Al Hydroxide/Mg Hydroxide (Milk Of [place] Liq) 30 ml PO DAILY PRN PRN Reason: CONSTIPATION Albuterol (Ventolin Hfa Inh) 2 puff INH Q4H PRN PRN Reason: SHORTNESS OF BREATH Atorvastatin Calcium (Lipitor) 80 mg PO DAILY [facility] Last Admin: 03/13/18 09:18 Dose: 80 mg Dextrose (D50w Vial) 50 ml IV.PUSH UNSCH PRN PRN Reason: PER HYPOGLYCEMIA PROTOCOL Enoxaparin Sodium (Lovenox Inj) 30 mg SQ DAILY [facility] Last Admin: 03/13/18 09:19 Dose: 30 mg Famotidine (Pepcid) 20 mg PO BID [facility] Last Admin: 03/13/18 09:19 Dose: 20 mg Fluticasone Propionate (Flonase Nasal [place]) 2 spray EACH [facility] Last Admin: 03/12/18 21:09 Dose: Not Given Glimepiride (Amaryl) 2 mg PO BIDAC [facility] Last Admin: 03/13/18 17:55 Dose: 2 mg Glucagon (Glucagon Inj) 1 mg OTHER PRN PRN PRN Reason: for Hypoglycemia Protocol Hydromorphone HCl (Dilaudid Pf Inj) 1 mg IV.PUSH Q6HR PRN PRN Reason: BREAKTHROUGH PAIN Last Admin: 03/13/18 11:40 Dose: 1 mg Ampicillin Sodium/Sulbactam (Sodium 3 gm/ Sodium Chloride) 100 mls @ 200 mls/ hr IV.SIG Q6H [facility] Last Infusion: 03/13/18 14:07 Dose: Infused Insulin Aspart (Novolog Insulin Correctional Sugar Inj) 0 unit SQ ACHS [facility]; Protocol Last Admin: 03/13/18 17:55 Dose: 7 unit Insulin Detemir (Levemir Inj) 10 unit SQ BID [facility] Last Admin: 03/13/18 09:20 Dose: 10 unit Lactulose (Lactulose Liq) 30 ml PO DAILY PRN PRN Reason: CONSTIPATION Last Admin: 03/08/18 21:26 Dose: 30 ml Lisinopril (Prinivil) 10 mg PO DAILY [facility] Last Admin: 03/13/18 09:18 Dose: 10 mg Melatonin (Melatonin) 5 mg PO HS PRN PRN Reason: INSOMNIA Last Admin: 03/07/18 20:41 Dose: 5 mg Oxycodone/Acetaminophen (Percocet 5/325 Mg) 1 tab PO Q6H PRN PRN Reason: pain level 3-10 Last Admin: 03/13/18 18:03 Dose: 1 tab Sodium Chloride (Ns Flush) 2 ml IV.FLUSH BID [facility] Last Admin: 03/13/18 09:20 Dose: 2 ml Sodium Chloride (Ns Flush) 2 ml IV.FLUSH PRN PRN PRN Reason: FLUSH AFTER USING IV ACCESS Last Admin: 03/12/18 08:44 Dose: 2 ml Vitamin D (Vitamin D3) 2,000 unit PO DAILY [facility] Last Admin: 03/13/18 09:19 Dose: 2,000 unit Allergies Allergy/AdvReac Type Severity Reaction Status Date / Time No Known Allergies Allergy Verified 03/05/18 09:21 Home Medications Medication Instructions Recorded Confirmed Type albuterol sulfate [Ventolin HFA] 1 - 2 puff INHALATION Q4-6H PRN 03/05/18 History ascorbic acid (vitamin C) [Vitamin 250 mg PO DAILY 03/05/18 03/05/18 History C] atorvastatin 80 mg PO DAILY 03/05/18 03/05/18 History beta carotene 5,000 unit PO DAILY 03/05/18 03/05/18 History cholecalciferol (vitamin D3) 2,000 unit PO DAILY 03/05/18 03/05/18 History [Vitamin D3] exenatide microspheres [Bydureon 2 mg SUBCUT Q7D 03/05/18 03/05/18 History BCise] fluticasone 2 spray INTRANASAL HS 03/05/18 03/05/18 History fluticasone-salmeterol [Advair 1 inh INHALATION BID 03/05/18 03/05/18 History Diskus] glimepiride 2 mg PO BID 03/05/18 03/05/18 History insulin degludec [Tresiba 30 unit SUBCUT HS 03/05/18 03/05/18 History FlexTouch U-100] lisinopril 10 mg PO DAILY 03/05/18 03/05/18 History metformin 1,000 mg PO DAILY 03/05/18 03/05/18 History multivitamin 1 tab PO DAILY 03/05/18 03/05/18 History omega-3 fatty acids [Fish Oil 1,000 mg PO DAILY 03/05/18 03/05/18 History Concentrate] sildenafil 25 mg PO DAILY PRN 03/05/18 03/05/18 History vit B complex 100 combo no.2 1 tab PO DAILY 03/05/18 03/05/18 History [B-100 Complex] vitamin E 200 unit PO DAILY 03/05/18 03/05/18 History Results - Labs CBC & Chem 7: 03/11/18 05:19 03/13/18 04:38 Laboratory Results - last 24 hr 03/12/18 03/13/18 03/13/18 21:01 04:38 08:02 Creatinine 1.02 Estimated GFR 75 L POC Glucose 228 H 250 H 03/13/18 03/13/18 11:40 17:16 Creatinine Estimated GFR POC Glucose 266 H 256 H Microbiology 03/12/18 17:01 Wound - Foot Acid Fast Bacilli Smear - Final No acid fast bacilli seen 03/12/18 17:01 Wound - Foot Gram Stain - Final 03/12/18 17:01 Wound - Foot Wound Culture - Preliminary No growth in 24 hours 03/12/18 17:01 Wound - Foot Fungal Smear - Final No fungal elements seen Assessment and Plan - Assessment (1) Diabetic infection of right foot Code(s): E11.628 - Type 2 diabetes mellitus with other skin complications; L08.9 - Local infection of the skin and subcutaneous tissue, unspecified Status: Acute Plan: s/p I&D R foot with wound vac, Dr Keith 03/12/18 Discussed in detail absence of PT arterial flow and wound healing issues very likely Will remove vac dressing and examine tomorrow. Discussed with patient and that if this does not heal, will likely need minimum of BKA
[2018-03-14] MEDS: Ampicillin/Sulbactam Inj 3 GM in Sodium Chloride 0.9% Inj 100 ML IV.SIG SCH ×4 (02:18→20:44)
[2018-03-14 05:45] LABS: Baso % (Auto) 0.4 % (0.0-2.0); Eos # (Auto) 0.4 th/mm3 (0.0-0.4); Eos % (Auto) 4.7 % (0.0-4.0); Hemoglobin 13.5 gm/dL (13.0-17.0); Lymph # (Auto) 1.7 th/mm3 (1.0-4.8); Lymph % (Auto) 21.9 % (9.0-44.0); Mean Corpuscular HGB Conc 33.7 % (32.0-36.0); Mean Corpuscular Hemoglobin 30.4 pg (27.0-34.0); Mean Corpuscular Volume 90.4 fL (80.0-100.0); Mean Platelet Volume 7.6 fL (7.0-11.0); Mono # (Auto) 0.6 th/mm3 (0.0-0.9); Neut # (Auto) 5.2 th/mm3 (1.8-7.7); Platelet Count 261 th/mm3 (150-450); Red Blood Count 4.43 mil/mm3 (4.50-5.90); Red Cell Distribution Width 13.8 % (11.6-17.2); White Blood Count 7.9 th/mm3 (4.0-11.0)
[2018-03-14 06:07] LABS: Calcium 8.6 mg/dL (8.5-10.1); Magnesium 1.8 mg/dL (1.5-2.5); Potassium 4.4 meq/L (3.5-5.1)
[2018-03-14] MEDS: Lisinopril 10 MG Tablet PO SCH (09:50)
[2018-03-14] MEDS: Glimepiride 2 MG Tablet PO SCH ×2 (09:51→17:12)
[2018-03-14] MEDS: Famotidine 20 MG Tablet PO SCH ×2 (09:52→20:43)
[2018-03-14] MEDS: Insulin Detemir Inj 1,000 UNIT/10 ML Vial SQ SCH ×2 (09:52→20:43)
[2018-03-14] MEDS: Enoxaparin Inj 30 MG/0.3 ML Syringe SQ SCH (09:52)
[2018-03-14] MEDS: Insulin NovoLOG Aspart Correctional Sugar Inj SQ SCH ×4 (09:53→20:47)
--- NOTE | 2018-03-14 12:22 | P.PNIM ---
Subjective Interval history: No new complaints. Physical Exam Vital signs: Last Vital Signs Temp 98.1 F 03/14/18 08:00 Pulse 78 03/14/18 08:00 Resp 17 03/14/18 08:00 BP 129/62 03/14/18 08:00 Pulse Ox 94 L 03/14/18 08:00 Narrative: General: NAD, AAOx3 Chest: CTA Cardiac: Regular Abd: +BS, soft ND/NT Ext: Right foot with wound vac in placed and bandages are c/d/i Results Labs CBC & Chem 7: 03/14/18 04:15 03/15/18 05:03 Assessment and Plan Assessment (1) Diabetic infection of right foot: Code(s): E11.628 - Type 2 diabetes mellitus with other skin complications; L08.9 - Local infection of the skin and subcutaneous tissue, unspecified Status: Acute (2) Hyperlipidemia: Code(s): E78.5 - Hyperlipidemia, unspecified Status: Chronic (3) GERD (gastroesophageal reflux disease): Code(s): K21.9 - Gastro-esophageal reflux disease without esophagitis Status: Chronic (4) DM type 2, uncontrolled, with retinopathy: Code(s): E11.319 - Type 2 diabetes mellitus with unspecified diabetic retinopathy without macular edema; E11.65 - Type 2 diabetes mellitus with hyperglycemia Status: Chronic (5) HTN (hypertension): Code(s): I10 - Essential (primary) hypertension Status: Chronic Plan Right foot wound Hx of Charcot foot s/p surgical repair - Pt is a 57 y/o male with poorly controlled diabetes, history of right foot Charcot s/p surgical intervention with hardware in 2013, morbid obesity, sleep apnea and diabetic neuropathy. - Patient states he stepped on a nail on Wednesday 02/28. He developed a low- grade fever and was given oral antibiotics in urgent care on 03/02. Patient states he noticed that the infection was getting worse he went back to urgent care and they referred him to the ED. Patient was taking Augmentin prior to this admission. Pt was admitted to [facility] on 03/05/18 - Foot X-Ray (03/05/18) 1. There is gas within the subcutaneous tissues which overlie the proximal phalanx of the second digit. No retained foreign body or destructive changes are seen within the proximal phalanx of the second digit. 2. Previous attempted fusion with failure of the hardware and advanced degenerative changes. - Foot MRI (03/05/18): - Small presumed phlegmonous collection in the plantar soft tissues of the right forefoot as described - Podiatry/ID/Vascular surgery are following. - Podiatry performed a bedside I&D of right foot abscess on 03/05 - Wound Care recommendations per podiatry: - Right foot irrigated and packed with half inch plain packing - Right foot dressed with 4 x 4's, Daniel and Satish - Continue with irrigation and packing change to be performed 2 times daily - Nonweightbearing to right foot - Surgical shoe - Cultures grew out Staph aureus, Enterococcus faecalis, and anaerobic gram negative rods. - Pt has been on Vanc and Zosyn (03/05 - 03/09) - Extremity Arterial Study (03/06/18): 1. Diminished VAN on the right at 0.71. 2. Mildly diminished VAN on the left at 0.9. - Pt was transferred to [facility] on 03/09/18 for Vascular surgery evaluation with angiogram. - Abx changed to Unasyn on 03/09/[address] Ruffin - Pt underwent RLE angiogram (03/10/18) with Dr. 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 There was two-vessel runoff to the right foot via the right peroneal artery, right anterior tibial artery. These vessels noted to be severely diseased at multiple segments. The peroneal artery was treated using atherectomy and angioplasty of the right peroneal artery followed by balloon angioplasty of the right tibial artery with successful results. Completion radiograph shows no flow-limiting dissection and less than 30% residual stenosis. - Pt had bedside dressing change with podiatry today and pt still has some necrotic tissue and per discussion with Dr. Reed - Pt underwent Irrigation and debridement of right foot with wound VAC placement , and incision and drainage of abscess, right foot on 03/12/[address] Keith. Per the surgical procedure documentation there was very minimal bleeding during the surgery. - Podiatry plans to change wound vac today and reevaluate the wound - Per podiatry patient would benefit from hyperbaric treatments Diabetes Mellitus - NovoLog SSI - Amaryl 2mg BID - resume Metformin (12/8) - continue levemir 10 units SQ BID - Accu checks COPD ROYCE - Duonebs PRN - Cont. CPAP when sleeping - DVT prophylaxis with Lovenox Progress Note: Quality VTE Deep Vein Thrombosis/Pulmonary Embolism Present on Admission: No _ (1) Hyperlipidemia Qualifiers: Hyperlipidemia type: (2) GERD (gastroesophageal reflux disease) Qualifiers: Esophagitis presence: (3) HTN (hypertension) Qualifiers: Hypertension type: essential hypertension Qualified Code(s): I10 - Essential (primary) hypertension
--- NOTE | 2018-03-14 14:02 | P.PNPOD ---
Review of Systems All other systems reviewed negative except as stated in HPI Physical Exam Vital signs: Vital Signs 03/13/18 16:00 03/13/18 20:00 03/14/18 04:00 Temperature 98.0 F 98.4 F 97.1 F L Pulse Rate 82 81 76 Respiratory Rate 17 18 18 Blood Pressure 129/72 146/74 H 140/80 Pulse Oximetry 96 97 97 03/14/18 08:00 03/14/18 12:00 03/14/18 13:46 Temperature 98.1 F 97.9 F Pulse Rate 78 82 Respiratory Rate 17 17 Blood Pressure 129/62 118/69 Pulse Oximetry 94 L 94 L 94 L Intake & Output 03/13/18 03/14/18 03/14/18 18:59 06:59 18:59 Intake Total 1700 / 1700 200 / 200 100 / 100 Output Total 1000 / 1000 Balance 700 / 700 200 / 200 100 / 100 Weight 113.4 kg Intake: IV 200 / 200 200 / 200 100 / 100 Unasyn Inj 3 GM In NS Inj 100 200 / 200 200 / 200 100 / 100 ML @ 200 mls/hr IV.SIG Q6H [facility] Rx#:[id number] Oral 1500 / 1500 Output: Urine 1000 / 1000 Other: Mode Setting Right Foot Continuous Continuous Continuous # Voids 1 # Bowel Movements 0 Medications and Allergies Active Medications: Active Medications Al Hydroxide/Mg Hydroxide (Milk Of [place] a Liq) 30 ml PO DAILY PRN PRN Reason: CONSTIPATION Albuterol (Ventolin Hfa Inh) 2 puff INH Q4H PRN PRN Reason: SHORTNESS OF BREATH Atorvastatin Calcium (Lipitor) 80 mg PO DAILY [facility] Last Admin: 03/14/18 09:52 Dose: 80 mg Dextrose (D50w Vial) 50 ml IV.PUSH UNSCH PRN PRN Reason: PER HYPOGLYCEMIA PROTOCOL Enoxaparin Sodium (Lovenox Inj) 30 mg SQ DAILY [facility] Last Admin: 03/14/18 09:52 Dose: 30 mg Famotidine (Pepcid) 20 mg PO BID [facility] Last Admin: 03/14/18 09:52 Dose: 20 mg Fluticasone Propionate (Flonase Nasal [place]) 2 spray EACH [facility] Last Admin: 03/13/18 21:20 Dose: Not Given Glimepiride (Amaryl) 2 mg PO BIDAC [facility] Last Admin: 03/14/18 09:51 Dose: 2 mg Glucagon (Glucagon Inj) 1 mg OTHER PRN PRN PRN Reason: for Hypoglycemia Protocol Hydromorphone HCl (Dilaudid Pf Inj) 1 mg IV.PUSH Q6HR PRN PRN Reason: BREAKTHROUGH PAIN Last Admin: 03/13/18 11:40 Dose: 1 mg Ampicillin Sodium/Sulbactam (Sodium 3 gm/ Sodium Chloride) 100 mls @ 200 mls/ hr IV.SIG Q6H [facility] Last Infusion: 03/14/18 13:24 Dose: Infused Insulin Aspart (Novolog Insulin Correctional Sugar Inj) 0 unit SQ ACHS [facility]; Protocol Last Admin: 03/14/18 12:39 Dose: 4 unit Insulin Detemir (Levemir Inj) 10 unit SQ BID [facility] Last Admin: 03/14/18 09:52 Dose: 10 unit Lactulose (Lactulose Liq) 30 ml PO DAILY PRN PRN Reason: CONSTIPATION Last Admin: 03/08/18 21:26 Dose: 30 ml Lisinopril (Prinivil) 10 mg PO DAILY [facility] Last Admin: 03/14/18 09:50 Dose: 10 mg Melatonin (Melatonin) 5 mg PO HS PRN PRN Reason: INSOMNIA Last Admin: 03/07/18 20:41 Dose: 5 mg [facility] Admin: 03/14/18 13:00 Dose: 1,000 mg Oxycodone/Acetaminophen (Percocet 5/325 Mg) 1 tab PO Q6H PRN PRN Reason: pain level 3-10 Last Admin: 03/14/18 00:39 Dose: 1 tab Sodium Chloride (Ns Flush) 2 ml IV.FLUSH BID [facility] Last Admin: 03/14/18 09:53 Dose: 2 ml Sodium Chloride (Ns Flush) 2 ml IV.FLUSH PRN PRN PRN Reason: FLUSH AFTER USING IV ACCESS Last Admin: 03/12/18 08:44 Dose: 2 ml Vitamin D (Vitamin D3) 2,000 unit PO DAILY [facility] Last Admin: 03/14/18 09:52 Dose: 2,000 unit Allergies Allergy/AdvReac Type Severity Reaction Status Date / Time No Known Allergies Allergy Verified 03/05/18 09:21 Home Medications Medication Instructions Recorded Confirmed Type albuterol sulfate [Ventolin HFA] 1 - 2 puff INHALATION Q4-6H PRN 03/05/18 History ascorbic acid (vitamin C) [Vitamin 250 mg PO DAILY 03/05/18 03/05/18 History C] atorvastatin 80 mg PO DAILY 03/05/18 03/05/18 History beta carotene 5,000 unit PO DAILY 03/05/18 03/05/18 History cholecalciferol (vitamin D3) 2,000 unit PO DAILY 03/05/18 03/05/18 History [Vitamin D3] exenatide microspheres [Bydureon 2 mg SUBCUT Q7D 03/05/18 03/05/18 History BCise] fluticasone 2 spray INTRANASAL HS 03/05/18 03/05/18 History fluticasone-salmeterol [Advair 1 inh INHALATION BID 03/05/18 03/05/18 History Diskus] glimepiride 2 mg PO BID 03/05/18 03/05/18 History insulin degludec [Tresiba 30 unit SUBCUT HS 03/05/18 03/05/18 History FlexTouch U-100] lisinopril 10 mg PO DAILY 03/05/18 03/05/18 History metformin 1,000 mg PO DAILY 03/05/18 03/05/18 History multivitamin 1 tab PO DAILY 03/05/18 03/05/18 History omega-3 fatty acids [Fish Oil 1,000 mg PO DAILY 03/05/18 03/05/18 History Concentrate] sildenafil 25 mg PO DAILY PRN 03/05/18 03/05/18 History vit B complex 100 combo no.2 1 tab PO DAILY 03/05/18 03/05/18 History [B-100 Complex] vitamin E 200 unit PO DAILY 03/05/18 03/05/18 History Results - Labs CBC & Chem 7: 03/14/18 04:15 03/14/18 04:15 Laboratory Results - last 24 hr 03/13/18 03/13/18 03/14/18 17:16 20:54 04:15 WBC 7.9 RBC 4.43 L Hgb 13.5 Hct 40.0 MCV 90.4 MCH 30.4 MCHC 33.7 RDW 13.8 Plt Count 261 MPV 7.6 Neut % (Auto) 66.0 Lymph % (Auto) 21.9 [place] % (Auto) 7.0 Eos % (Auto) 4.7 H Baso % (Auto) 0.4 Neut # (Auto) 5.2 Lymph # (Auto) 1.7 [place] # (Auto) 0.6 Eos # (Auto) 0.4 Baso # (Auto) 0.0 WBC Differential . Differential Comment Auto diff final Sodium Potassium Chloride Carbon Dioxide Anion Gap BUN Creatinine Estimated GFR POC Glucose 256 H 184 H Random Glucose Calcium Magnesium 03/14/18 03/14/18 03/14/18 04:15 07:47 12:11 WBC RBC Hgb Hct MCV MCH MCHC RDW Plt Count MPV Neut % (Auto) Lymph % (Auto) [place] % (Auto) Eos % (Auto) Baso % (Auto) Neut # (Auto) Lymph # (Auto) [place] # (Auto) Eos # (Auto) Baso # (Auto) WBC Differential Differential Comment Sodium 139 Potassium 4.4 Chloride 101 Carbon Dioxide 32.0 Anion Gap 6 BUN 12 Creatinine 0.88 Estimated GFR 89 POC Glucose 165 H 203 H Random Glucose 191 H Calcium 8.6 Magnesium 1.8 Microbiology 03/12/18 17:01 Wound - Foot Gram Stain - Final 03/12/18 17:01 Wound - Foot Wound Culture - Preliminary 03/12/18 17:01 Wound - Foot Acid Fast Bacilli Smear - Final No acid fast bacilli seen 03/12/18 17:01 Wound - Foot Fungal Smear - Final No fungal elements seen Assessment and Plan - Assessment (1) Diabetic infection of right foot Code(s): E11.628 - Type 2 diabetes mellitus with other skin complications; L08.9 - Local infection of the skin and subcutaneous tissue, unspecified Status: Acute Plan: s/p I&D R foot with wound vac, Dr Keith 03/12/18 Discussed in detail absence of PT arterial flow and wound healing issues very likely Removed vac dressing and examined wound. Reduced erythema/edema to digits and improved appearance. The plantar incision area needs to dry out and wrote for every other day betadine to incision and dry sterile dressing per nursing, and to continue upon discharge. Veterinary Inspector consulted to get patient set up with hyperbaric oxygen treatment to attempt limb salvage. Ok with discharge home when this is set up and follow up in-office in 2 weeks
[2018-03-15] MEDS: Ampicillin/Sulbactam Inj 3 GM in Sodium Chloride 0.9% Inj 100 ML IV.SIG SCH ×4 (02:18→20:39)
[2018-03-15] MEDS: Glimepiride 2 MG Tablet PO SCH ×2 (08:56→17:01)
[2018-03-15] MEDS: Enoxaparin Inj 30 MG/0.3 ML Syringe SQ SCH (08:56)
[2018-03-15] MEDS: Lisinopril 10 MG Tablet PO SCH (08:57)
[2018-03-15] MEDS: Insulin NovoLOG Aspart Correctional Sugar Inj SQ SCH ×4 (08:57→20:40)
[2018-03-15] MEDS: Famotidine 20 MG Tablet PO SCH ×2 (08:57→20:40)
[2018-03-15] MEDS: Insulin Detemir Inj 1,000 UNIT/10 ML Vial SQ SCH ×2 (08:58→20:40)
--- NOTE | 2018-03-15 13:38 | P.PNIM ---
Subjective Interval history: No new complaints. Physical Exam Vital signs: Last Vital Signs Temp 98.1 F 03/15/18 12:00 Pulse 79 03/15/18 12:00 Resp 18 03/15/18 12:00 BP 121/56 L 03/15/18 12:00 Pulse Ox 98 03/15/18 12:15 Narrative: General: NAD, AAOx3 Chest: CTA Cardiac: Regular Abd: +BS, soft ND/NT Ext: Right foot with wound vac in placed and bandages are c/d/i Results Labs CBC & Chem 7: 03/14/18 04:15 03/15/18 05:03 Assessment and Plan Assessment (1) Diabetic infection of right foot: Code(s): E11.628 - Type 2 diabetes mellitus with other skin complications; L08.9 - Local infection of the skin and subcutaneous tissue, unspecified Status: Acute (2) Hyperlipidemia: Code(s): E78.5 - Hyperlipidemia, unspecified Status: Chronic (3) GERD (gastroesophageal reflux disease): Code(s): K21.9 - Gastro-esophageal reflux disease without esophagitis Status: Chronic (4) DM type 2, uncontrolled, with retinopathy: Code(s): E11.319 - Type 2 diabetes mellitus with unspecified diabetic retinopathy without macular edema; E11.65 - Type 2 diabetes mellitus with hyperglycemia Status: Chronic (5) HTN (hypertension): Code(s): I10 - Essential (primary) hypertension Status: Chronic Plan Right foot wound Hx of Charcot foot s/p surgical repair - Pt is a 57 y/o male with poorly controlled diabetes, history of right foot Charcot s/p surgical intervention with hardware in 2013, morbid obesity, sleep apnea and diabetic neuropathy. - Patient states he stepped on a nail on Wednesday 02/28. He developed a low- grade fever and was given oral antibiotics in urgent care on 03/02. Patient states he noticed that the infection was getting worse he went back to urgent care and they referred him to the ED. Patient was taking Augmentin prior to this admission. Pt was admitted to [facility] [place] on 03/05/18 - Foot X-Ray (03/05/18) 1. There is gas within the subcutaneous tissues which overlie the proximal phalanx of the second digit. No retained foreign body or destructive changes are seen within the proximal phalanx of the second digit. 2. Previous attempted fusion with failure of the hardware and advanced degenerative changes. - Foot MRI (03/05/18): - Small presumed phlegmonous collection in the plantar soft tissues of the right forefoot as described - Podiatry/ID/Vascular surgery are following. - Podiatry performed a bedside I&D of right foot abscess on 03/05 - Wound Care recommendations per podiatry: - Right foot irrigated and packed with half inch plain packing - Right foot dressed with 4 x 4's, Daniel and Satish - Continue with irrigation and packing change to be performed 2 times daily - Nonweightbearing to right foot - Surgical shoe - Cultures grew out Staph aureus, Enterococcus faecalis, and anaerobic gram negative rods. - Pt has been on Vanc and Zosyn (03/05 - 03/09) - Extremity Arterial Study (03/06/18): 1. Diminished VAN on the right at 0.71. 2. Mildly diminished VAN on the left at 0.9. - Pt was transferred to [facility] on 03/09/18 for Vascular surgery evaluation with angiogram. - Abx changed to Unasyn on 03/09/[address] Ruffin - Pt underwent RLE angiogram (03/10/18) with Dr. 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 There was two-vessel runoff to the right foot via the right peroneal artery, right anterior tibial artery. These vessels noted to be severely diseased at multiple segments. The peroneal artery was treated using atherectomy and angioplasty of the right peroneal artery followed by balloon angioplasty of the right tibial artery with successful results. Completion radiograph shows no flow-limiting dissection and less than 30% residual stenosis. - Pt underwent Irrigation and debridement of right foot with wound VAC placement , and incision and drainage of abscess, right foot on 03/12/[address] Keith. Per the surgical procedure documentation there was very minimal bleeding during the surgery. - Pt/ have had multiple conversations with Dr. Razo, Podiatry, and Vascular Surgery about the absence of PT arterial flow and the possibility of wound healing issues - Per podiatry (03/14): Reduced erythema/edema to digits and improved appearance. The plantar incision area needs to dry out and wrote for every other day betadine to incision and dry sterile dressing per nursing, and to continue upon discharge. - Crystallography Teacher consulted to get patient set up with hyperbaric oxygen treatment to attempt limb salvage. - Pt cleared for discharge by Podiatry - Will need to discuss PICC & d/c antibiotic treatment/length of time with ID - anticipate d/c to home with HHC in 1-2 days - DVT prophylaxis - supportive care Diabetes Mellitus - NovoLog SSI - Amaryl 2mg BID - resumed Metformin (03/14) - continue levemir 10 units SQ BID - Accu checks COPD ROYCE - Duonebs PRN - Cont. CPAP when sleeping - DVT prophylaxis with Lovenox Progress Note: Quality VTE Deep Vein Thrombosis/Pulmonary Embolism Present on Admission: No _ (1) Hyperlipidemia Qualifiers: Hyperlipidemia type: (2) GERD (gastroesophageal reflux disease) Qualifiers: Esophagitis presence: (3) HTN (hypertension) Qualifiers: Hypertension type: essential hypertension Qualified Code(s): I10 - Essential (primary) hypertension
[2018-03-16] MEDS: Ampicillin/Sulbactam Inj 3 GM in Sodium Chloride 0.9% Inj 100 ML IV.SIG SCH ×4 (02:20→20:40)
[2018-03-16] MEDS: Insulin Detemir Inj 1,000 UNIT/10 ML Vial SQ SCH ×2 (08:41→20:40)
[2018-03-16] MEDS: Insulin NovoLOG Aspart Correctional Sugar Inj SQ SCH ×4 (08:41→20:40)
[2018-03-16] MEDS: Famotidine 20 MG Tablet PO SCH ×2 (08:43→20:41)
[2018-03-16] MEDS: Glimepiride 2 MG Tablet PO SCH ×2 (08:43→17:23)
[2018-03-16] MEDS: Enoxaparin Inj 30 MG/0.3 ML Syringe SQ SCH (08:43)
[2018-03-16] MEDS: Lisinopril 10 MG Tablet PO SCH (08:43)
--- NOTE | 2018-03-16 08:50 | P.PNIM ---
Subjective Interval history: Patient resting in bed offers no new concerns/complaints looking forward to [place] home Physical Exam Vital signs: Last Vital Signs Temp 98.0 F 03/16/18 08:00 Pulse 79 03/16/18 08:00 Resp 17 03/16/18 08:00 BP 136/76 03/16/18 08:00 Pulse Ox 95 03/16/18 08:00 Narrative: General: NAD, AAOx3 Chest: CTA Cardiac: Regular Abd: +BS, soft ND/NT Ext: Right foot bandages are c/d/i Results Labs CBC & Chem 7: 03/14/18 04:15 03/15/18 05:03 Assessment and Plan Assessment (1) Diabetic infection of right foot: Code(s): E11.628 - Type 2 diabetes mellitus with other skin complications; L08.9 - Local infection of the skin and subcutaneous tissue, unspecified Status: Acute (2) Hyperlipidemia: Code(s): E78.5 - Hyperlipidemia, unspecified Status: Chronic (3) GERD (gastroesophageal reflux disease): Code(s): K21.9 - Gastro-esophageal reflux disease without esophagitis Status: Chronic (4) DM type 2, uncontrolled, with retinopathy: Code(s): E11.319 - Type 2 diabetes mellitus with unspecified diabetic retinopathy without macular edema; E11.65 - Type 2 diabetes mellitus with hyperglycemia Status: Chronic (5) HTN (hypertension): Code(s): I10 - Essential (primary) hypertension Status: Chronic Plan Right foot wound Hx of Charcot foot s/p surgical repair - Pt is a 57 y/o male with poorly controlled diabetes, history of right foot Charcot s/p surgical intervention with hardware in 2013, morbid obesity, sleep apnea and diabetic neuropathy. - Patient states he stepped on a nail on Wednesday 02/28. He developed a low- grade fever and was given oral antibiotics in urgent care on 03/02. Patient states he noticed that the infection was getting worse he went back to urgent care and they referred him to the ED. Patient was taking Augmentin prior to this admission. Pt was admitted to [facility] [place] on 03/05/18 - Foot X-Ray (03/05/18) 1. There is gas within the subcutaneous tissues which overlie the proximal phalanx of the second digit. No retained foreign body or destructive changes are seen within the proximal phalanx of the second digit. 2. Previous attempted fusion with failure of the hardware and advanced degenerative changes. - Foot MRI (03/05/18): - Small presumed phlegmonous collection in the plantar soft tissues of the right forefoot as described - Podiatry/ID/Vascular surgery are following. - Podiatry performed a bedside I&D of right foot abscess on 03/05 - Wound Care recommendations per podiatry: - Right foot irrigated and packed with half inch plain packing - Right foot dressed with 4 x 4's, Daniel and Satish - Continue with irrigation and packing change to be performed 2 times daily - Nonweightbearing to right foot - Surgical shoe - Cultures grew out Staph aureus, Enterococcus faecalis, and anaerobic gram negative rods. - Pt has been on Vanc and Zosyn (03/05 - 03/09) - Extremity Arterial Study (03/06/18): 1. Diminished VAN on the right at 0.71. 2. Mildly diminished VAN on the left at 0.9. - Pt was transferred to [facility] on 03/09/18 for Vascular surgery evaluation with angiogram. - Abx changed to Unasyn on 03/09/[address] Ruffin - Pt underwent RLE angiogram (03/10/18) with Dr. 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 There was two-vessel runoff to the right foot via the right peroneal artery, right anterior tibial artery. These vessels noted to be severely diseased at multiple segments. The peroneal artery was treated using atherectomy and angioplasty of the right peroneal artery followed by balloon angioplasty of the right tibial artery with successful results. Completion radiograph shows no flow-limiting dissection and less than 30% residual stenosis. - Pt underwent Irrigation and debridement of right foot with wound VAC placement , and incision and drainage of abscess, right foot on 03/12/[address] Keith. Per the surgical procedure documentation there was very minimal bleeding during the surgery. - Pt/ have had multiple conversations with Dr. Razo, Podiatry, and Vascular Surgery about the absence of PT arterial flow and the possibility of wound healing issues - Per podiatry (03/14): Reduced erythema/edema to digits and improved appearance. The plantar incision area needs to dry out and wrote for every other day betadine to incision and dry sterile dressing per nursing, and to continue upon discharge. - Jacker consulted to get patient set up with hyperbaric oxygen treatment to attempt limb salvage. - Pt cleared for discharge by Podiatry - PICC & d/c antibiotic treatment/length per ID, awaiting recommendations - anticipate d/c to home with HHC in 1-2 days - DVT prophylaxis - supportive care Diabetes Mellitus - NovoLog SSI - Amaryl 2mg BID - resumed Metformin (03/14) - continue levemir 10 units SQ BID - Accu checks COPD ROYCE - Duonebs PRN - Cont. CPAP when sleeping - DVT prophylaxis with Lovenox Progress Note: Quality VTE Deep Vein Thrombosis/Pulmonary Embolism Present on Admission: No _ (1) Hyperlipidemia Qualifiers: Hyperlipidemia type: (2) GERD (gastroesophageal reflux disease) Qualifiers: Esophagitis presence: (3) HTN (hypertension) Qualifiers: Hypertension type: essential hypertension Qualified Code(s): I10 - Essential (primary) hypertension
--- NOTE | 2018-03-16 12:13 | P.DCO ---
Diagnosis (1) Diabetic infection of right foot: Status: Acute (2) Hyperlipidemia: Status: Chronic (3) GERD (gastroesophageal reflux disease): Status: Chronic (4) DM type 2, uncontrolled, with retinopathy: Status: Chronic (5) HTN (hypertension): Status: Chronic Physical Therapy Order: Evaluate and treat Home Health Nursing Order: Medical education, Signs/symptoms of disease process, Medication education-adverse effect, Wound care and dressing changes and IV medication administration Instructions: Patient will need the following dressing changes per home health upon discharge: Every 2-days dressing change to right foot with betadine swab to incision line, 4x4 on incision line, 4x4 between all toes, cling, khadra with minimal compression. Case Management Consult Case Management Consult-Home Health: Yes I have seen patient Deni Lyles on 03/16/18. My clinical findings support the need for the requested home health care services because: Limited ability to care for self I certify that my clinical findings support that this patient is homebound because: Unsafe to leave home unassisted _ (1) Hyperlipidemia Qualifiers: Hyperlipidemia type: (2) GERD (gastroesophageal reflux disease) Qualifiers: Esophagitis presence: (3) HTN (hypertension) Qualifiers: Hypertension type: essential hypertension Qualified Code(s): I10 - Essential (primary) hypertension
--- NOTE | 2018-03-16 12:17 | P.DS ---
DS: Providers Date of admission: 03/05/18 12:17 Primary care physician: Juhi Weller MD Consults: 03/05/18 12:22 Consult to Podiatry Routine Consulting Provider: Ibeth Posey Reason for Consultation: DM foot ulcer/ ? osteomyelitis/ failed outpt tx Notified:: Office Spoke with:: SOHAN Date Notified:: 03/05/18 Time Notified:: 12:27 Ordering Provider: JERALD 03/07/18 10:33 Consult to Infectious Diseases Routine Consulting Provider: Rosette Ruffin Reason for Consultation: rt foot ulceration cellultiis staph on cultures ID request as per podiatry Notified:: Service Spoke with:: JAGJIT Date Notified:: 03/07/18 Time Notified:: 10:35 Ordering Provider: LESLIE 03/08/18 09:54 Consult to Vascular Surgery Routine Consulting Provider: Ravindra Harper Reason for Consultation: Decreased VAN to RLE in setting of infection Notified:: Physician Spoke with:: YARED Date Notified:: 03/08/18 Time Notified:: 10:31 Ordering Provider: MAXIMILIANO 03/11/18 17:08 HUB Only Consult Order Routine Consulting Provider: Ryan Frazier,Agency Brief History from admission: 57 y/o male with poorly controlled DM retinopathy and prior Charcot joint presents with note of stepping on a nail on Wednesday 02/28. He states a couple days later he developed a low-grade fever and then after that he developed redness. He went to an urgent care 03/02 and they placed him on a dressing and Augmentin. He states today when it got worse he went back 03/05 for recheck and they sent him here for further care given infection is spreading. He has been taking meds as directed. Still with d/c from wound and had fevers early on as well. Culture from 03/02 reveals Staph aureus but no sensitivities resulted yet per review of outpt EMR. Foot xray reveals chronic arthritic and postsurgical changes as well as gas collection in foot. Podiatry contacted by ER provider (per ER report) and they advised MRI and admission for IV abx/further eval. SH for 30 yrs Originally from [place], has been in the area works as a receivable manager No tobacco since 1997 but prior to that smoked about a pack per day for 18 years No alcohol or illicit drug use DS: Diagnosis Discharge Diagnosis (1) Diabetic infection of right foot: Status: Acute (2) Hyperlipidemia: Status: Chronic (3) GERD (gastroesophageal reflux disease): Status: Chronic (4) DM type 2, uncontrolled, with retinopathy: Status: Chronic (5) HTN (hypertension): Status: Chronic DS: Summary Right foot wound Hx of Charcot foot s/p surgical repair - Pt is a 57 y/o male with poorly controlled diabetes, history of right foot Charcot s/p surgical intervention with hardware in 2013, morbid obesity, sleep apnea and diabetic neuropathy. - Patient states he stepped on a nail on Wednesday 02/28. He developed a low- grade fever and was given oral antibiotics in urgent care on 03/02. Patient states he noticed that the infection was getting worse he went back to urgent care and they referred him to the ED. Patient was taking Augmentin prior to this admission. Pt was admitted to [facility] on 03/05/18 - Foot X-Ray (03/05/18) 1. There is gas within the subcutaneous tissues which overlie the proximal phalanx of the second digit. No retained foreign body or destructive changes are seen within the proximal phalanx of the second digit. 2. Previous attempted fusion with failure of the hardware and advanced degenerative changes. - Foot MRI (03/05/18): - Small presumed phlegmonous collection in the plantar soft tissues of the right forefoot as described - Podiatry/ID/Vascular surgery are following. - Podiatry performed a bedside I&D of right foot abscess on 03/05 - Wound Care recommendations per podiatry: - Right foot irrigated and packed with half inch plain packing - Right foot dressed with 4 x 4's, Daniel and Satish - Continue with irrigation and packing change to be performed 2 times daily - Nonweightbearing to right foot - Surgical shoe - Wound care per Podiatry: Patient will need the following dressing changes per home health upon discharge: Every 2-days dressing change to right foot with betadine swab to incision line, 4x4 on incision line, 4x4 between all toes, cling, satish with minimal compression. - Cultures grew out Staph aureus, Enterococcus faecalis, and anaerobic gram negative rods. - Pt has been on Vanc and Zosyn (03/05 - 03/09) - Extremity Arterial Study (03/06/18): 1. Diminished VAN on the right at 0.71. 2. Mildly diminished VAN on the left at 0.9. - Pt was transferred to [facility] on 03/09/18 for Vascular surgery evaluation with angiogram. - Abx changed to Unasyn on 03/09/[address] Ruffin - Pt underwent RLE angiogram (03/10/18) with Dr. 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 There was two-vessel runoff to the right foot via the right peroneal artery, right anterior tibial artery. These vessels noted to be severely diseased at multiple segments. The peroneal artery was treated using atherectomy and angioplasty of the right peroneal artery followed by balloon angioplasty of the right tibial artery with successful results. Completion radiograph shows no flow-limiting dissection and less than 30% residual stenosis. - Pt underwent Irrigation and debridement of right foot with wound VAC placement , and incision and drainage of abscess, right foot on 03/12/[address] Keith. Per the surgical procedure documentation there was very minimal bleeding during the surgery. - Pt/ have had multiple conversations with Dr. Razo, Podiatry, and Vascular Surgery about the absence of PT arterial flow and the possibility of wound healing issues - Per podiatry (03/14): Reduced erythema/edema to digits and improved appearance. The plantar incision area needs to dry out and wrote for every other day betadine to incision and dry sterile dressing per nursing, and to continue upon discharge. - Medical Consultant consulted to get patient set up with hyperbaric oxygen treatment to attempt limb salvage. 03/16 received call from [facility] case management reporting that [facility] has denied hyperbaric treatment and would like for patient to be seen by [facility] wound clinic for evaluation after DC. - Pt cleared for discharge by Podiatry - PICC & d/c antibiotic treatment/length per ID, awaiting recommendations - anticipate d/c to home with [facility] - DVT prophylaxis - supportive care Diabetes Mellitus - NovoLog SSI - Amaryl 2mg BID - resumed Metformin (03/14) - continue levemir 10 units SQ BID - Accu checks COPD ROYCE - Duonebs PRN - Cont. CPAP when sleeping - DVT prophylaxis with Lovenox Time Spent with Patient Total time spent providing and/or coordinating discharge services: Quality: VTE Deep Vein Thrombosis/Pulmonary Embolism Present on Admission: No Exam Narrative Exam Narrative: General: NAD, AAOx3 Chest: CTA Cardiac: Regular Abd: +BS, soft ND/NT Ext: Right foot bandages are c/d/i Results Labs on day of discharge: Labs from last 24 hours 03/16/18 03/16/18 03/15/18 11:36 07:41 20:38 POC Glucose 128 H 169 H 228 H 03/15/18 17:01 POC Glucose 219 H Impressions ITS Impressions Foot X-Ray 03/05/18 09:35 CONCLUSION: 1. There is gas within the subcutaneous tissues which overlie the proximal phalanx of the second digit. No retained foreign body or destructive changes are seen within the proximal phalanx of the second digit. 2. Previous attempted fusion with failure of the hardware and advanced degenerative changes. Foot MRI 03/05/18 11:27 CONCLUSION: Small presumed phlegmonous collection in the plantar soft tissues of the right forefoot as described Extremity Arterial Study 03/06/18 00:00 CONCLUSION: 1. Diminished VAN on the right at 0.71. 2. Mildly diminished VAN on the left at 0.9. Discharge Plan Discharge Disposition Patient Disposition: W/Home Health Service Discharge Condition Condition: Stable Discharge Order Discharge Orders: Discharge Order (Routine); Ordered 03/16/18 Ordered By: Nicole Emerson Vascular Surgery Clear for Discharge (Routine); Ordered 03/12/18 Ordered By: Ethel Ball Discharge Details Discharge Comment: DC once abx arranged and PICC line placed Physicians Team ED Provider: Dawn Hinds Primary Care Provider: Juhi Weller Attending Provider: Trevor Razo Other Providers: Ibeth Posey ; Rosette Ruffin ; Ravindra Harper ; [facility],Agency Rxs /Orders / Referrals /Forms Prescriptions: Continue multivitamin Tablet 1 tab PO DAILY RF: 0 fluticasone-salmeterol [Advair Diskus] 250-50 mcg/dose Blister With Device 1 inh INHALATION BID RF: 0 atorvastatin 80 mg Tablet 80 mg PO DAILY RF: 0 vitamin E 200 unit Capsule 200 unit PO DAILY RF: 0 omega-3 fatty acids [Fish Oil Concentrate] 1,000 mg Capsule 1,000 mg PO DAILY RF: 0 sildenafil 25 mg Tablet 25 mg PO DAILY PRN (Reason: activity) RF: 0 glimepiride 2 mg Tablet 2 mg PO BID RF: 0 ascorbic acid (vitamin C) [Vitamin C] 250 mg Tablet 250 mg PO DAILY RF: 0 metformin 1,000 mg Tablet 1,000 mg PO DAILY RF: 0 lisinopril 10 mg Tablet 10 mg PO DAILY RF: 0 beta carotene 10,000 unit Capsule 5,000 unit PO DAILY RF: 0 albuterol sulfate [Ventolin HFA] 90 mcg/actuation Hfa Aerosol Inhaler 1 - 2 puff INHALATION Q4-6H PRN (Reason: Shortness Of Breath) RF: 0 fluticasone 50 mcg/actuation Runnells,Suspension 2 spray Intranasal HS RF: 0 vit B complex 100 combo no.2 [B-100 Complex] 100 mg Tablet Extended Release 1 tab PO DAILY RF: 0 insulin degludec [Tresiba FlexTouch U-100] 100 unit/mL (3 mL) Insulin Pen 30 unit SUBCUT HS RF: 0 exenatide microspheres [Bydureon BCise] 2 mg/0.85 mL Auto-Injector 2 mg SUBCUT Q7D RF: 0 cholecalciferol (vitamin D3) [Vitamin D3] 2,000 unit Capsule 2,000 unit PO DAILY RF: 0 Referrals: Juhi Weller MD [Primary Care Provider] - 03/26/18 3:00 pm (follow up in 1 week) Franklin Nguyen MD [Physician] - See Instructions ([facility] wound care clinic in 3-5 days) Myrtle Keith DPM [Physician] - 04/01/18 10:30 am (follow up in 2 weeks) Bolivar Boyce MD [Physician] - 03/25/18 9:30 am (Your post op follow up with a surveillance VAN is scheduled on 03/25/18 at 9:30) [facility] [Agency] - See Instructions Discharge Instructions Additional Instructions: Patient will need the following dressing changes per home health upon discharge : Every 2-days dressing change to right foot with betadine swab to incision line , 4x4 on incision line, 4x4 between all toes, cling, satish with minimal compression. Status ED Status: Left Department
--- NOTE | 2018-03-16 14:50 | P.DCO ---
Post Hospital Infusion Therapy - Infusion Therapy Location of Infusion Therapy: Home Health Care IV Infusion Order - Patient Information Patient Weight: 109.7 kg - Diagnosis (1) Diabetic infection of right foot Code(s): E11.628 - Type 2 diabetes mellitus with other skin complications; L08.9 - Local infection of the skin and subcutaneous tissue, unspecified - Administer Medication Ampicillin/Sulbactam Directions: q 6 hours Additional Dosing Instructions: 3 gm q 6 hrs Start Treatment: 03/16/18 Stop Treatment: 04/23/18 - Additional Information Venous Access: PICC Line Additional Instructions: [x] Peripheral flush and dressing changes per protocol [x] Implanted port and central quitline counselor: * Implanted port: 10 ml Normal Saline followed by 5 ml Heparin 100 units/ml Heparin flush after each use and monthly to maintain. [] May leave port accessed during therapy. [] May leave peripheral site accessed for duration of therapy. [x] If patient has SOB or respiratory distress, check oxygen saturation. If less than 90% or clinical signs of respiratory distress, administer oxygen at 2 L/min. via nasal cannula and notify physician. [x] Anaphylaxis/Reaction orders: * Stop infusion. * Keep IV line open with saline flush. * Notify physician. * Monitor vital signs every 15 minutes until symptoms resolve. * Check Oxygen saturation; Oxygen at 2 L/min. via nasal cannula if less than 90% or clinical signs of respiratory distress. * Administer diphenhydramine (Benadryl) 25 mg IV STAT, (unless patient has received as pre-med). May repeat once, if necessary. * Solu-Cortef 250 mg IVP over 30-60 seconds, use 100 mg vials for each dissolution. * Epinephrine (1mg/1 ml) 0.3 mg subcutaneously or IVP now with any signs of respiratory distress. * Check with physician for new additional pre-med orders if patient is re- challenged or re-treated. [x] May remove PICC line when treatment complete, after confirming with Physician. [x] If the patient is admitted to the hospital, the ED, or transferred via [facility] , complete transfer form including medication reconciliation order sheet. Weekly Labs: CBC w/diff, CMP, CRP, SED Rate - Case Management Consult Case Management Consult-IVF: Yes - Patient Information Allergies No Known Allergies Allergy (Verified 03/05/18 09:21)
--- NOTE | 2018-03-16 17:03 | P.PNID ---
Subjective Remarks: doing good no fever Antibiotics: unasyn Allergies/Adverse Reactions: Allergies No Known Allergies Allergy (Verified 03/05/18 09:21) Objective Vital Signs 03/15/18 19:51 03/15/18 23:54 03/16/18 08:00 Temperature 98.0 F 98.3 F 98.0 F Pulse Rate 84 69 79 Respiratory Rate 21 21 17 Blood Pressure 113/59 L 113/70 136/76 Pulse Oximetry 93 L 95 95 03/16/18 12:39 Temperature 98.5 F Pulse Rate 81 Respiratory Rate 17 Blood Pressure 128/67 Pulse Oximetry 94 L Intake & Output 03/15/18 03/16/18 03/16/18 18:59 06:59 18:59 Intake Total 1200 / 1200 1100 / 1100 200 / 200 Balance 1200 / 1200 1100 / 1100 200 / 200 Weight 109.7 kg 109.7 kg Intake: IV 200 / 200 200 / 200 200 / 200 Unasyn Inj 3 GM In NS Inj 100 200 / 200 200 / 200 200 / 200 ML @ 200 mls/hr IV.SIG Q6H MALACHI Rx#:[id number] Oral 1000 / 1000 900 / 900 Other: # Voids 3 3 # Bowel Movements 1 03/12/18 17:01 Wound - Foot Gram Stain - Final 03/12/18 17:01 Wound - Foot Wound Culture - Final 03/12/18 17:01 Wound - Foot Acid Fast Bacilli Smear - Final No acid fast bacilli seen 03/12/18 17:01 Wound - Foot Mycobacterial Culture - Pending Lab - Chemistry Results 03/14/18 03/15/18 03/15/18 20:45 05:03 07:33 Creatinine 0.98 Estimated GFR 79 L POC Glucose 274 H 169 H 03/15/18 03/15/18 03/15/18 11:38 17:01 20:38 Creatinine Estimated GFR POC Glucose 167 H 219 H 228 H 03/16/18 03/16/18 07:41 11:36 Creatinine Estimated GFR POC Glucose 169 H 128 H Imaging: ITS Impressions Foot X-Ray 03/05/18 09:35 CONCLUSION: 1. There is gas within the subcutaneous tissues which overlie the proximal phalanx of the second digit. No retained foreign body or destructive changes are seen within the proximal phalanx of the second digit. 2. Previous attempted fusion with failure of the hardware and advanced degenerative changes. Foot MRI 03/05/18 11:27 CONCLUSION: Small presumed phlegmonous collection in the plantar soft tissues of the right forefoot as described Extremity Arterial Study 03/06/18 00:00 CONCLUSION: 1. Diminished VAN on the right at 0.71. 2. Mildly diminished VAN on the left at 0.9. Physical Exam: GENERAL: NAD SKIN: Warm and dry. no rash RESPIRATORY: No accessory muscle use. breasthing unlabouresd MUSCULOSKELETAL: R foot with dressing in place NEUROLOGICAL: Awake and alert. Non focal PSYCHIATRIC: Appropriate mood and affect; Assessment and Plan (1) Diabetic infection of right foot Status: Acute Code(s): E11.628 - Type 2 diabetes mellitus with other skin complications; L08.9 - Local infection of the skin and subcutaneous tissue, unspecified - Plan R foot DFI, mixed aerobic- anaerobic sp stepping on the nail Agree with podiatry regardign more surgery and VAC Severe PVD on angiogram sp Atherectomy of the right peroneal artery, Balloon angioplasty of the right peroneal artery, Balloon angioplasty of the right anterior tibial artery cont Unasyn x 6 weeks, other options, Unasyn x 4 weeks followed by 2 weeks po OK to dc [facility] team dw case mngr
[2018-03-16] MEDS ORDERED: Heparin Central Flush 100 UNIT/ML 5 ML Vial IV.FLUSH PRN (18:43)
[2018-03-17] MEDS: Ampicillin/Sulbactam Inj 3 GM in Sodium Chloride 0.9% Inj 100 ML IV.SIG SCH ×3 (01:18→15:18)
[2018-03-17 07:07] LABS: Glomerular Filtration Rate Greater Than 89 mL/min (>89)
[2018-03-17] MEDS ORDERED: Heparin Central Flush 100 UNIT/ML 5 ML Vial IV.FLUSH SCH (09:00)
[2018-03-17] MEDS: Famotidine 20 MG Tablet PO SCH (09:20)
[2018-03-17] MEDS: Lisinopril 10 MG Tablet PO SCH (09:20)
[2018-03-17] MEDS: Glimepiride 2 MG Tablet PO SCH (09:20)
[2018-03-17] MEDS: Insulin Detemir Inj 1,000 UNIT/10 ML Vial SQ SCH (09:21)
[2018-03-17] MEDS: Insulin NovoLOG Aspart Correctional Sugar Inj SQ SCH ×2 (09:21→12:00)
[2018-03-17] MEDS: Enoxaparin Inj 30 MG/0.3 ML Syringe SQ SCH (09:23)
--- NOTE | 2018-03-17 15:43 | P.DCO ---
Post Hospital Infusion Therapy - Infusion Therapy Location of Infusion Therapy: Home Health Care IV Infusion Order - Patient Information Patient Weight: 109.7 kg - Diagnosis (1) Diabetic infection of right foot Code(s): E11.628 - Type 2 diabetes mellitus with other skin complications; L08.9 - Local infection of the skin and subcutaneous tissue, unspecified - Administer Medication Ampicillin/Sulbactam Directions: q 6 hours Additional Dosing Instructions: 3 gm Start Treatment: 03/17/18 Stop Treatment: 04/06/18 - Additional Information Venous Access: PICC Line Additional Instructions: [x] Peripheral flush and dressing changes per protocol [x] Implanted port and central hogshead liner: * Implanted port: 10 ml Normal Saline followed by 5 ml Heparin 100 units/ml Heparin flush after each use and monthly to maintain. [] May leave port accessed during therapy. [] May leave peripheral site accessed for duration of therapy. [x] If patient has SOB or respiratory distress, check oxygen saturation. If less than 90% or clinical signs of respiratory distress, administer oxygen at 2 L/min. via nasal cannula and notify physician. [x] Anaphylaxis/Reaction orders: * Stop infusion. * Keep IV line open with saline flush. * Notify physician. * Monitor vital signs every 15 minutes until symptoms resolve. * Check Oxygen saturation; Oxygen at 2 L/min. via nasal cannula if less than 90% or clinical signs of respiratory distress. * Administer diphenhydramine (Benadryl) 25 mg IV STAT, (unless patient has received as pre-med). May repeat once, if necessary. * Solu-Cortef 250 mg IVP over 30-60 seconds, use 100 mg vials for each dissolution. * Epinephrine (1mg/1 ml) 0.3 mg subcutaneously or IVP now with any signs of respiratory distress. * Check with physician for new additional pre-med orders if patient is re- challenged or re-treated. [x] May remove PICC line when treatment complete, after confirming with Physician. [x] If the patient is admitted to the hospital, the ED, or transferred via [facility] , complete transfer form including medication reconciliation order sheet. Weekly Labs: CBC w/diff, CMP, CRP, SED Rate - Case Management Consult Case Management Consult-IVF: Yes - Patient Information Allergies No Known Allergies Allergy (Verified 03/05/18 09:21)
== END 2018-03-17 17:01 | disposition home health service (06) ==
LOC: PHED 09:18 → PHEDA 12:17 → PH3 14:00 → N07 03-09 14:02
PROVIDERS: ADMIT Hospitalist; ATTEND Hospitalist
PROC: ANGIOLE (2018-03-10 10:30)
DX: S91.331D Puncture wound without foreign body, right foot, subsequent encounter; Z83.3 Family history of diabetes mellitus; K59.00 Constipation, unspecified; K21.0 Gastro-esophageal reflux disease with esophagitis; L97.519 Non-pressure chronic ulcer of other part of right foot with unspecified severity; W45.0XXD Nail entering through skin, subsequent encounter; L03.115 Cellulitis of right lower limb; G47.33 Obstructive sleep apnea (adult) (pediatric); E78.5 Hyperlipidemia, unspecified; E66.01 Morbid (severe) obesity due to excess calories; Z79.899 Other long term (current) drug therapy; E11.621 Type 2 diabetes mellitus with foot ulcer; E11.65 Type 2 diabetes mellitus with hyperglycemia; Z68.34 Body mass index [BMI] 34.0-34.9, adult; Z82.49 Family history of ischemic heart disease and other diseases of the circulatory system; E11.628 Type 2 diabetes mellitus with other skin complications; J44.9 Chronic obstructive pulmonary disease, unspecified; E78.00 Pure hypercholesterolemia, unspecified; E11.319 Type 2 diabetes mellitus with unspecified diabetic retinopathy without macular edema; I10 Essential (primary) hypertension; L02.611 Cutaneous abscess of right foot; Z79.4 Long term (current) use of insulin; I70.235 Atherosclerosis of native arteries of right leg with ulceration of other part of foot; Z87.442 Personal history of urinary calculi; E11.610 Type 2 diabetes mellitus with diabetic neuropathic arthropathy; Z87.891 Personal history of nicotine dependence